=== PATIENT | female | born 1965 | race Caucasian/White ===

== ENCOUNTER 2020-03-15 14:00 | Outpatient (RCR) | payer OTHER, SELFPAY ==
--- NOTE | 2020-02-17 09:47 | MHC.PT.EP ---
[facility] [place] Office [place] Office [place] Office [address] Godwin Russell [address] [phone] F: [phone] F: [phone] F: [phone] F: [phone] Physical Therapy Plan of Care Date of Evaluation: 02/17/20 Date of Surgery: Diagnosis: LEFT SHOULDER STRAIN Assessment: PATIENT PRESENTS WITH SIGNS AND SYMPTOMS OF LEFT SHOULDER MUSCULAR STRAIN. PATIENT DOES PRESENT WITH DIFFICULTY WITH OUTSTRETCHED UE PATTERNS AND STABILITY WITH OBJECT MANIPULATION AWAY FROM MIDLINE. PATIENT DOES WARRANT SHOULDER STABILIZATION PROGRAM TO ADDRESS REDUCTION OF STRESS WITH LIFTING/CARRYING. PATIENT IS A GOOD CANDIDATE FOR SKILLED PT INTERVENTION TO ADDRESS GOALS AND IMPROVE SHOULDER FUNCTION TO ASSIST WITH DIFFICULTY WITH ADL'S. Frequency and Duration: The patient will be seen 2X WEEK X 6 WEEKS Short Term Goals: 1. PATIENT WILL BE INDEPENDENT WITH HEP 2. PATIENT WILL PRESENT WITH UPRIGHT AND MIDLINE POSTURE 3. REDUCTION IN TTP TO CERVICAL REGION BY 25% Assisted Goals: 1. INCREASE CERVICAL AROM BY 25% 2. REDUCE PAIN TO WORST TO 2/10 3. INCREASED SHOULDER STABILITY WITH OUTSTRETCHED UE PATTERNS 4. REDUCE TTP BY 75% 5. PATIENT WILL PRESENT WITH PROPER AND SAFE LIFTING/CARRYING MECHANICS TO REDUCE STRESS TO NECK AND SHOULDERS 6. INCREASE MMT TO SHOULDER GIRDLE BY 1 GRADE TO ASSIST WITH ADL'S Treatment Plan: Modalities to reduce pain, spasms and effusion. Manual therapy to restore motion and function. Therapeutic exercise to improve strength and flexibility. Neuromuscular re-education for posture and balance. Therapeutic activities to return to functional activities of daily living. Please sign and return to therapist. Thank you for your referral.
== END 2020-06-08 09:44 | disposition other institution (70) ==
LOC: HO.PTWFD 14:00
PROVIDERS: PCP Family Medicine; Visit Provider Family Medicine
DX: S46.912D Strain of unspecified muscle, fascia and tendon at shoulder and upper arm level, left arm, subsequent encounter (principal); M62.838 Other muscle spasm; X58.XXXD Exposure to other specified factors, subsequent encounter
CPT/HCPCS: 97110; 97140; 97162

== ENCOUNTER 2020-08-03 14:47 | Inpatient (IN) | payer OTHER, SELFPAY ==
[2020-08-03] VITALS (13 sets, daily range): BP systolic 88–105; BP diastolic 42–60; PULSE 61–67; RESP 15–20; TEMP 36.7–36.8; O2SAT 96–100; BMI 14.2; BMI 35.0
--- NOTE | ~2020-08-03 | XR_ITS ---
EXAMINATION: XR CHEST CLINICAL INFORMATION: Weakness COMPARISON: August 04, 2019 and April 29, 2019 TECHNIQUE: AP portable view of the chest was obtained. FINDINGS: No significant abnormality is noted involving the heart, lungs, mediastinum, bony thorax or soft tissues. XR/XR chest 1V IMPRESSION: No acute disease.
--- NOTE | 2020-08-03 15:01 | ECG_ITS ---
Test Reason : OD Blood Pressure : / mmHG Vent. Rate : 060 BPM Atrial Rate : 060 BPM P-R Int : 152 ms QRS Dur : 074 ms QT Int : 422 ms P-R-T Axes : 038 022 051 degrees QTc Int : 422 ms Normal sinus rhythm Normal ECG No previous ECGs available Referred By: Gela Wells Electronically Signed By:TY BURTON
--- NOTE | 2020-08-03 15:08 | PC.NURSE ---
poison control called at this time. states to continue with blood work and ekg. supportive measures and re-eval in an hour. be aware for : gabapentin- sedation, paxil- serotonin syndrome, tizanidine- dizziness and hypotension. music historian aware.
[2020-08-03] MEDS: Activated charcoaL 50 GM/240 ML ORAL.SUSP PO (15:23)
[2020-08-03] MEDS: 0.9 % Sodium Chloride 1,000 ML 999 ML IV ×2 (15:23→16:29)
[2020-08-03 15:54] LABS: MANUAL DIFF FLAG NO
[2020-08-03 16:00] LABS: Basophils Percent Auto 0.4 % (0-2); Hemoglobin 11.6 g/dl (12.0-16.0); Imm Gran Abs Auto 0.01 X10*3/uL (0.00-0.03); Imm Gran Pct Auto 0.1 % (0.0-0.4); Lymphocytes Absolute Auto 1.4 X10*3/uL (1.2-4.9); Lymphocytes Percent Auto 18.1 % (20-40); Mean Corpuscular HGB Conc 33.1 g/dl (31.0-35.0); Mean Corpuscular Hemoglobin 30.9 pg (27.0-33.0); Mean Corpuscular Volume 93.1 fL (80-98); Mean Platelet Volume 9.9 fL (9.4-12.3); Monocytes Absolute Auto 0.4 X10*3/uL (0.1-1.2); Monocytes Percent Auto 5.4 % (2-11); Neutrophils Absolute Auto 5.7 X10*3/uL (2.0-8.3); Platelet Count 281 X10*3/uL (160-400); Red Blood Count 3.76 X10*6/uL (4.20-5.50); Red Cell Distribution Width 12.7 % (11.0-16.0); White Blood Count 7.5 X10*3/uL (4.8-10.8)
--- NOTE | 2020-08-03 16:04 | PC.NURSE ---
pt drank all of the charcoal/ 1:1 sitter at bedside.
[2020-08-03 16:19] LABS: INTERNATIONAL NORM RATIO 1.1 (0.9-1.1); Prothrombin Time 13.2 SEC (10.8-13.0)
[2020-08-03 16:20] LABS: Ethanol < 10 mg/dL
[2020-08-03 16:21] LABS: Partial Thromboplastin Time 32.3 SEC (24.1-38.0)
[2020-08-03 16:23] LABS: Acetaminophen LAB 5 mcg/mL (<30); Salicylate < 5.0 mg/dL (15-30)
--- NOTE | 2020-08-03 16:23 | PC.NURSE ---
pt's other daughter (ezra) just left pt's bedside and she was also updated on pt's status as her sister gordon was earlier.
[2020-08-03 16:24] LABS: Alanine Aminotransferase 18 U/L (0-31); Albumin Level 4.2 g/dL (3.5-5.0); Alkaline Phosphatase 58 U/L (39-117); Anion Gap 13 (12-20); Aspartate Amino Transferase 19 U/L (5-31); Bilirubin Total 0.7 mg/dL (0.0-1.0); Blood Urea Nitrogen 10 mg/dL (9-16); Calcium 8.9 mg/dL (8.4-10.2); Carbon Dioxide 23 mmol/L (22-29); Chloride 105 mmol/L (96-108); Creatinine Clr Calc Pharmacy 42.2; Estimated Glomerular Filt Rate > 60; Glucose Random 133 mg/dL (60-115); Potassium 4.2 mmol/L (3.3-5.1); Sodium 137 mmol/L (135-145); Total Protein 6.7 g/dL (6.5-8.0)
--- NOTE | 2020-08-03 16:43 | ED.OVERDOSE ---
HPI - Overdose General Chief Complaint: Overdose Stated Complaint: SI Time Seen by Provider: 08/03/20 15:00 Source: EMS Mode of arrival: EMS Limitations: no limitations History of Present Illness HPI Narrative: 55-year-old female with history of fibromyalgia, gastroesophageal reflux disease, hyperlipidemia and depression who presents via EMS from home with intentional overdose on multiple of her medications including for tizanidine, gabapentin, paroxetine. Per EMS reported overdose was at 13:15 today and occurred as she was feeling depressed had a recent break-up with her boyfriend. Patient admits to putting tizanidine, paroxetine and gabapentin in a ?bowl? and took them as she was having ?pain all over? and did not want to deal with any more. complaint: intentional overdose Onset (ago): hour(s) Time: 13:15 Timing confirmed by: other (She called her daughter prior to the overdose and stated that she was going to. Daughter called EMS.) Intent: suicide attempt Context: Intentional Overdose: relationship problems Associated symptoms: depression Treatments Prior to Arrival: none Related Data Home Medications Medication Instructions Recorded Confirmed blood sugar diagnostic #10 ea 02/23/20 02/23/20 omeprazole 1 cap PO DAILY PRN 08/03/20 08/03/20 Previous Rx's Medication Instructions Recorded ibuprofen 600 mg tablet 600 mg PO Q8H PRN 30 Days #90 tab 02/23/20 atorvastatin 20 mg tablet 20 mg PO DAILY #90 tab 05/01/20 cholecalciferol (vitamin D3) 50 50 mcg PO DAILY #90 cap 05/01/20 mcg (2,000 unit) capsule paroxetine HCl 40 mg tablet 40 mg PO QAM #90 tab 05/01/20 tizanidine 4 mg tablet 4 mg PO BEDTIME #90 tab 05/01/20 gabapentin 300 mg capsule 300 mg PO BID #60 cap 07/09/20 Allergies Allergy/AdvReac Type Severity Reaction Status Date / Time Latex, Natural Rubber Allergy Intermediate RASH, HIVES Verified 02/23/20 15:06 [LATEX, NATURAL RUBBER] buspirone AdvReac Unknown chest Verified 02/23/20 15:06 heaviness, increased anxiety Pt states no known allergy to Allergy Unknown none Uncoded 02/23/20 15:06 Mirtazapine AdvReac Unknown extreme Uncoded 02/23/20 15:06 somnolence Review of Systems Review of Systems: Constitutional: No Weight loss, No Fever, No Chills, No Night Sweats, No Fatigue, No Malaise ENT/Mouth: No Hearing loss, No Ear Pain, No Nasal Congestion, No Sinus Pain, No Hoarseness, No sore throat, No Rhinorrhea, No Swallowing Difficulty Eyes: No Eye Pain, No Swelling, No Redness, No Foreign Body, No Discharge, No Vision Changes Cardiovascular: No Chest Pain, No SOB, No Dyspnea on Exertion, No Orthopnea, No Edema, No Palpitations Respiratory: No Cough, No Sputum, No Wheezing, No Dyspnea Gastrointestinal: No Nausea, No Vomiting, No Diarrhea, No Constipation, No abdominal Pain, No Hematochezia, No Melena Genitourinary: no irregular bleeding, No Dysuria, No Urinary Frequency, No Hematuria, No Urinary Incontinence, No Urgency, No Flank Pain, No Urinary Flow Changes, No Hesitancy Musculoskeletal: No joint pain, No Myalgias, No Joint Swelling Skin: No Skin Lesions, No rash Neuro: No Weakness, No Numbness, No Paresthesias, No Loss of Consciousness, No Dizziness, No Headache Psych: As noted per HPI Heme/Lymph: No Bruising, No Bleeding,No Lymphadenopathy Endocrine: No Polyuria, No Polydipsia, No Temperature Intolerance Yes all other systems are reviewed and are negative [facility] Past Medical History Medical History (Updated 08/03/20 @ 17:26 by Allen Ambrosio NP) Chronic GERD Depression Fibromyalgia Gastroesophageal reflux disease Social History Social History Use of substances other than those prescribed or required for medical reasons: No Advance Directives: No Advance Directives Information Provided: Yes Physical Exam Vital Signs: Vital Signs: Last Vital Signs Temp 98.3 F 08/03/20 14:53 Pulse 67 08/03/20 16:49 Resp 16 08/03/20 16:49 BP 89/46 L 08/03/20 16:49 Pulse Ox 100 08/03/20 16:49 Body Mass Index 14.2 Reviewed Const: General: awake and lethargic (Alert and oriented x3 but slow to speak) Nutritional Appearance: overweight Orientation/consciousness: patient oriented x3 and lethargic (Alert and oriented x3 but slow to speak) HENMT: Other: Gag reflex within normal limits Head: Yes normal to inspection Ears: hearing grossly normal bilaterally Eyes: General: appearance normal, both eyes and all related structures Visual Saha: normal visual saha by confrontation Neck: Neck: Yes normal visual inspection, No positive Brudzinski's sign, No positive Kernig's sign and No tender Thyroid: Thyroid normal Chest: Chest palpation & inspection: normal inspection of the chest Resp: Effort & Inspection: normal respiratory effort Auscultation: clear to auscultation bilaterally Cardio: Jugular venous distension: no JVD Rhythm: regular rhythm Heart sounds: S1 normal heart sound present and S2 normal heart sound present GI: Inspection: Yes normal to inspection Palpation (GI): Soft to palpation Percussion: Yes normal to percussion Auscultation: normal bowel sounds : General: Yes no CVA tenderness Back/Spine/Pelvis: Back: no CVA tenderness Skin: General skin exam: no rashes or lesions noted Neuro: General: patient oriented x3 Cranial nerves: Yes CN's II-XII intact bilaterally, Yes Facial sensation intact/muscles of mastication intact and Yes Normal accommodation reflex present Extrem: General: Yes normal to inspection Psych: Speech and movement: Slowed speech present (Psych) Affect: Sad affect present Attitude: cooperative Thought content: Suicidality present Course Reevaluation(s) Reevaluation #1: 1510 In review 55-year-old female with fibromyalgia, GERD, hyperlipidemia presenting with intentional overdose on multiple of her medications including [id number] agonists, SSRI and anticonvulsant reportedly occurred prior to arrival unsure the exact time right now daughter is on her way. We will go ahead and give her activated charcoal and check EKG, labs including liver function tests, Tylenol and acetaminophen with alcohol, U tox CPK as she is on a statin and consult poison Control. At this time she is managing her airway, blood pressure slightly on the soft side otherwise she is alert and oriented x3. List from the primary care on 02/23/2020 Listed medication include atorvastatin 20 mg Vitamin D 350 mcg Gabapentin no dosage Nabumetone no dosage Paroxetine HCl 40 mg Tizanidine 4 mg Sign [id number] To Sarika LEON Aware that I spoke to hospitalist already regarding the patient and accepted the care likely will have to wait until night hospitalist given influx of admissions. Repeat labs are already ordered Reevaluation #2: 1540 Daughter comes in and states he had attacks at 13:15 mother stating that she was going to overdose she called her and told her how she was feeling and states she was not take her pills hung up the phone and apparently took her pills daughter was in our way does she called for help and had it this way. Per daughter she has 1 prior history of SI about 15 years ago at the time when her broke up with her and she attempted at side by way of cutting herself. BP on soft side 90/57 per dtr she at baseline runs low Reevaluation #3: 1630 Initial set of blood work all stable appearing. Blood pressure remains on the soft side after L of fluid 2nd L bolus provided She is alert and oriented remains slightly lethargic. Repeat labs for 1800 ordered. Additional Reevaluation(s): I have evaluated patient multiple times at bedside for evaluation of airway management and hemodynamics stability as well as consultation with the patient's family/daughter at bedside. In addition to this coordinating care with intensive care/intermediate care. Consultations Consultation #1: 1511 Case discussed with poison control based on the findings to monitor for serotonin syndrome Supportive care in terms of airway and monitoring Please refer to nursing note Consultation #2: 1620 Case d/w senior planner Dr. Holder the given the extent of her overdose and the need for observation. Given that she is maintaining her airway and the drug classes feels that observation is warranted but not at the ICU level. Consultation #3: 1640 Case discussed with hospitalist Dr. Nicholson labs and case reviewed agreeable admission though they are backed up and likely will go to evening attending. MDM - Overdose Differential Diagnosis Differential diagnosis: Likely suicide attempt by multiple drug overdose, drug overdose and accidental drug ingestion Medical Records Attestation: I reviewed the patient's medical records. Medical records narrative: 2019 visit to primary care reviewed Lab Data Attestation: I reviewed the patient's lab results. Result diagrams: 08/03/20 15:43 08/03/20 15:43 Labs: Lab Results 08/03/20 08/03/20 08/03/20 Range/Units 15:43 15:43 15:43 WBC 7.5 (4.8-10.8) X10*3/uL RBC 3.76 L (4.20-5.50) X10*6/uL Hgb 11.6 L (12.0-16.0) g/dl Hct 35.0 L (37-47) % MCV 93.1 (80-98) fL MCH 30.9 (27.0-33.0) pg MCHC 33.1 (31.0-35.0) g/dl RDW 12.7 (11.0-16.0) % Plt Count 281 (160-400) X10*3/uL MPV 9.9 (9.4-12.3) fL Immature Gran % (Auto) 0.1 (0.0-0.4) % Neut % (Auto) 76.0 H (45-73) % Lymph % (Auto) 18.1 L (20-40) % [place] % (Auto) 5.4 (2-11) % Eos % (Auto) 0.0 (0-4) % Baso % (Auto) 0.4 (0-2) % Lymph # (Auto) 1.4 (1.2-4.9) X10*3/uL [place] # (Auto) 0.4 (0.1-1.2) X10*3/uL Eos # (Auto) 0.0 (0.0-0.4) X10*3/uL Baso # (Auto) 0.0 (0.0-0.2) X10*3/uL Abs Immat Gran (auto) 0.01 (0.00-0.03) X10*3/uL Absolute Neuts (auto) 5.7 (2.0-8.3) X10*3/uL Absolute Nucleated RBC 0.000 (0.0-0.012) X10*3/uL Nucleated RBC % (auto) 0.0 (0.0-0.2) /100WBC PT 13.2 H (10.8-13.0) SEC INR 1.1 (0.9-1.1) APTT 32.3 (24.1-38.0) SEC Sodium 137 (135-145) mmol/L Potassium 4.2 (3.3-5.1) mmol/L Chloride 105 (96-108) mmol/L Carbon Dioxide 23 (22-29) mmol/L Anion Gap 13 (12-20) BUN 10 (9-16) mg/dL Creatinine 0.84 (0.5-1.4) mg/dL Estim Creat Clear Calc 42.2 Estimated GFR > 60 Random Glucose 133 H (60-115) mg/dL Lactic Acid (0.5-2.0) mmol/L Calcium 8.9 (8.4-10.2) mg/dL Magnesium 2.0 (1.6-2.6) mg/dL Total Bilirubin 0.7 (0.0-1.0) mg/dL AST 19 (5-31) U/L ALT 18 (0-31) U/L Alkaline Phosphatase 58 (39-117) U/L Total Creatine Kinase 91 (26-140) U/L Total Protein 6.7 (6.5-8.0) g/dL Albumin 4.2 (3.5-5.0) g/dL Salicylates (15-30) mg/dL Acetaminophen (<30) mcg/mL Ethyl Alcohol mg/dL 08/03/20 08/03/20 08/03/20 Range/Units 15:43 15:43 15:44 WBC (4.8-10.8) X10*3/uL RBC (4.20-5.50) X10*6/uL Hgb (12.0-16.0) g/dl Hct (37-47) % MCV (80-98) fL MCH (27.0-33.0) pg MCHC (31.0-35.0) g/dl RDW (11.0-16.0) % Plt Count (160-400) X10*3/uL MPV (9.4-12.3) fL Immature Gran % (Auto) (0.0-0.4) % Neut % (Auto) (45-73) % Lymph % (Auto) (20-40) % [place] % (Auto) (2-11) % Eos % (Auto) (0-4) % Baso % (Auto) (0-2) % Lymph # (Auto) (1.2-4.9) X10*3/uL [place] # (Auto) (0.1-1.2) X10*3/uL Eos # (Auto) (0.0-0.4) X10*3/uL Baso # (Auto) (0.0-0.2) X10*3/uL Abs Immat Gran (auto) (0.00-0.03) X10*3/uL Absolute Neuts (auto) (2.0-8.3) X10*3/uL Absolute Nucleated RBC (0.0-0.012) X10*3/uL Nucleated RBC % (auto) (0.0-0.2) /100WBC PT (10.8-13.0) SEC INR (0.9-1.1) APTT (24.1-38.0) SEC Sodium (135-145) mmol/L Potassium (3.3-5.1) mmol/L Chloride (96-108) mmol/L Carbon Dioxide (22-29) mmol/L Anion Gap (12-20) BUN (9-16) mg/dL Creatinine (0.5-1.4) mg/dL Estim Creat Clear Calc Estimated GFR Random Glucose (60-115) mg/dL Lactic Acid 1.0 (0.5-2.0) mmol/L Calcium (8.4-10.2) mg/dL Magnesium (1.6-2.6) mg/dL Total Bilirubin (0.0-1.0) mg/dL AST (5-31) U/L ALT (0-31) U/L Alkaline Phosphatase (39-117) U/L Total Creatine Kinase (26-140) U/L Total Protein (6.5-8.0) g/dL Albumin (3.5-5.0) g/dL Salicylates < 5.0 L (15-30) mg/dL Acetaminophen 5 (<30) mcg/mL Ethyl Alcohol < 10 mg/dL Imaging Data Chest x-ray: Radiologist's impression: [address] [id number] ReportSigned Patient: Sheri BraggMR#: [id number]: [id number]:[id number]/Sex: 55 / FADM Date: 08/03/20Loc: Raegan Mcgrath: Ordering Physician: Allen Ambrosio NP Date of Service: 08/03/20 Procedure(s): XR chest 1V Accession Number(s): [id number] cc: Allen Ambrosio NP~ EXAMINATION: XR CHEST CLINICAL INFORMATION: Weakness COMPARISON: August 04, 2019 and April 29, 2019 TECHNIQUE: AP portable view of the chest was obtained. FINDINGS: No significant abnormality is noted involving the heart, lungs, mediastinum, bony thorax or soft tissues. XR/XR chest 1V IMPRESSION: No acute disease. Dictated By:SVEN MOCK V MDSigned By:<Electronically signed by SVEN MOCK MD in OV>08/03/20 1539 DD/ 1501TD/TT: General Engineer: ANA ECG Data Interpretation: EKG 1. Normal sinus rhythm Rate 60 P.R. interval 152 QRS 74 QT/QTC 422/[address] segment changes. No previous Critical Care Time Critical Care Time Critical Care Time: Yes Total Critical Care Time: 65 Attestation: Patient evaluated directly upon arrival for potential hemodynamic instability/airway compromise secondary to ingestion of multiple different class of medications. Subsequently multiple visits to bedside for evaluation of her blood pressure as well as airway management and coordination of care including coordination of care with intensive care unit, intermediate care and family. Discharge Plan Discharge Clinical Impression: Depression, Suicide attempt by multiple drug overdose, Intentional overdose of selective serotonin reuptake inhibitor (SSRI) Patient Disposition: Admitted As Inpatient
--- NOTE | 2020-08-03 16:45 | PC.NURSE ---
manda ([facility]) at bedside, pt/daughter aware of plan of care for admission to hosp.
[2020-08-03 17:25] LABS: Glucose Urine UA NEG (NEG); Leukocyte Esterase Urine NEG (NEG); Nitrite Urine NEG (NEG); Specific Gravity - Urine <= 1.005 (1.005-1.025); Urine Blood NEG (NEG); Urine Ketones 15 MG/DL (NEG); Urine Protein NEG (NEG-TRACE)
[2020-08-03 17:29] LABS: Appearance Urine CLEAR; Color Urine YELLOW
[2020-08-03 17:45] LABS: RBC Urine 0-2 /HPF (0); Squamous Epithelial Cell Urine TRACE /LPF; WBC Urine 0 /HPF (0-4)
[2020-08-03 17:59] LABS: Amphetamine Screen Urine Not Detected (Not Detect); Barbiturates, Urine Not Detected (Not Detect); Benzodiazepines Screen Urine Not Detected (Not Detect); Cannabinoid Screen Urine Not Detected (Not Detect); Cocaine Screen Urine Not Detected (Not Detect); Opiate Screen Urine Not Detected (Not Detect); Phencyclidine Screen Urine Not Detected (Not Detect)
--- NOTE | 2020-08-03 18:00 | ECG_ITS ---
Test Reason : OD Blood Pressure : / mmHG Vent. Rate : 065 BPM Atrial Rate : 065 BPM P-R Int : 154 ms QRS Dur : 080 ms QT Int : 402 ms P-R-T Axes : 038 022 030 degrees QTc Int : 418 ms Normal sinus rhythm Normal ECG No significant changes when compared with the previous EKG of 03 august 2020 Referred By: Gela Wells Electronically Signed By:TY BURTON
--- NOTE | 2020-08-03 18:06 | PC.NURSE ---
poison control ([place] [facility] [place] and was updated on pt status. owen (poison control) states no new recommendations at this time, but they will continue to follow pt's progress when she gets on the medical floor.
[2020-08-03 18:48] LABS: COVID-19 Test Negative (Negative)
[2020-08-03 18:49] LABS: Acetaminophen LAB 2 mcg/mL (<30); Alanine Aminotransferase 17 U/L (0-31); Albumin Level 3.7 g/dL (3.5-5.0); Alkaline Phosphatase 51 U/L (39-117); Anion Gap 12 (12-20); Aspartate Amino Transferase 16 U/L (5-31); Bilirubin Total 0.5 mg/dL (0.0-1.0); Blood Urea Nitrogen 9 mg/dL (9-16); Calcium 7.8 mg/dL (8.4-10.2); Carbon Dioxide 19 mmol/L (22-29); Chloride 113 mmol/L (96-108); Creatinine Clr Calc Pharmacy 37.7; Estimated Glomerular Filt Rate > 60; Glucose Random 124 mg/dL (60-115); Potassium 4.1 mmol/L (3.3-5.1); Salicylate < 5.0 mg/dL (15-30); Sodium 140 mmol/L (135-145); Total Protein 5.7 g/dL (6.5-8.0)
[2020-08-03] MEDS: Acetaminophen 325 MG TABLET 650 MG PO (23:03)
[2020-08-03] MEDS: Enoxaparin Sodium 40 MG/0.4 ML SYRINGE SUBCUT (23:31)
[2020-08-04 00:09] LABS: Anion Gap 12 (12-20); Blood Urea Nitrogen 7 mg/dL (9-16); Calcium 7.9 mg/dL (8.4-10.2); Carbon Dioxide 22 mmol/L (22-29); Chloride 112 mmol/L (96-108); Creatinine Clr Calc Pharmacy 77.4; Estimated Glomerular Filt Rate > 60; Glucose Random 99 mg/dL (60-115); Sodium 142 mmol/L (135-145)
[2020-08-04] MEDS: 0.9 % Sodium Chloride Flush 3 ML SYRINGE IVFLUSH ×3 (01:21→17:42)
[2020-08-04] MEDS: traMADoL HCL 50 MG TABLET PO (03:15)
[2020-08-04 04:00] VITALS: BP 95/59; PULSE 81; RESP 20; O2SAT 99
--- NOTE | 2020-08-04 04:00 | PM.IMHP ---
History of Present Illness Date of Service: 08/03/20 Chief Complaint: overdose Medical history of GERD, depression, fibromyalgia, who presents to the hospital after was suicide attempt. Patient is somnolent but arousable. She is answering questions appropriately. She reports that she took various medications including Paxil, gabapentin, and 10 is a Arturo because she wanted to stop the pain. She says that she has pain all over she just wants this pain to stop and therefore she tried to end her life. She is still suicidal, no homicidal. At this time she denies any abdominal pain, chest pain, shortness of breath, headache, change in vision, no nausea vomiting, no abdominal pain, no diarrhea or constipation, no urinary symptoms and no lower extremity edema. On arrival to the ED hemodynamically stable with no abnormal vitals Labs are significant for WBC count of 7.5, hemoglobin of 11.6, PT of 13.2, INR of 1.1, sodium 137, potassium 4.2, labs otherwise unremarkable, UDS negative, amitriptyline level pending, Tylenol level not detected, salicylate level negative Case was discussed with poison control by ED PA and patient will be admitted for monitoring of serotonin syndrome Past medical history as below and confirmed with patient Review of Systems Review of Systems: Yes all other systems are reviewed and are negative [facility] Medical History Chronic GERD Depression Fibromyalgia Gastroesophageal reflux disease Social History Household Members: None Housing: Homeless Smoking Status: Never smoker Use of substances other than those prescribed or required for medical reasons: Yes Substance Use Type: Marijuana Substance Use Type Other:: CBD/THC tincture Last Used Substance: Days (ago) Currently Displaying Signs/Symptoms of Drug Intoxication Withdrawal: No Have you been hit, kicked, punched, or otherwise hurt by someone within the past year? If so, by whom?: No Do you feel safe in your current relationship?: No Current Relationship Is there a partner from a previous relationship who is making you feel unsafe now?: No Are you made to feel afraid or neglected: No Advance Directives: No Advance Directives Information Provided: Yes Do you have thoughts of harming others: None Do you have a plan to hurt others: No Plan Recently lost weight without trying: No Meds Allergies Allergy/AdvReac Type Severity Reaction Status Date / Time Latex, Natural Rubber Allergy Intermediate RASH, HIVES Verified 02/23/20 15:06 [LATEX, NATURAL RUBBER] buspirone AdvReac Unknown chest Verified 02/23/20 15:06 heaviness, increased anxiety Pt states no known allergy to Allergy Unknown none Uncoded 02/23/20 15:06 Mirtazapine AdvReac Unknown extreme Uncoded 02/23/20 15:06 somnolence Active Medications: Current Medications Generic Name Dose Route Start Last Admin Trade Name Freq PRN Reason Stop Dose Admin Acetaminophen 650 mg 08/03/20 22:53 08/03/20 23:03 Acetaminophen 325 Mg Tablet PO 650 mg Q6H PRN Administration Pain, Mild (Pain Scale 1-3) Enoxaparin Sodium 40 mg 08/03/20 23:00 08/03/20 23:31 Enoxaparin Sodium 40 Mg/0.4 Ml Syringe SUBCUT 40 mg Q24H DA Administration Sodium Chloride 3 ml 08/04/20 00:00 08/04/20 01:21 0.9 % Sodium Chloride Flush 3 Ml Syringe IVFLUSH 3 ml QSHIFT DA Administration Home Medications Medication Instructions Recorded Confirmed Last Taken Type blood sugar diagnostic #10 ea 02/23/20 02/23/20 Unknown History omeprazole 1 cap PO DAILY PRN 08/03/20 08/03/20 08/03/20 History Physical Exam Vital Signs and Narrative: Vital Signs: Last Vital Signs Temp 98.0 F 08/03/20 23:13 Pulse 66 08/03/20 23:13 Resp 20 08/03/20 23:13 BP 105/58 L 08/03/20 23:13 Pulse Ox 100 08/03/20 23:13 Body Mass Index 35.0 Const: Other: Somnolent but arousable General: cooperative and no acute distress Orientation/consciousness: patient oriented x3 Eyes: General: appearance normal, both eyes and all related structures Resp: Effort & Inspection: normal respiratory effort and able to speak in complete sentences Cardio: Rate: regular rate Rhythm: regular rhythm GI: Palpation (GI): Soft to palpation Auscultation: normal bowel sounds Skin: General skin exam: no rashes or lesions noted Neuro: General: patient oriented x3 Cognition (Neuro): normal cognition Extrem: General: Yes normal to inspection and Yes no pedal edema Results Labs CBC and Chem 7: 08/03/20 15:43 08/03/20 23:29 Labs: Laboratory Results - last 24 hr 08/03/20 08/03/20 08/03/20 15:43 15:43 15:43 MCV 93.1 MCH 30.9 MCHC 33.1 RDW 12.7 Plt Count 281 MPV 9.9 Immature Gran % (Auto) 0.1 Neut % (Auto) 76.0 H Lymph % (Auto) 18.1 L [place] % (Auto) 5.4 Eos % (Auto) 0.0 Baso % (Auto) 0.4 Lymph # (Auto) 1.4 [place] # (Auto) 0.4 Eos # (Auto) 0.0 Baso # (Auto) 0.0 Abs Immat Gran (auto) 0.01 Absolute Neuts (auto) 5.7 Absolute Nucleated RBC 0.000 Nucleated RBC % (auto) 0.0 PT 13.2 H INR 1.1 APTT 32.3 Anion Gap 13 Estim Creat Clear Calc 42.2 Estimated GFR > 60 Random Glucose 133 H Lactic Acid Calcium 8.9 Magnesium 2.0 Total Bilirubin 0.7 AST 19 ALT 18 Alkaline Phosphatase 58 Total Creatine Kinase 91 Total Protein 6.7 Albumin 4.2 Urine Color Urine Appearance Urine pH Ur Specific [place] Urine Protein Urine Glucose (UA) Urine Ketones Urine Blood Urine Nitrite Ur Leukocyte Esterase Urine RBC Urine WBC Ur Squamous Epith Cells Urine Bacteria Salicylates Urine Opiates Screen Acetaminophen Ur Barbiturates Screen Ur Phencyclidine Scrn Ur Amphetamines Screen U Benzodiazepines Scrn Urine Cocaine Screen U Marijuana (THC) Screen Ethyl Alcohol COVID-19 (BRANDI) COVID-19 Clin Com 08/03/20 08/03/20 08/03/20 15:43 15:43 15:44 MCV MCH MCHC RDW Plt Count MPV Immature Gran % (Auto) Neut % (Auto) Lymph % (Auto) [place] % (Auto) Eos % (Auto) Baso % (Auto) Lymph # (Auto) [place] # (Auto) Eos # (Auto) Baso # (Auto) Abs Immat Gran (auto) Absolute Neuts (auto) Absolute Nucleated RBC Nucleated RBC % (auto) PT INR APTT Anion Gap Estim Creat Clear Calc Estimated GFR Random Glucose Lactic Acid 1.0 Calcium Magnesium Total Bilirubin AST ALT Alkaline Phosphatase Total Creatine Kinase Total Protein Albumin Urine Color Urine Appearance Urine pH Ur Specific [place] Urine Protein Urine Glucose (UA) Urine Ketones Urine Blood Urine Nitrite Ur Leukocyte Esterase Urine RBC Urine WBC Ur Squamous Epith Cells Urine Bacteria Salicylates < 5.0 L Urine Opiates Screen Acetaminophen 5 Ur Barbiturates Screen Ur Phencyclidine Scrn Ur Amphetamines Screen U Benzodiazepines Scrn Urine Cocaine Screen U Marijuana (THC) Screen Ethyl Alcohol < 10 COVID-19 (BRANDI) COVID-19 Clin Com 08/03/20 08/03/20 08/03/20 17:04 17:04 17:49 MCV MCH MCHC RDW Plt Count MPV Immature Gran % (Auto) Neut % (Auto) Lymph % (Auto) [place] % (Auto) Eos % (Auto) Baso % (Auto) Lymph # (Auto) [place] # (Auto) Eos # (Auto) Baso # (Auto) Abs Immat Gran (auto) Absolute Neuts (auto) Absolute Nucleated RBC Nucleated RBC % (auto) PT INR APTT Anion Gap Estim Creat Clear Calc Estimated GFR Random Glucose Lactic Acid Calcium Magnesium Total Bilirubin AST ALT Alkaline Phosphatase Total Creatine Kinase Total Protein Albumin Urine Color YELLOW Urine Appearance CLEAR Urine pH 6.0 Ur Specific [place] <= 1.005 Urine Protein NEG Urine Glucose (UA) NEG Urine Ketones 15 Urine Blood NEG Urine Nitrite NEG Ur Leukocyte Esterase NEG Urine RBC 0-2 Urine WBC 0 Ur Squamous Epith Cells TRACE Urine Bacteria NONE Salicylates Urine Opiates Screen Not Detected Acetaminophen Ur Barbiturates Screen Not Detected Ur Phencyclidine Scrn Not Detected Ur Amphetamines Screen Not Detected U Benzodiazepines Scrn Not Detected Urine Cocaine Screen Not Detected U Marijuana (THC) Screen Not Detected Ethyl Alcohol COVID-19 (BRANDI) Negative COVID-19 Clin Com See Note 08/03/20 08/03/20 17:54 23:29 MCV MCH MCHC RDW Plt Count MPV Immature Gran % (Auto) Neut % (Auto) Lymph % (Auto) [place] % (Auto) Eos % (Auto) Baso % (Auto) Lymph # (Auto) [place] # (Auto) Eos # (Auto) Baso # (Auto) Abs Immat Gran (auto) Absolute Neuts (auto) Absolute Nucleated RBC Nucleated RBC % (auto) PT INR APTT Anion Gap 12 12 Estim Creat Clear Calc 37.7 77.4 Estimated GFR > 60 > 60 Random Glucose 124 H 99 Lactic Acid Calcium 7.8 L D 7.9 L Magnesium Total Bilirubin 0.5 AST 16 ALT 17 Alkaline Phosphatase 51 Total Creatine Kinase 79 Total Protein 5.7 L Albumin 3.7 Urine Color Urine Appearance Urine pH Ur Specific [place] Urine Protein Urine Glucose (UA) Urine Ketones Urine Blood Urine Nitrite Ur Leukocyte Esterase Urine RBC Urine WBC Ur Squamous Epith Cells Urine Bacteria Salicylates < 5.0 L Urine Opiates Screen Acetaminophen 2 Ur Barbiturates Screen Ur Phencyclidine Scrn Ur Amphetamines Screen U Benzodiazepines Scrn Urine Cocaine Screen U Marijuana (THC) Screen Ethyl Alcohol COVID-19 (BRANDI) COVID-19 Clin Com Imaging Radiologist's Impressions: Impressions Chest X-Ray 08/03/20 15:01 IMPRESSION: No acute disease. Assessment and Plan (1) Suicide attempt by multiple drug overdose: Status: Acute (2) Intentional overdose of selective serotonin reuptake inhibitor (SSRI): Status: Acute (3) Depression: Status: Acute This is a 55-year-old female with past medical history of GERD, depression, presents to the hospital after a suicide attempt by ingesting multiple medications. Quantity unknown. # suicide attempt by drug overdose - patient reports that she took Paxil, gabapentin, and 10 is a Arturo - currently hemodynamically stable - labs unremarkable - EKG within normal Plan: - case has been discussed with poison control - patient will be admitted for monitoring of serotonin syndrome - sitter at bedside - psych consult # SSIR overdose - will admit and monitor for serotonin syndrome - holding all meds at this time # GERD - hold PPI # Depression - Hold antidepressants given med overdose DVT prophylaxis: Lovenox
[2020-08-04 05:04] LABS: MANUAL DIFF FLAG NO
[2020-08-04 05:07] LABS: Basophils Percent Auto 0.5 % (0-2); Hematocrit 35.1 % (37-47); Hemoglobin 11.4 g/dl (12.0-16.0); Imm Gran Abs Auto 0.01 X10*3/uL (0.00-0.03); Imm Gran Pct Auto 0.1 % (0.0-0.4); Lymphocytes Absolute Auto 1.7 X10*3/uL (1.2-4.9); Lymphocytes Percent Auto 23.3 % (20-40); Mean Corpuscular HGB Conc 32.5 g/dl (31.0-35.0); Mean Corpuscular Hemoglobin 30.7 pg (27.0-33.0); Mean Corpuscular Volume 94.6 fL (80-98); Mean Platelet Volume 10.3 fL (9.4-12.3); Monocytes Absolute Auto 0.4 X10*3/uL (0.1-1.2); Neutrophils Absolute Auto 5.1 X10*3/uL (2.0-8.3); Neutrophils Percent Auto 70.1 % (45-73); Platelet Count 261 X10*3/uL (160-400); Red Blood Count 3.71 X10*6/uL (4.20-5.50); Red Cell Distribution Width 12.9 % (11.0-16.0); White Blood Count 7.3 X10*3/uL (4.8-10.8)
[2020-08-04 05:27] LABS: Anion Gap 15 (12-20); Blood Urea Nitrogen 6 mg/dL (9-16); Carbon Dioxide 17 mmol/L (22-29); Chloride 113 mmol/L (96-108); Creatinine Clr Calc Pharmacy 89.1; Estimated Glomerular Filt Rate > 60; Glucose Random 95 mg/dL (60-115); Potassium 3.9 mmol/L (3.3-5.1); Sodium 141 mmol/L (135-145)
[2020-08-04 07:45] VITALS: BP 116/65; PULSE 82; RESP 20; TEMP 36.2; O2SAT 99
[2020-08-04 09:56] VITALS: O2SAT 96
[2020-08-04] MEDS: Acetaminophen 325 MG TABLET 650 MG PO ×2 (10:19→17:41)
--- NOTE | 2020-08-04 10:29 | MHC.CM.PN ---
met with pt who has a sitter ,pt will be seen by bhn who will determine pts safe dc paln
[2020-08-04 12:00] VITALS: BP 148/81; PULSE 69; RESP 18; TEMP 36.4; O2SAT 98
--- NOTE | 2020-08-04 12:11 | HO.PM.IMPN ---
Subjective Subjective Date of Service: 08/04/20 Interval History: Patient feels better this morning, complaining of prn headache ,generalized body ache unable to give detailed history about how many pills of Paxil or gabapentin she took, sounds very depressed , crying recently came to find out that her boyfriend is alcoholic. ROS General prn headaches, no dizziness no fever chills. CVS no chest pain, no palpitation. Respiratory no cough, no sob. Gastrointestinal no nausea, no vomiting, no abdominal pain Physical Exam Vital Signs: Vital Signs: Last Vital Signs Temp 97.2 F 08/04/20 07:45 Pulse 82 08/04/20 07:45 Resp 20 08/04/20 07:45 BP 116/65 08/04/20 07:45 Pulse Ox 96 08/04/20 09:56 Body Mass Index 35.0 General no acute distress. Neck is supple no JVD. CVS regular rate rhythm, Respiratory lungs clear to auscultation, no respiratory distress, no wheeze, no rhonchi. Gastrointestinal abdomen soft, nontender, bowel sounds audible, no guarding , no rigidity. Extremities no clubbing cyanosis or edema. Neuro nonfocal , speech clear. Psych depressed mood Skin no rash Objective Data Current Medications Generic Name Dose Route Start Last Admin Trade Name Freq PRN Reason Stop Dose Admin Acetaminophen 650 mg 08/03/20 22:53 08/04/20 10:19 Acetaminophen 325 Mg Tablet PO 650 mg Q6H PRN Administration Pain, Mild (Pain Scale 1-3) Enoxaparin Sodium 40 mg 08/03/20 23:00 08/03/20 23:31 Enoxaparin Sodium 40 Mg/0.4 Ml Syringe SUBCUT 40 mg Q24H DA Administration Sodium Chloride 3 ml 08/04/20 00:00 08/04/20 10:19 0.9 % Sodium Chloride Flush 3 Ml Syringe IVFLUSH 3 ml QSHIFT DA Administration Labs CBC & Chem 7: 08/04/20 04:22 08/04/20 04:22 Assessment and Plan (1) Suicide attempt by multiple drug overdose: Status: Acute (2) Intentional overdose of selective serotonin reuptake inhibitor (SSRI): Status: Acute (3) Depression: Status: Acute (4) Gastroesophageal reflux disease: Status: Acute (5) Fibromyalgia: Status: Acute Assessment and Plan: 55-year-old female with past medical history of GERD, depression, presents to the hospital after a suicide attempt by ingesting multiple medications. Quantity unknown. # suicide attempt by drug overdose Patient took Paxil, tizanidine and gabapentin unknown quantity of pills, no evidence of serotonin toxicity, no tachycardia, no tremors no hyper-reflexia Labs showed normal CPK but low bicarb, currently hemodynamically stable, patient treated with charcoal and IV fluid in the ER Likely severe underlying depression currently not being followed by psychiatry or counseling being managed by primary care physician common a likely aggravating factors are boyfriend is an alcoholic and patient was told that she has TESS positive speckled pattern and has not seen a specialist due to COVID. Continue sitter at bedside/psych eval will need BPH crisis once medically stable # generalized pain/headache/fibromyalgia at present patient asymptomatic last night was given tramadol with good relief requesting for as needed tramadol, will order Ultram, patient appears very comfortable at present. # GERD Will resume PPI # Depression Hold antidepressants given med overdose DVT prophylaxis: Lovenox
[2020-08-04 16:00] VITALS: BP 123/65; PULSE 80; RESP 18; TEMP 37.3; O2SAT 95
[2020-08-04 19:03] VITALS: BP 96/66; PULSE 85; RESP 18; TEMP 36.1; O2SAT 97
[2020-08-04] MEDS: traMADoL HCL 50 MG TABLET 25 MG PO (22:22)
[2020-08-04] MEDS: Enoxaparin Sodium 40 MG/0.4 ML SYRINGE SUBCUT (22:22)
[2020-08-05] VITALS (7 sets, daily range): BP systolic 95–121; BP diastolic 54–77; PULSE 70–80; RESP 16–20; TEMP 36.1–36.6; O2SAT 96–99
[2020-08-05] MEDS: 0.9 % Sodium Chloride Flush 3 ML SYRINGE IVFLUSH ×3 (00:12→16:39)
[2020-08-05] MEDS: Omeprazole 20 MG CAPSULE.DR PO (06:36)
[2020-08-05 08:01] LABS: Anion Gap 14 (12-20); Blood Urea Nitrogen 12 mg/dL (9-16); Carbon Dioxide 22 mmol/L (22-29); Chloride 110 mmol/L (96-108); Creatinine Clr Calc Pharmacy 79.3; Estimated Glomerular Filt Rate > 60; Glucose Random 104 mg/dL (60-115); Potassium 4.3 mmol/L (3.3-5.1); Sodium 142 mmol/L (135-145)
[2020-08-05 08:13] LABS: Calcium 8.7 mg/dL (8.4-10.2)
[2020-08-05] MEDS: traMADoL HCL 50 MG TABLET 25 MG PO ×2 (09:18→22:26)
--- NOTE | 2020-08-05 09:36 | HO.PM.IMPN ---
Subjective Subjective Date of Service: 08/05/20 Interval History: Patient seen and examined at bedside. She is feeling better, less suicidal, would like to go home. She denies any abdominal pain nausea or vomiting, no headache, no change in vision, no chest pain or shortness of breath. No fever or chills. Physical Exam Vital Signs: Vital Signs: Last Vital Signs Temp 97.7 F 08/05/20 07:18 Pulse 70 08/05/20 07:18 Resp 18 08/05/20 07:18 BP 96/54 L 08/05/20 07:18 Pulse Ox 98 08/05/20 07:18 Body Mass Index 35.0 Const: General: cooperative and no acute distress Orientation/consciousness: patient oriented x3 Eyes: General: appearance normal, both eyes and all related structures Resp: Effort & Inspection: normal respiratory effort and able to speak in complete sentences Auscultation: clear to auscultation bilaterally Cardio: Rate: regular rate Rhythm: regular rhythm GI: Palpation (GI): Soft to palpation Auscultation: normal bowel sounds Skin: General skin exam: no rashes or lesions noted Neuro: General: patient oriented x3 Cognition (Neuro): normal cognition Extrem: General: Yes normal to inspection and Yes no pedal edema Objective Data Current Medications Generic Name Dose Route Start Last Admin Trade Name Freq PRN Reason Stop Dose Admin Acetaminophen 650 mg 08/03/20 22:53 08/04/20 17:41 Acetaminophen 325 Mg Tablet PO 650 mg Q6H PRN Administration Pain, Mild (Pain Scale 1-3) Enoxaparin Sodium 40 mg 08/03/20 23:00 08/04/20 22:22 Enoxaparin Sodium 40 Mg/0.4 Ml Syringe SUBCUT 40 mg Q24H DA Administration Omeprazole 20 mg 08/05/20 06:30 08/05/20 06:36 Omeprazole 20 Mg Capsule.Dr PO 20 mg DAILY@0630 DA Administration Sodium Chloride 3 ml 08/04/20 00:00 08/05/20 09:13 0.9 % Sodium Chloride Flush 3 Ml Syringe IVFLUSH 3 ml QSHIFT DA Administration Tramadol HCl 25 mg 08/04/20 12:25 08/05/20 09:18 Tramadol Hcl 50 Mg Tablet PO 25 mg Q6H PRN Administration Pain, Severe (Pain Scale 7-10) Labs CBC & Chem 7: 08/04/20 04:22 08/05/20 07:08 Assessment and Plan (1) Suicide attempt by multiple drug overdose: Status: Acute (2) Intentional overdose of selective serotonin reuptake inhibitor (SSRI): Status: Acute (3) Depression: Status: Acute Assessment and Plan: 55-year-old female with past medical history of GERD, depression, presents to the hospital after a suicide attempt by ingesting multiple medications. Quantity unknown. # suicide attempt by drug overdose - Patient took Paxil, tizanidine and gabapentin unknown quantity of pills, no evidence of serotonin toxicity, no tachycardia, no tremors no hyper-reflexia - Labs showed normal CPK but low bicarb, currently hemodynamically stable, patient treated with charcoal and IV fluid in the ER - Likely severe underlying depression currently not being followed by psychiatry or counseling being managed by primary care physician common a likely aggravating factors are boyfriend is an alcoholic as well as her worrying about her health - Continue sitter at bedside/psych eval - Will consult N - Medically cleared to be transferred to U # generalized pain/headache/fibromyalgia - at present patient asymptomatic - Ultram PRN - restart gabapentin # GERD - Will resume PPI # Depression - Resume paxil DVT ppx: Lovenox Dispo: To be evaluated by [facility] and
[2020-08-05] MEDS: PARoxetine HCL 40 MG TABLET PO (10:37)
[2020-08-05] MEDS: Enoxaparin Sodium 40 MG/0.4 ML SYRINGE SUBCUT (22:25)
[2020-08-05] MEDS: Gabapentin 300 MG CAPSULE PO (22:25)
[2020-08-06] MEDS: 0.9 % Sodium Chloride Flush 3 ML SYRINGE IVFLUSH ×4 (00:49→22:23)
[2020-08-06 04:00] VITALS: PULSE 79; RESP 16; TEMP 36.1; O2SAT 98
[2020-08-06] MEDS: Omeprazole 20 MG CAPSULE.DR PO (06:44)
[2020-08-06 07:36] LABS: Anion Gap 13 (12-20); Blood Urea Nitrogen 11 mg/dL (9-16); Calcium 8.9 mg/dL (8.4-10.2); Carbon Dioxide 25 mmol/L (22-29); Chloride 108 mmol/L (96-108); Creatinine Clr Calc Pharmacy 81.3; Estimated Glomerular Filt Rate > 60; Glucose Random 87 mg/dL (60-115); Potassium 3.9 mmol/L (3.3-5.1); Sodium 142 mmol/L (135-145)
[2020-08-06 07:52] VITALS: BP 97/56; PULSE 73; RESP 16; TEMP 35.8; O2SAT 98
[2020-08-06] MEDS: PARoxetine HCL 40 MG TABLET PO (09:43)
[2020-08-06] MEDS: Gabapentin 300 MG CAPSULE PO ×2 (09:43→22:19)
[2020-08-06] MEDS: traMADoL HCL 50 MG TABLET 25 MG PO ×2 (09:53→22:40)
[2020-08-06 11:10] VITALS: BP 119/79; PULSE 83; RESP 18; TEMP 36; O2SAT 98
[2020-08-06 15:37] VITALS: BP 135/83; PULSE 71; RESP 20; TEMP 36.9; O2SAT 99
--- NOTE | 2020-08-06 15:44 | HO.PM.IMPN ---
Subjective Subjective Date of Service: 08/06/20 Interval History: Patient is standing and adding sugar to her coffee , offers no acute complaints, provide history of few normal days followed by extreme exhaustion after doing regular house chores, feels her current medication gabapentin is not helping her with pain. ROS General no headache, no dizziness, no fever chills. CVS no chest pain, no palpitation. Respiratory no cough, no sputum production, no respiratory distress. Gastrointestinal no nausea, no vomiting, no abdominal pain Physical Exam Vital Signs: Vital Signs: Last Vital Signs Temp 98.5 F 08/06/20 15:37 Pulse 71 08/06/20 15:37 Resp 20 08/06/20 15:37 BP 135/83 08/06/20 15:37 Pulse Ox 99 08/06/20 15:37 Body Mass Index 35.0 General no acute distress. Neck supple, no JVD. CVS regular rate rhythm, Respiratory lungs clear to auscultation, no respiratory distress, no wheeze, no rhonchi. Gastrointestinal abdomen soft, nontender, bowel sounds audible, no guarding , no rigidity. Extremities no clubbing cyanosis or edema. Neuro nonfocal , speech clear. Psych appropriate affect Skin no rash Objective Data Current Medications Generic Name Dose Route Start Last Admin Trade Name Freq PRN Reason Stop Dose Admin Acetaminophen 650 mg 08/03/20 22:53 08/04/20 17:41 Acetaminophen 325 Mg Tablet PO 650 mg Q6H PRN Administration Pain, Mild (Pain Scale 1-3) Enoxaparin Sodium 40 mg 08/03/20 23:00 08/05/20 22:25 Enoxaparin Sodium 40 Mg/0.4 Ml Syringe SUBCUT 40 mg Q24H DA Administration Gabapentin 300 mg 08/05/20 21:00 08/06/20 09:43 Gabapentin 300 Mg Capsule PO 300 mg BID DA Administration Omeprazole 20 mg 08/05/20 06:30 08/06/20 06:44 Omeprazole 20 Mg Capsule.Dr PO 20 mg DAILY@0630 DA Administration Paroxetine HCl 40 mg 08/05/20 09:45 08/06/20 09:43 Paroxetine Hcl 40 Mg Tablet PO 40 mg DAILY DA Administration Sodium Chloride 3 ml 08/04/20 00:00 08/06/20 09:43 0.9 % Sodium Chloride Flush 3 Ml Syringe IVFLUSH 3 ml QSHIFT DA Administration Tramadol HCl 25 mg 08/04/20 12:25 08/06/20 09:53 Tramadol Hcl 50 Mg Tablet PO 25 mg Q6H PRN Administration Pain, Severe (Pain Scale 7-10) Labs CBC & Chem 7: 08/04/20 04:22 08/06/20 05:48 Assessment and Plan (1) Suicide attempt by multiple drug overdose: Status: Acute (2) Intentional overdose of selective serotonin reuptake inhibitor (SSRI): Status: Acute (3) Depression: Status: Acute (4) Gastroesophageal reflux disease: Status: Acute (5) Fibromyalgia: Status: Acute Assessment and Plan: 55-year-old female with past medical history of GERD, depression, presents to the hospital after a suicide attempt by ingesting multiple medications. Quantity unknown. # suicide attempt by drug overdose - Patient took Paxil, tizanidine and gabapentin unknown quantity of pills, no evidence of serotonin toxicity, no tachycardia, no tremors no hyper-reflexia - Labs showed normal CPK ,initially low bicarb that normalized, currently hemodynamically stable, patient treated with charcoal and IV fluid in the ER - Likely severe underlying depression currently not being followed by psychiatry or counseling being managed by primary care physician ,likely aggravating factors are boyfriend is an alcoholic and She recently came to know about elevated TESS with speckled pattern concerned about lupus - Continue sitter at bedside, patient seen by N and they are doing bed search. # generalized pain/headache/fibromyalgia - at present patient asymptomatic, continue Ultram PRN and continue gabapentin # GERD - PPI # Depression - on paxil DVT ppx: Lovenox
--- NOTE | 2020-08-06 18:46 | PC.NURSE ---
Called [facility] re: inpatient psych placement; notified that [facility] has no beds today and that multiple referrals have been placed. Notified case management.
[2020-08-06 19:13] VITALS: BP 116/78; PULSE 82; RESP 16; TEMP 36.1; O2SAT 98
[2020-08-06] MEDS: Enoxaparin Sodium 40 MG/0.4 ML SYRINGE SUBCUT (22:19)
[2020-08-06 22:32] VITALS: BMI 32.8
[2020-08-06 23:14] VITALS: BP 114/69; PULSE 77; RESP 18; TEMP 35.9; O2SAT 98
[2020-08-07 03:38] VITALS: RESP 16
[2020-08-07] MEDS: Omeprazole 20 MG CAPSULE.DR PO (06:23)
[2020-08-07 07:18] VITALS: BP 103/56; PULSE 74; RESP 16; TEMP 36.4; O2SAT 97
[2020-08-07 07:46] LABS: Amitriptyline, Urine NEGATIVE ng/mL (<100); Nortriptyline, Urine NEGATIVE ng/mL (<100)
[2020-08-07] MEDS: PARoxetine HCL 40 MG TABLET PO (09:27)
[2020-08-07] MEDS: Gabapentin 300 MG CAPSULE PO ×2 (09:27→21:18)
[2020-08-07] MEDS: 0.9 % Sodium Chloride Flush 3 ML SYRINGE IVFLUSH ×3 (09:28→21:18)
[2020-08-07 11:35] VITALS: BP 133/78; PULSE 78; RESP 18; TEMP 36.6; O2SAT 98
[2020-08-07] MEDS: traMADoL HCL 50 MG TABLET 25 MG PO ×2 (12:31→22:53)
--- NOTE | 2020-08-07 13:50 | MHC.CM.PN ---
Per [facility] patient does need psych inpatient bed, [facility] does not have an open bed and multiple referrals have been placed. Discharge plan is inpatient psych. Patient will need BLS transport. CM will continue to follow patient for discharge needs.
--- NOTE | 2020-08-07 15:50 | P.PNIM_ITS ---
Subjective Subjective Date of Service: 08/07/20 Interval History: Patient ambulating in hallways, feels better but remains depressed and asking for more help for her depression, no acute pain today. ROS General no headache, no dizziness, no fever chills. CVS no chest pain, no palpitation. Respiratory no cough, no sputum production, no respiratory distress. Gastrointestinal no nausea, no vomiting, no abdominal pain Physical Exam Vital Signs: Vital Signs: Last Vital Signs Temp 97.8 F 08/07/20 11:35 Pulse 78 08/07/20 11:35 Resp 18 08/07/20 11:35 BP 133/78 08/07/20 11:35 Pulse Ox 98 08/07/20 11:35 Body Mass Index 32.8 General no acute distress. Neck supple, no JVD. CVS regular rate rhythm, Respiratory lungs clear to auscultation, no respiratory distress, no wheeze, no rhonchi. Gastrointestinal abdomen soft, nontender, bowel sounds audible, no guarding , no rigidity. Extremities no clubbing cyanosis or edema. Neuro nonfocal , speech clear. Psych appropriate affect Skin no rash Objective Data Current Medications Generic Name Dose Route Start Last Admin Trade Name Freq PRN Reason Stop Dose Admin Acetaminophen 650 mg 08/03/20 22:53 08/04/20 17:41 Acetaminophen 325 Mg Tablet PO 650 mg Q6H PRN Administration Pain, Mild (Pain Scale 1-3) Enoxaparin Sodium 40 mg 08/03/20 23:00 08/06/20 22:19 Enoxaparin Sodium 40 Mg/0.4 Ml Syringe SUBCUT 40 mg Q24H DA Administration Gabapentin 300 mg 08/05/20 21:00 08/07/20 09:27 Gabapentin 300 Mg Capsule PO 300 mg BID DA Administration Omeprazole 20 mg 08/05/20 06:30 08/07/20 06:23 Omeprazole 20 Mg Capsule.Dr PO 20 mg DAILY@0630 DA Administration Paroxetine HCl 40 mg 08/05/20 09:45 08/07/20 09:27 Paroxetine Hcl 40 Mg Tablet PO 40 mg DAILY DA Administration Sodium Chloride 3 ml 08/04/20 00:00 08/07/20 14:37 0.9 % Sodium Chloride Flush 3 Ml Syringe IVFLUSH 3 ml QSHIFT DA Administration Tramadol HCl 25 mg 08/04/20 12:25 08/07/20 12:31 Tramadol Hcl 50 Mg Tablet PO 25 mg Q6H PRN Administration Pain, Severe (Pain Scale 7-10) Labs CBC & Chem 7: 08/04/20 04:22 08/06/20 05:48 Assessment and Plan (1) Suicide attempt by multiple drug overdose: Status: Acute (2) Intentional overdose of selective serotonin reuptake inhibitor (SSRI): Status: Acute (3) Depression: Status: Acute (4) Gastroesophageal reflux disease: Status: Acute (5) Muscle strain: Status: Acute (6) Fibromyalgia: Status: Acute Assessment and Plan: 55-year-old female with past medical history of GERD, depression, presents to the hospital after a suicide attempt by ingesting multiple medications. Quantity unknown. # suicide attempt by drug overdose - Patient took Paxil, tizanidine and gabapentin unknown quantity of pills, no evidence of serotonin toxicity, no tachycardia, no tremors no hyper-reflexia - Labs showed normal CPK ,initially low bicarb that normalized, currently hemodynamically stable, patient treated with charcoal and IV fluid in the ER - Likely severe underlying depression currently not being followed by [facility] hiatry or counseling being managed by primary care physician ,likely aggravating factors are boyfriend is an alcoholic and She recently came to know about elevated TESS with speckled pattern concerned about lupus and has not seen a specialist. Continue sitter at bedside, patient seen by N , spoke with [facility] provider they are doing bed search, patient is still meet inpatient criteria due to persistent depression. # generalized pain/headache/fibromyalgia - at present patient asymptomatic, continue Ultram PRN and continue gabapentin # GERD - PPI # Depression on paxil DVT ppx: Lovenox
[2020-08-07 16:00] VITALS: BP 111/74; PULSE 95; RESP 18; TEMP 36; O2SAT 98
[2020-08-07 20:00] VITALS: BP 92/71; PULSE 82; RESP 18; TEMP 36.2; O2SAT 97
[2020-08-07] MEDS: Enoxaparin Sodium 40 MG/0.4 ML SYRINGE SUBCUT (22:53)
[2020-08-08] VITALS: BP 107/67; PULSE 78; RESP 16; TEMP 35.9; O2SAT 97
[2020-08-08 04:00] VITALS: BP 130/73; PULSE 65; RESP 18; TEMP 36.4; O2SAT 97
[2020-08-08] MEDS: Omeprazole 20 MG CAPSULE.DR PO (05:47)
[2020-08-08 08:00] VITALS: BP 97/60; PULSE 71; RESP 17; TEMP 36.3; O2SAT 96
[2020-08-08] MEDS: traMADoL HCL 50 MG TABLET 25 MG PO (09:12)
[2020-08-08] MEDS: PARoxetine HCL 40 MG TABLET PO (09:13)
[2020-08-08] MEDS: Gabapentin 300 MG CAPSULE PO (09:13)
[2020-08-08] MEDS: 0.9 % Sodium Chloride Flush 3 ML SYRINGE IVFLUSH (09:14)
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
--- NOTE | 2020-08-08 11:35 | MHC.CM.PN ---
Patient will be discharged to today for inpatient psych bed. Patient, nurse and MD are aware.
--- NOTE | 2020-08-08 11:36 | P.DS_ITS ---
DS: Providers Provider Date of Service: 08/08/20 Date of admission: 08/03/20 20:12 Primary care physician: Nathaniel Eckert MD Consults: 08/04/20 04:13 Consult to Psychiatry Routine Consulting Provider: Vance Sanderson Reason for consultation: suicide attempt Has provider been notified: No 08/05/20 09:40 Consult to Crisis Stat Reason for consultation: suicidal attempt, medically cleared Has provider been notified: No DS: Diagnosis Discharge Diagnosis (1) Suicide attempt by multiple drug overdose: Status: Acute (2) Intentional overdose of selective serotonin reuptake inhibitor (SSRI): Status: Acute (3) Depression: Status: Acute (4) Gastroesophageal reflux disease: Status: Acute (5) Muscle strain: Status: Acute (6) Fibromyalgia: Status: Acute DS: Medications Discharge Medications Home Medications: Home Medications Medication Instructions Recorded Confirmed blood sugar diagnostic #10 ea 02/23/20 02/23/20 omeprazole 1 cap PO DAILY PRN 08/03/20 08/03/20 Previous Rx's Medication Instructions Recorded atorvastatin 20 mg tablet 20 mg PO DAILY #90 tab 05/01/20 cholecalciferol (vitamin D3) 50 50 mcg PO DAILY #90 cap 05/01/20 mcg (2,000 unit) capsule paroxetine HCl 40 mg tablet 40 mg PO QAM #90 tab 05/01/20 tizanidine 4 mg tablet 4 mg PO BEDTIME #90 tab 05/01/20 gabapentin 300 mg capsule 300 mg PO BID #60 cap 07/09/20 DS: Summary Hospital Course Hospital Course: Chief Complaint: overdose Medical history of GERD, depression, fibromyalgia, who presents to the hospital after was suicide attempt. Patient is somnolent but arousable. She is answering questions appropriately. She reports that she took various medications including Paxil, gabapentin, and tizanidine because she wanted to stop the pain. She says that she has pain all over she just wants this pain to stop and therefore she tried to end her life. She is still suicidal, no homicidal. At this time she denies any abdominal pain, chest pain, shortness of breath, headache, change in vision, no nausea vomiting, no abdominal pain, no diarrhea or constipation, no urinary symptoms and no lower extremity edema. On arrival to the ED hemodynamically stable with no abnormal vitals Labs are significant for WBC count of 7.5, hemoglobin of 11.6, PT of 13.2, INR of 1.1, sodium 137, potassium 4.2, labs otherwise unremarkable, UDS negative, amitriptyline level pending, Tylenol level not detected, salicylate level negative Past Medical history of GERD, depression, fibromyalgia, Hospital course Chief Complaint: overdose 55 yr old female presented to the hospital after suicide attempt. Patient was somnolent but arousable on arrival but was answering questions appropriately. She reports that she took various medications including Paxil, gabapentin, because she wanted to stop the pain. She says that she has pain all over she just wants this pain to stop and therefore she tried to end her life. # suicide attempt by drug overdose - Patient took Paxil, tizanidine and gabapentin unknown quantity of pills, no evidence of serotonin toxicity noted, no tachycardia, no tremors, no hyper- reflexia - Labs showed normal CPK ,initially low bicarb that normalized, currently hemodynamically stable, patient treated with charcoal and IV fluid in the ER - Likely has severe underlying depression currently not being followed by psychiatry or counseling, being managed by primary care physician ,likely aggravating factors are boyfriend is an alcoholic and She recently came to know about elevated TESS with speckled pattern concerned about lupus and has not seen a specialist. Patient is now being transferred to , is spoke with admitting psychiatrist and updated him about patient's current condition. # generalized pain/headache/fibromyalgia continue Ultram PRN and continue gabapentin # GERD no acute issues continue PPI, will stop Motrin # Depression continue Paxil Time Spent with Patient Time attestation: Total time spent providing and/or coordinating discharge services: Discharge coordination time: Greater than 30 minutes Physical Exam Vital Signs: Vital Signs: Last Vital Signs Temp 97.4 F 08/08/20 08:00 Pulse 71 08/08/20 08:00 Resp 17 08/08/20 08:00 BP 97/60 08/08/20 08:00 Pulse Ox 96 08/08/20 08:00 Body Mass Index 32.8 General no acute distress. Neck supple, no JVD. CVS regular rate rhythm, Respiratory lungs clear to auscultation, no respiratory distress, no wheeze, no rhonchi. Gastrointestinal abdomen soft, nontender, bowel sounds audible, no guarding , no rigidity. Extremities no clubbing cyanosis or edema. Neuro nonfocal , speech clear. Psych appropriate affect Skin no rash Discharge Plan Discharge Patient Disposition: Xfer Psychiatric Hosp Referrals: Nathaniel Eckert MD [Primary Care Provider] - Discharge Medications: Continued tizanidine 4 mg tablet 4 mg PO BEDTIME Qty: 90 RF: 2 paroxetine HCl 40 mg tablet 40 mg PO QAM Qty: 90 RF: 2 atorvastatin 20 mg tablet 20 mg PO DAILY Qty: 90 RF: 2 cholecalciferol (vitamin D3) 50 mcg (2,000 unit) capsule 50 mcg PO DAILY Qty: 90 RF: 2 gabapentin 300 mg capsule 300 mg PO BID Qty: 60 RF: 2 omeprazole 20 mg capsule,delayed release(DR/EC) 1 cap PO DAILY PRN (Reason: Acid Reflux) RF: 0 Discontinued ibuprofen [IBU] 600 mg tablet 600 mg PO Q8H PRN (Reason: pain) 30 Days Qty: 90 RF: 1 No Action (DME) FreeStyle Lite Strips Strip See Rx Instructions strip Not Applicable BID Qty: 10 RF: 0 Discharge Orders: Discharge Order (Routine); Ordered 08/08/20 Ordered By: Lopez Geller Diet: low fat, low cholesterol Activity on Discharge: As tolerated Stand Alone Forms: Patient Portal Discharge page Care Plan Goals: Patient to be transferred to [address] Concerns: Suicidal ideation/depression/generalized pain Plan of Treatment: Outpatient follow-up with PCP and Psychiatry
[2020-08-08 12:00] VITALS: BP 104/64; PULSE 78; RESP 16; TEMP 36.2; O2SAT 96
[2020-08-08 15:02] VITALS: BP 122/76; PULSE 81; RESP 18; TEMP 36.2; O2SAT 97
[2020-08-08 15:30] VITALS: BP 122/70; PULSE 81; RESP 18; TEMP 36.2; O2SAT 97
== END 2020-08-08 15:30 | DRG 812 ==
LOC: HO.ED 17:30 → HO.EDOVER 20:33 → HO.IMC 21:01
PROVIDERS: Nurse Practitioner Primary Care; Admitting Provider Internal Medicine; Emergency Provider Internal Medicine; PCP Family Medicine; Visit Provider Hospitalist
DX: T43.222A Poisoning by selective serotonin reuptake inhibitors, intentional self-harm, initial encounter (principal); R45.851 Suicidal ideations; F32.9 Major depressive disorder, single episode, unspecified; T42.6X2A Poisoning by other antiepileptic and sedative-hypnotic drugs, intentional self-harm, initial encounter; M79.7 Fibromyalgia; Y92.9 Unspecified place or not applicable; K21.9 Gastro-esophageal reflux disease without esophagitis; Z59.0 Homelessness; Z91.5 Personal history of self-harm; Z20.822 Contact with and (suspected) exposure to COVID-19; Z79.899 Other long term (current) drug therapy
CPT/HCPCS: 36415; 71045; 80048; 80053; 80143; 80179; 80307; 80320; 80335; 81001; 82550; 83605; 83735; 85025; 85610; 85730; 87635; 93005; 96360; 99222; 99285; 99291; C1758; J1650

== ENCOUNTER 2020-08-08 15:49 | Inpatient (IN) | payer OTHER, SELFPAY ==
[2020-08-08 18:00] VITALS: BP 122/66; PULSE 76; TEMP 36.6
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
[2020-08-08] MEDS: TiZANidine HCL 4 MG TABLET PO (21:37)
[2020-08-08] MEDS: traMADoL HCL 50 MG TABLET 25 MG PO (21:37)
[2020-08-08] MEDS: Gabapentin 300 MG CAPSULE PO (21:37)
[2020-08-09 06:39] VITALS: BP 105/68; PULSE 78; RESP 18; TEMP 36.8; O2SAT 98
[2020-08-09] MEDS: Cholecalciferol (Vitamin D3) 25 MCG TABLET 50 MCG PO (08:14)
[2020-08-09] MEDS: Atorvastatin Calcium 20 MG TABLET PO (08:14)
[2020-08-09] MEDS: PARoxetine HCL 40 MG TABLET PO (08:14)
[2020-08-09] MEDS: Gabapentin 300 MG CAPSULE PO ×2 (08:14→21:38)
--- NOTE | 2020-08-09 10:05 | HO.PSYCHPN ---
Subjective Subjective Date of Service: 08/09/20 Reason For Visit: depressive disorder Subjective Notes: Conditional Voluntary Interim History: The patient reported depressive symptoms, but she is able to contract for safety even though that she has sporadic suicidal thoughts. Since she has been on Paxil for several years and she has Fibromyalgia, she agreed to change Paxil to Cymbalta. Medication Compliance: Yes Side effects from medications: No Attending Groups: Intermittent Review of Systems Review of Systems Yes all other systems are reviewed and are negative Mental Status Exam Mental Status Exam Patient Appearance: Appropriate (On hospital gowns) Patient Orientation: Person, Place, Time and Situation Level of Consciousness: Awake and Appropriate Patient Behavior: Cooperative Mood Description: Calm and Withdrawn Affect Description: Withdrawn and Constricted Patient Cognition Impaired: No Ability to Follow Directions: Good Speech Pattern: Clear Memory Description: Intact Hallucinations: None Delusions: Not Present Thought Process: Goal Oriented Thought Content: positive for Circumstantial Depressive Symptoms: Difficulty Sleeping and Feelings of Worthlessness Judgement: Fair Diagnostics Vital Signs (24Hr): Vital Signs - 24 hr 08/08/20 18:00 08/09/20 06:39 Temperature 97.8 F 98.3 F Pulse Rate 76 78 Respiratory Rate 18 Blood Pressure 122/66 105/68 Pulse Oximetry 98 Medications Medications Current Medications Generic Name Dose Route Start Last Admin Trade Name Freq PRN Reason Stop Dose Admin Acetaminophen 650 mg 08/08/20 16:15 Acetaminophen 325 Mg Tablet PO Q6H PRN Pain, Mild (Pain Scale 1-3) Al Hydroxide/Mg Hydroxide 30 ml 08/08/20 16:16 Magnesium Hydrox/Alum Hydrox 30 Ml Oral.Susp PO Q6H PRN Heartburn/Nausea Atorvastatin Calcium 20 mg 08/09/20 09:00 08/09/20 08:14 Atorvastatin Calcium 20 Mg Tablet PO 20 mg DAILY DA Administration Duloxetine HCl 30 mg 08/09/20 21:00 Duloxetine Hcl 30 Mg Capsule. PO BID DA Gabapentin 300 mg 08/08/20 21:00 08/09/20 08:14 Gabapentin 300 Mg Capsule PO 300 mg BID DA Administration Hydroxyzine HCl 25 mg 08/08/20 16:16 Hydroxyzine Hcl 25 Mg Tablet PO BEDTIME PRN Anxiety Magnesium Hydroxide 30 ml 08/08/20 16:16 Milk Of Magnesia 30 Ml Oral.Susp PO DAILY PRN Constipation Omeprazole 20 mg 08/08/20 16:15 Omeprazole 20 Mg Capsule.Dr PO DAILY PRN Acid Reflux Tizanidine HCl 4 mg 08/08/20 21:00 08/08/20 21:37 Tizanidine Hcl 4 Mg Tablet PO 4 mg BEDTIME DA Administration Tramadol HCl 25 mg 08/08/20 16:15 08/08/20 21:37 Tramadol Hcl 50 Mg Tablet PO 25 mg Q6H PRN Administration Pain, Severe (Pain Scale 7-10) Trazodone HCl 50 mg 08/08/20 16:16 Trazodone Hcl 50 Mg Tablet PO BEDTIME PRN Insomnia Vitamin D 50 mcg 08/09/20 09:00 08/09/20 08:14 Cholecalciferol (Vitamin D3) 25 Mcg Tablet PO 50 mcg DAILY DA Administration Allergies Allergies Allergy/AdvReac Type Severity Reaction Status Date / Time Latex, Natural Rubber Allergy Intermediate RASH, HIVES Verified 02/23/20 15:06 [LATEX, NATURAL RUBBER] buspirone AdvReac Unknown chest Verified 02/23/20 15:06 heaviness, increased anxiety Pt states no known allergy to Allergy Unknown none Uncoded 02/23/20 15:06 Mirtazapine AdvReac Unknown extreme Uncoded 02/23/20 15:06 somnolence Assessment & Plan Assessment & Plan (1) Depression: Qualifiers: Active/Remission status: currently active Depression Type: major depressive disorder Major depression episode severity: severe Major depression recurrence: recurrent Psychotic features: without psychotic features Qualified Code(s): F33.2 - Major depressive disorder, recurrent severe without psychotic features Status: Acute Code(s): F32.9 - Major depressive disorder, single episode, unspecified Assessment and Plan: 1. D/C Paxil. 2. Start Cymbalta 30 mg po bid, first dose at hs today. 3. Get more collateral. 4. Coordinated with case managing for follow-up Greater than 50% of the session was spent on counseling and/or coordination of care Reason for contiued inpatient stay Substantial Risk for: harm to self
[2020-08-09] MEDS: traMADoL HCL 50 MG TABLET 25 MG PO (13:00)
[2020-08-09 16:43] VITALS: BP 103/60; PULSE 81; RESP 16; TEMP 36.5; O2SAT 98
[2020-08-09] MEDS: DULoxetine HCl 30 MG CAPSULE.DR PO (21:38)
[2020-08-09] MEDS: TiZANidine HCL 4 MG TABLET PO (21:38)
[2020-08-09] MEDS: Milk of Magnesia 30 ML ORAL.SUSP PO (21:42)
[2020-08-10 06:23] VITALS: BP 104/61; PULSE 71; RESP 18; TEMP 37.1; O2SAT 98
[2020-08-10] MEDS: Atorvastatin Calcium 20 MG TABLET PO (08:57)
[2020-08-10] MEDS: Gabapentin 300 MG CAPSULE PO ×2 (08:57→20:22)
[2020-08-10] MEDS: Cholecalciferol (Vitamin D3) 25 MCG TABLET 50 MCG PO (08:57)
[2020-08-10] MEDS: DULoxetine HCl 30 MG CAPSULE.DR 60 MG PO ×2 (08:58→20:22)
--- NOTE | 2020-08-10 10:06 | HO.PSYCHPN ---
Subjective Subjective Date of Service: 08/10/20 Reason For Visit: depressive disorder Subjective Notes: Conditional Voluntary Interim History: The patient denied new side effects with Cymbalta, she agreed to continue titration of Cymbalta up to 60 mg po bid. She denies safety concerns at this moment. She has not attended groups yet. Medication Compliance: Yes Side effects from medications: No Attending Groups: No Review of Systems Review of Systems Yes all other systems are reviewed and are negative Mental Status Exam Mental Status Exam Patient Appearance: Well Grooomed Patient Orientation: Person, Place, Time and Situation Level of Consciousness: Awake and Appropriate Patient Behavior: Appropriate Mood Description: Calm Affect Description: Withdrawn Patient Cognition Impaired: No Ability to Follow Directions: Good Speech Pattern: Clear Memory Description: Intact Hallucinations: None Delusions: Not Present Thought Process: Goal Oriented Thought Content: positive for Logical Judgement: Fair Judgement and Insight: Insight: improved Diagnostics Vital Signs (24Hr): Vital Signs - 24 hr 08/09/20 16:43 08/10/20 06:23 Temperature 97.7 F 98.8 F Pulse Rate 81 71 Respiratory Rate 16 18 Blood Pressure 103/60 104/61 Pulse Oximetry 98 98 Medications Medications Current Medications Generic Name Dose Route Start Last Admin Trade Name Freq PRN Reason Stop Dose Admin Acetaminophen 650 mg 08/08/20 16:15 Acetaminophen 325 Mg Tablet PO Q6H PRN Pain, Mild (Pain Scale 1-3) Al Hydroxide/Mg Hydroxide 30 ml 08/08/20 16:16 Magnesium Hydrox/Alum Hydrox 30 Ml Oral.Susp PO Q6H PRN Heartburn/Nausea Atorvastatin Calcium 20 mg 08/09/20 09:00 08/10/20 08:57 Atorvastatin Calcium 20 Mg Tablet PO 20 mg DAILY DA Administration Duloxetine HCl 60 mg 08/10/20 08:24 08/10/20 08:58 Duloxetine Hcl 30 Mg Capsule.Dr PO 60 mg BID DA Administration Gabapentin 300 mg 08/08/20 21:00 08/10/20 08:57 Gabapentin 300 Mg Capsule PO 300 mg BID DA Administration Hydroxyzine HCl 25 mg 08/08/20 16:16 Hydroxyzine Hcl 25 Mg Tablet PO BEDTIME PRN Anxiety Magnesium Hydroxide 30 ml 08/08/20 16:16 08/09/20 21:42 Milk Of Magnesia 30 Ml Oral.Susp PO 30 ml DAILY PRN Administration Constipation Omeprazole 20 mg 08/08/20 16:15 Omeprazole 20 Mg Capsule.Dr PO DAILY PRN Acid Reflux Tizanidine HCl 4 mg 08/08/20 21:00 08/09/20 21:38 Tizanidine Hcl 4 Mg Tablet PO 4 mg BEDTIME DA Administration Tramadol HCl 25 mg 08/08/20 16:15 08/09/20 13:00 Tramadol Hcl 50 Mg Tablet PO 25 mg Q6H PRN Administration Pain, Severe (Pain Scale 7-10) Trazodone HCl 50 mg 08/08/20 16:16 Trazodone Hcl 50 Mg Tablet PO BEDTIME PRN Insomnia Vitamin D 50 mcg 08/09/20 09:00 08/10/20 08:57 Cholecalciferol (Vitamin D3) 25 Mcg Tablet PO 50 mcg DAILY DA Administration Allergies Allergies Allergy/AdvReac Type Severity Reaction Status Date / Time Latex, Natural Rubber Allergy Intermediate RASH, HIVES Verified 02/23/20 15:06 [LATEX, NATURAL RUBBER] buspirone AdvReac Unknown chest Verified 02/23/20 15:06 heaviness, increased anxiety Pt states no known allergy to Allergy Unknown none Uncoded 02/23/20 15:06 Mirtazapine AdvReac Unknown extreme Uncoded 02/23/20 15:06 somnolence Assessment & Plan Assessment & Plan (1) Depression: Qualifiers: Active/Remission status: currently active Depression Type: major depressive disorder Major depression episode severity: severe Major depression recurrence: recurrent Psychotic features: without psychotic features Qualified Code(s): F33.2 - Major depressive disorder, recurrent severe without psychotic features Status: Acute Code(s): F32.9 - Major depressive disorder, single episode, unspecified Assessment and Plan: 1. Continue titration of Cymbalta. 2. Rest the same. 3. Coordination of care for early discharge Greater than 50% of the session was spent on counseling and/or coordination of care Reason for contiued inpatient stay Substantial Risk for: inability to function
[2020-08-10 18:00] VITALS: BP 109/66; PULSE 82; TEMP 37.1
[2020-08-10] MEDS: TiZANidine HCL 4 MG TABLET PO (20:22)
[2020-08-11 06:00] VITALS: BP 99/61; PULSE 76; TEMP 36
[2020-08-11] MEDS: Gabapentin 300 MG CAPSULE PO (09:23)
[2020-08-11] MEDS: Atorvastatin Calcium 20 MG TABLET PO (09:24)
[2020-08-11] MEDS: Cholecalciferol (Vitamin D3) 25 MCG TABLET 50 MCG PO (09:24)
[2020-08-11] MEDS: DULoxetine HCl 30 MG CAPSULE.DR 60 MG PO (09:24)
--- NOTE | 2020-08-11 09:47 | PM.PSYDC ---
DS: Providers Provider Date of Service: 08/11/20 Date of admission: 08/08/20 15:49 Date of discharge: 08/11/20 Primary care physician: Nathaniel Eckert MD Admitting clinician: Edwin Almazan Attending physician on admission: Edwin Almazan Attending physician on discharge: Edwin Almazan DS: Diagnosis Discharge Diagnosis (1) Depression: Status: Acute Problem details: Major Depressive Disorder Recurrent Severe without psychosis. (2) Suicide attempt by multiple drug overdose: Status: Acute Problem details: Resolved, medically cleared after treated at Med/Surg DS: Medications Discharge Medications Home Medications: Home Medications Medication Instructions Recorded Confirmed blood sugar diagnostic #10 ea 02/23/20 02/23/20 omeprazole 1 cap PO DAILY PRN 08/03/20 08/03/20 Previous Rx's Medication Instructions Recorded atorvastatin 20 mg tablet 20 mg PO DAILY #90 tab 05/01/20 cholecalciferol (vitamin D3) 50 50 mcg PO DAILY #90 cap 05/01/20 mcg (2,000 unit) capsule paroxetine HCl 40 mg tablet 40 mg PO QAM #90 tab 05/01/20 tizanidine 4 mg tablet 4 mg PO BEDTIME #90 tab 05/01/20 gabapentin 300 mg capsule 300 mg PO BID #60 cap 07/09/20 Discharge Plan Discharge Patient Disposition: Home, Self-Care Referrals: [facility] [Other] - 09/05/20 12:00 pm ([facility]LE[facility]) [facility] [Other] - 10/03/20 4:40 pm (TELEHEALTH) ALEX OCHOA, THERAPIST [Other] - 08/12/20 11:00 am (TELEHEALTH) Nathaniel Eckert MD [Primary Care Provider] - 08/15/20 11:30 am (in office) Discharge Medications: New atorvastatin 20 mg Tablet 20 mg PO DAILY Qty: 14 RF: 0 tizanidine 4 mg Tablet 4 mg PO BEDTIME Qty: 14 RF: 0 gabapentin 300 mg Capsule 300 mg PO BID Qty: 28 RF: 0 omeprazole 20 mg Capsule,Delayed Release(Dr/Ec) 20 mg PO DAILY PRN (Reason: Acid Reflux) Qty: 14 RF: 0 duloxetine 30 mg Capsule,Delayed Release(Dr/Ec) 60 mg PO BID Qty: 28 RF: 1 cholecalciferol (vitamin D3) 25 mcg (1,000 unit) Tablet 50 mcg PO DAILY Qty: 14 RF: 0 Discontinued tizanidine 4 mg tablet 4 mg PO BEDTIME Qty: 90 RF: 2 paroxetine HCl 40 mg tablet 40 mg PO QAM Qty: 90 RF: 2 atorvastatin 20 mg tablet 20 mg PO DAILY Qty: 90 RF: 2 cholecalciferol (vitamin D3) 50 mcg (2,000 unit) capsule 50 mcg PO DAILY Qty: 90 RF: 2 gabapentin 300 mg capsule 300 mg PO BID Qty: 60 RF: 2 omeprazole 20 mg capsule,delayed release(DR/EC) 1 cap PO DAILY PRN (Reason: Acid Reflux) RF: 0 (DME) FreeStyle Lite Strips Strip See Rx Instructions strip Not Applicable BID Qty: 10 RF: 0 Discharge Orders: Discharge Order (Routine); Ordered 08/11/20 Ordered By: Edwin Almazan Diet: regular diet Activity on Discharge: As tolerated Stand Alone Forms: Patient Portal Discharge page Care Plan Goals: Continue with regular check ups with PCP. Health Concerns: None at this moment, continue with regular medication Plan of Treatment: 1. Aftercare with outpatient providers have been arranged. 2. Continue with Cymbalta 60 mg po bid. Mental Status Exam Mental Status Exam Patient Appearance: Well Grooomed Patient Orientation: Person, Place, Time and Situation Level of Consciousness: Awake and Appropriate Patient Behavior: Appropriate Mood Description: Constricted (less constricted since admission) Affect Description: Calm Patient Cognition Impaired: No Ability to Follow Directions: Good Speech Pattern: Clear Memory Description: Intact Hallucinations: None Delusions: Not Present Thought Process: Intact Thought Content: positive for Intact Judgement: Fair Judgement and Insight: Insight improved DS: Summary Hospital Course Hospital Course: The patient was transferred from MED/SURG after been medically cleared after an intentional overdose on several prescriptions in an impulsive suicidal attempt triggered by conflicts wtih her ex-partner who evicted her and she was technically homeless. She has a long history of depression and she was receiving Paxil from her PCP. On admission, we discussed different therapeutic alternatives since she has been taking Paxil for several years and she reported no change on her mood for several months at a dose of 40 mg/day. Since she has Fibromyalgia, we decided to change her Paxil to Cymbalta, titrated up to 60 mg po bid with no side effects. She attended groups, she was able to contract for safety and she was ready for discharge. Time spent discussing smoking cessation with patient: 3 to 10 minutes Status at Discharge Cognitive/behavioral status at discharge: Cognitive, she is intact and her behavior is at baseline Functional status at discharge: independent ambulation Overall status at discharge: patient is back to baseline Time Spent with Patient Time attestation: Total time spent providing and/or coordinating discharge services: Time spent: Less than 30 minutes
[2020-08-11] MEDS: traMADoL HCL 50 MG TABLET 25 MG PO (10:23)
== END 2020-08-11 18:13 | disposition home or self-care (01) | DRG 751 ==
PROVIDERS: Admitting Provider Psychiatry & Neurology Psychiatry; PCP Family Medicine; Visit Provider Psychiatry & Neurology Psychiatry
DX: F33.2 Major depressive disorder, recurrent severe without psychotic features (principal); R45.851 Suicidal ideations; K21.9 Gastro-esophageal reflux disease without esophagitis; M79.7 Fibromyalgia; Z79.899 Other long term (current) drug therapy
CPT/HCPCS: 99232; 99238

== ENCOUNTER 2020-11-22 11:01 | Outpatient (REF) | payer OTHER, SELFPAY ==
[2020-11-22 13:32] LABS: MANUAL DIFF FLAG NO
[2020-11-22 13:34] LABS: Basophils Percent Auto 0.5 % (0-2); Eosinophils Absolute Auto 0.1 X10*3/uL (0.0-0.4); Eosinophils Percent Auto 2.4 % (0-4); Hematocrit 40.5 % (37-47); Imm Gran Abs Auto 0.01 X10*3/uL (0.00-0.03); Imm Gran Pct Auto 0.2 % (0.0-0.4); Lymphocytes Absolute Auto 1.7 X10*3/uL (1.2-4.9); Lymphocytes Percent Auto 29.7 % (20-40); Mean Corpuscular HGB Conc 32.1 g/dl (31.0-35.0); Mean Corpuscular Hemoglobin 30.4 pg (27.0-33.0); Mean Corpuscular Volume 94.6 fL (80-98); Mean Platelet Volume 10.2 fL (9.4-12.3); Monocytes Absolute Auto 0.4 X10*3/uL (0.1-1.2); Neutrophils Absolute Auto 3.4 X10*3/uL (2.0-8.3); Neutrophils Percent Auto 60.2 % (45-73); Platelet Count 350 X10*3/uL (160-400); Red Blood Count 4.28 X10*6/uL (4.20-5.50); Red Cell Distribution Width 13.2 % (11.0-16.0); White Blood Count 5.7 X10*3/uL (4.8-10.8)
[2020-11-22 13:59] LABS: Alanine Aminotransferase 17 U/L (0-31); Albumin Level 4.3 g/dL (3.5-5.0); Alkaline Phosphatase 62 U/L (39-117); Anion Gap 13 (12-20); Aspartate Amino Transferase 18 U/L (5-31); Bilirubin Total 0.4 mg/dL (0.0-1.0); Blood Urea Nitrogen 9 mg/dL (9-16); Calcium 9.4 mg/dL (8.4-10.2); Carbon Dioxide 27 mmol/L (22-29); Chloride 105 mmol/L (96-108); Estimated Glomerular Filt Rate > 60; Glucose Random 99 mg/dL (60-115); Iron 51 mcg/dL (30-160); Percent Iron Saturation 13 % (15-50); Potassium 4.3 mmol/L (3.3-5.1); Sodium 141 mmol/L (135-145); Total Iron Binding Capacity 378 mcg/dL (228-428); Total Protein 7.1 g/dL (6.5-8.0); Unsaturated Iron Binding 327 ug/dL
[2020-11-22 14:21] LABS: Ferritin 10 ng/mL (10-250)
== END 2020-11-22 11:02 | disposition home or self-care (01) ==
LOC: HO.WFDLDS 11:01
PROVIDERS: Visit Provider Family Medicine
DX: Z00.00 Encounter for general adult medical examination without abnormal findings (principal); R25.2 Cramp and spasm
CPT/HCPCS: 36415; 80053; 82728; 83540; 83735; 85025

== ENCOUNTER 2020-11-27 11:00 | Outpatient (RCR) | payer OTHER, SELFPAY ==
[2020-11-27 11:06] VITALS: BP 130/78; PULSE 68; O2SAT 97
== END 2021-03-23 14:43 | disposition home or self-care (01) ==
LOC: HO.PTWFD 11:00
PROVIDERS: Visit Provider Family Medicine
DX: R42 Dizziness and giddiness (principal)
CPT/HCPCS: 95992; 97161; 97535

== ENCOUNTER 2020-12-28 11:18 | Outpatient (REF) | payer OTHER, SELFPAY ==
[2020-12-28 14:56] LABS: Erythrocyte Sedimentation Rate 9 MM/HR (0-20)
[2020-12-29 11:30] LABS: CRP High Sensitivity 1.1 mg/L
== END 2020-12-28 11:19 | disposition home or self-care (01) ==
LOC: HO.WFDLDS 11:18
PROVIDERS: Visit Provider Family Medicine
DX: M79.641 Pain in right hand (principal)
CPT/HCPCS: 36415; 85652; 86141

== ENCOUNTER 2020-12-28 11:43 | Outpatient (REF) | payer OTHER, SELFPAY ==
--- NOTE | ~2020-12-28 | XR_ITS ---
EXAMINATION: XR HAND, RIGHT CLINICAL INFORMATION: Pain. COMPARISON: July 26, 2016 TECHNIQUE: PA, lateral, and oblique views of the right hand. FINDINGS: There is no evidence of acute fracture or dislocation of the right hand. Right hand joint spaces are maintained. There is a stable region of diminished density about the medial aspect 2nd distal tuft. There is a stable 2 mm bony density base of the 2nd distal phalanx, likely related to previous injury. A 1 mm bony density seen base of the 1st distal phalanx, likely sequela of previous injury. XR/XR hand RT min 3V IMPRESSION: No acute bony abnormality of the right hand identified.
== END 2020-12-28 11:44 | disposition home or self-care (01) ==
LOC: HO.HMGCX 11:43
PROVIDERS: PCP Family Medicine; Visit Provider Family Medicine
DX: M79.641 Pain in right hand (principal)
CPT/HCPCS: 73130

== ENCOUNTER → 2021-01-09 10:08 | Outpatient (BNVA) | payer OTHER, SELFPAY | PROVIDERS: PCP Family Medicine; Visit Provider Nurse Practitioner Family | DX: M79.7 Fibromyalgia (principal); T50.912A Poisoning by multiple unspecified drugs, medicaments and biological substances, intentional self-harm, initial encounter | CPT/HCPCS: 99202 ==

== ENCOUNTER 2021-02-15 11:00 | Outpatient (RCR) | payer OTHER, SELFPAY ==
--- NOTE | 2021-02-06 13:29 | MHC.OT.OEV ---
[address] [phone] F: [phone] Occupational Therapy Evaluation Diagnosis: PAIN IN RIGHT FOREARM Date of Onset: 12/24/20 Date of Surgery: Attending Provider: Nathaniel Eckert Prescribed Treatment: ELISA AND EMMETT BROWN Follow Up Appointment: 03/08/21 History of Current Condition: REPORTS PAIN IN RIGHT ELBOW SINCE FALL IN MID-DECEMBER OF 2020. REPORTS HAS GENERAL PAIN DUE TO HX OF LUPUS, YET STATES PAIN HAS INCREASED SINCE FALL. SHE EXPERIENCES NUMBNESS AND TINGLING THROUGH HER SMALL FINGER AND RING FINGER. ADDITIONALLY, SHE BELIEVES SHE FELL ON HER RIGHT THUMB AND REPORTS GRADUAL IMPROVEMENTS IN SYMPTOMS. XRAY IN R HAND 12/28/20 NEGATIVE Significant Medical History: CHRONIC PAIN, FIBROMYALGIA, LUPUS Precautions/Contraindications: UNIVERSAL, CHRONIC PAIN Patient Goals: TO REDUCE TINGLING AND PAIN Hand Dominance: Right Observations: PURSE NOT UTILIZED, GRIPPING WALLET AND KEYS IN LEFT HAND QuickDASH Score: 70% Prior Level of Function and Occupation Self Care, Employment, Leisure: UNEMPLOYED. 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 UNABLE TO OPEN TIGHT JAR OR DO HOUSEHOLD TASKS. UNABLE TO CARRY ITEMS > 10 POUNDS. USING COMPENSATORY TECH/ PACING WHEN ABLE FOR IADLs. Sleep: UNABLE TO SLEEP DUE TO PAIN Driving: NO DIFFICULTIES Vision: READING GLASSES Balance: HX OF FALLS AND FEELING UNSTEADY DUE TO DIZZINESS Pain Assessment Pain Score: 4-10/10 Pain Scale Used: Numeric (0 - 10) Pain Location and Description: 4/10 AT REST RIGHT MEDIAL PAIN, SHARP PAIN RADIATING DOWN ARM 9-10/10 WITH GRABBING AND LIFTING ITEMS GENERAL BODY PAIN 5-6/10 DUE TO LUPUS Aggravating Factors: GRIPPING, SQUEEZING, OPENING DOORS AND TIGHT JARS Alleviating Factors: ADVIL DUAL ACTION REPORTS RELIEF WITH ICE > HEAT RESTING Skin and Soft Tissue Assessment Skin and Soft Tissue: Atrophy Comments: ATROPHY B/L THENAR EMINENCE Nerve assessment Ulnar Nerve: Right Impaired Sensory Assessment Temperature: Light Touch: WFL Proprioception: Vibration: Comments: SEMMES HECTOR INTACT TO RIGHT SMALL FINGER AND RING FINGER DIMINISHED LIGHT TOUCH TO RIGHT THENAR EMINENCE AND THUMB Edema Assessment Upper Extremity: Right Impaired Comments: MILD EDEMA IN R VOLAR FOREARM, MEDIAL ELBOW AND BICEP CIRCUMFERENCE 15 CM PROXIMAL TO ULNA STYLOID RIGHT: 25.2 CM, LEFT: 24.5 CM CIRCUMFERENCE AT WRIST, DISTAL TO ULNA STYLOID RIGHT: 15.7 CM, LEFT: 14.9 CM Dexterity Assessment Dexterity: WFL Comments: Special Tests Comments: (+) ELBOW FLEXION TEST ON RIGHT (-) TINELS AT ELBOW AND VOLAR WRIST ON RIGHT AROM(PROM) Strength Shoulder Flexion: Extension: Abduction: Internal Rotation: External Rotation: Comments: Flexion: R 4+/5, L 4+/5 Extension: Abduction: Internal Rotation: External Rotation: Comments: Elbow Flexion: R 145, L 150 Extension: R 0, L 0 Pronation: Supination: Comments: Flexion: R 4/5, L 4/5 Extension: R 4-/5, L 4-/5 Pronation: Supination: Comments: Wrist Flexion: Extension: Ulnar Deviation: Radial Deviation: Comments: WFL Flexion: Extension: Ulnar Deviation: Radial Deviation: Comments: Digits Index MCP: PIP: DIP: Long MCP: PIP: DIP: Ring MCP: PIP: DIP: Small MCP: PIP: DIP: Comments: Gross Grasp: R 45, L 58 Lateral Pinch: Two-Point Pinch: Three-Jaw Jonathan: Comments: R MEDIAL ELBOW PAIN WITH ELBOW EXTENDED FOR BUSINESS DEAN TESTING Patient Education 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 Patient demonstrates Patient verbalizes Needs reinforcement Barriers to Learning: None Readiness for Learning: Accepting Who was educated? Patient Comments: Plan of Care Assessment: QUIN REPORTS ABOUT 6 WEEK HISTORY OF R ELBOW AND FOREARM PAIN. SHE EXPERIENCED A FALL ONTO HER RIGHT ARM, SHE EXPERIENCES DIZZINESS AND UNSTEADINESS OFTEN DUE TO SIDE EFFECTS FROM MEDICATION. SINCE HER FALL, SHE REPORTS INCREASED NUMBNESS AND PIN/NEEDLES IN RIGHT SMALL FINGER AND RING FINGER. HER PAIN IS GREATEST AT THE MEDIAL ELBOW OF HER DOMINANT RIGHT UE. A 70% LIMITATION IS REPORTED PER THE QUICK DASH ASSESSMENT. ONGOING SKILLED OT WARRANTED FOR SUSPECTED CUBITAL TUNNEL SYNDROME, TO ACHIEVE OPTIMAL FUNCTIONAL LEVEL AND IMPROVE QUALITY OF LIFE. STG Duration: 2 WEEKS Short Term Goals: IND HEP IND USE OF HEAT/ICE RETURN TO MEANINGFUL ACTIVITIES/ HOBBIES WITH LOW PAIN IND JOINT PROTECTION AND ACTIVITY MODIFICATION IND EDEMA MANAGEMENT LTG Duration: 4 WEEKS Journal Box Inspector Goals: QUICKDASH <50% REPORT MIN SLEEP INTERRUPUTIONS AND IND'LY IMPLEMENT COMPENSATORY TECH TO IMPROVE SLEEP INCREASE R BICEP AND TRICEP STRENGTH BY 0.5 GRADE INCREASE R BUSINESS DEAN STRENGTH BY 10 POUNDS Frequency and Duration: The patient will be seen 2X/WEEK FOR 4 WEEKS Treatment Plan: Therapeutic Exercise Therapeutic Activity Home Exercise Program Splinting Neuro Re-ed Patient Education Desensitization/Sensory Re-ed Edema Control ADL Training Ultrasound NMES Iontophoresis Paraffin Fluidotherapy MHP Cold Packs Joint Mobilization Soft Tissue Mobilization Kinesiotaping Electronically Signed By: RHODA AYALA OTR/L Reviewed/agree with student documentation: N/A Therapist: Please sign and return to therapist, Thank you for your referral.
--- NOTE | 2021-03-01 13:07 | MHC.OT.DC ---
[address] [phone] F: [phone] Occupational Therapy Discharge Note Provider: Nathaniel Eckert Diagnosis: PAIN IN RIGHT FOREARM Date of Evaluation: 02/06/21 Date of Discharge: 03/01/21 Treatments to Date: 3 No Shows to Date: 3 Discharge Status: Visit Non-compliance Discharge Summary: Pt HAS HAD 3 NO-SHOWS AND WILL BE DISCHARGED FROM OT SERVICES DUE TO NON-COMPLIANCE WITH THE CORE ATTENDANCE POLICY. D/C OT SERVICES. Electronically Signed By: WALTER LEON/Neris Reviewed/agree with student documentation: N/A Therapist: Please Sign and return to therapist, thank you for your referral.
== END 2021-03-01 13:05 | disposition home or self-care (01) ==
LOC: HO.OT 11:00
PROVIDERS: PCP Family Medicine; Visit Provider Family Medicine
DX: M79.631 Pain in right forearm (principal)
CPT/HCPCS: 97035; 97110; 97140; 97166

== ENCOUNTER 2021-03-22 10:42 | Outpatient (REF) | payer OTHER, SELFPAY ==
[2021-03-22 13:58] LABS: MANUAL DIFF FLAG NO
[2021-03-22 14:05] LABS: Basophils Percent Auto 0.6 % (0-2); Eosinophils Percent Auto 0.2 % (0-4); Hematocrit 39.7 % (37.0-47.0); Imm Gran Abs Auto 0.01 X10*3/uL (0.00-0.03); Imm Gran Pct Auto 0.2 % (0.0-0.4); Lymphocytes Absolute Auto 1.5 X10*3/uL (1.2-4.9); Lymphocytes Percent Auto 29.3 % (20-40); Mean Corpuscular HGB Conc 32.7 g/dl (31.0-35.0); Mean Corpuscular Volume 94.7 fL (80.0-98.0); Mean Platelet Volume 10.5 fL (9.4-12.3); Monocytes Absolute Auto 0.4 X10*3/uL (0.1-1.2); Monocytes Percent Auto 7.4 % (2-11); Neutrophils Absolute Auto 3.1 x10*3/uL (2.0-8.3); Neutrophils Percent Auto 62.3 % (45-73); Platelet Count 310 X10*3/uL (160-400); Red Blood Count 4.19 X10*6/uL (4.20-5.50); Red Cell Distribution Width 12.8 % (11.0-16.0)
[2021-03-22 14:36] LABS: Alanine Aminotransferase 20 U/L (0-31); Albumin Level 4.3 g/dL (3.5-5.0); Alkaline Phosphatase 55 U/L (39-117); Anion Gap 8 (12-20); Aspartate Amino Transferase 20 U/L (5-31); Bilirubin Total 0.4 mg/dL (0.0-1.0); Blood Urea Nitrogen 9 mg/dL (9-16); Calcium 8.9 mg/dL (8.4-10.2); Carbon Dioxide 30 mmol/L (22-29); Chloride 104 mmol/L (96-108); Cholesterol 225 mg/dL; Estimated Glomerular Filt Rate > 60; Glucose Fasting 98 mg/dL (60-99); HDL Cholesterol 73 mg/dL; LDL Cholesterol Calculated 136 mg/dl; Sodium 138 mmol/L (135-145); Total Protein 6.8 g/dL (6.5-8.0); Triglycerides 80 mg/dL
[2021-03-22 14:37] LABS: TSH reflex Free T4 1.29 uIU/mL (0.32-4.0)
== END 2021-03-22 10:43 | disposition home or self-care (01) ==
LOC: HO.HMGCLDS 10:42
PROVIDERS: PCP Family Medicine; Visit Provider Family Medicine
DX: Z00.00 Encounter for general adult medical examination without abnormal findings (principal)
CPT/HCPCS: 36415; 80053; 80061; 84443; 85025

== ENCOUNTER 2021-05-24 10:16 | Outpatient (REF) | payer OTHER, SELFPAY ==
[2021-05-25 08:51] LABS: BV Int Neg Control Negative (Negative); BV Int Pos Control Positive (Positive)
[2021-05-29 20:01] LABS: HPV mRNA E6/E7 rflx Not Detected (Not Detected)
== END 2021-05-24 10:17 | disposition home or self-care (01) ==
LOC: HO.LAB 10:16
PROVIDERS: PCP Family Medicine; Visit Provider Advanced Practice Midwife
DX: Z01.419 Encounter for gynecological examination (general) (routine) without abnormal findings (principal); N93.0 Postcoital and contact bleeding; N89.8 Other specified noninflammatory disorders of vagina; R63.1 Polydipsia; N39.0 Urinary tract infection, site not specified; R23.2 Flushing
CPT/HCPCS: 87480; 87510; 87624; 87660; 88142

== ENCOUNTER 2021-05-25 09:44 | Outpatient (REF) | payer OTHER, SELFPAY ==
[2021-05-26 09:02] LABS: Follicle Stimulating Hormone 9.8 mIU/mL
== END 2021-05-25 09:45 | disposition home or self-care (01) ==
LOC: HO.HMGCLDS 09:44
PROVIDERS: PCP Family Medicine; Visit Provider Advanced Practice Midwife
DX: R23.2 Flushing (principal)
CPT/HCPCS: 36415; 83001

== ENCOUNTER 2021-06-08 15:17 | Outpatient (REF) | payer OTHER, SELFPAY ==
--- NOTE | ~2021-06-08 | US_ITS ---
EXAMINATION: US PELVIS CLINICAL INFORMATION: Postcoital and contact bleeding. LMP 05/05/2021. History of Essure device placed 15 years ago. COMPARISON: Previous CT of the abdomen and pelvis March 2019 and previous pelvic ultrasound January 2016. TECHNIQUE: Ultrasound of the pelvis is performed using both transabdominal and transvaginal transducers along with Doppler. Transvaginal imaging is performed due to inadequate visualization transabdominally. FINDINGS: The uterus is anteverted and measures 9.7 x 3.6 x 5.9 cm in dimension. No focal uterine lesion is seen. Endometrial thickness is normal measuring 0.7 cm. Linear echogenic density is seen in the right uterus compatible with Essure device. There are nabothian cysts in the cervix. The ovaries are normal-appearing. The right ovary measures 1.7 x 1.2 x 1.1 cm. The left ovary measures 2.0 x 1.1 x 2.1 cm. There is a 1.0 x 0.8 x 0.9 cm simple left ovarian cyst. There is no fluid in the pelvis. US/US pelvic and transvaginal IMPRESSION: Essure device seen in the right side of the uterus. Normal thickness endometrium. No focal uterine lesion seen.
== END 2021-06-08 15:18 | disposition home or self-care (01) ==
LOC: HO.US 15:17
PROVIDERS: PCP Family Medicine; Visit Provider Advanced Practice Midwife
DX: N93.0 Postcoital and contact bleeding (principal)
CPT/HCPCS: 76830; 76856

== ENCOUNTER → 2021-06-22 13:13 | Outpatient (BNVA) | payer OTHER, SELFPAY | PROVIDERS: PCP Family Medicine; Visit Provider Advanced Practice Midwife | DX: R23.2 Flushing (principal); N93.0 Postcoital and contact bleeding; Z71.2 Person consulting for explanation of examination or test findings | CPT/HCPCS: 99212 ==

== ENCOUNTER 2021-07-18 10:39 | Outpatient (REF) | payer OTHER, SELFPAY ==
--- NOTE | ~2021-07-18 | MM_ITS ---
EXAMINATION: MM SCREENING DIGITAL BREAST TOMOSYNTHESIS, BILATERAL CLINICAL INFORMATION: Screening. Asymptomatic. The lifetime risk of breast cancer based on the Tyrer-Cuzick Model is 9%. COMPARISON: Mammography: 02/16/2019, 10/15/2016, 06/19/2015, bilateral breast ultrasound 10/24/2016. TECHNIQUE: Digital breast tomosynthesis is performed in both the craniocaudal and mediolateral oblique views along with computer-aided detection (CAD). Synthesized 2D images are generated from the tomosynthesis. FINDINGS: The breasts are heterogeneously dense, which may obscure small masses (ACR BI-RADS breast composition Category c). There is fibrocystic parenchymal pattern with waxing and waning masses. Current exam shows dominant oval mass central left breast with partly obscured margins measuring 4 x 3 cm. This likely represents a dominant cyst. Patient will be recalled for targeted ultrasound to confirm. 0.8 cm nodule anterior lateral left breast is decreased from prior studies. There is no architectural abnormality or abnormal calcifications. The axilla and skin contours are unremarkable. MM/MM tomosynthesis screening BI IMPRESSION: 1. Fibrocystic parenchymal pattern with interval dominant mass central left breast 4 cm, likely a cyst. 2. No significant changes on right. ASSESSMENT: BI-RADS 0: Incomplete - Need Additional Imaging Evaluation RECOMMENDATION: 1. Targeted ultrasound left breast. 2. Radiology department staff will contact the patient for additional imaging. This patient's information was entered into a reminder system with a target due date for their next mammogram.
== END 2021-07-18 10:40 | disposition home or self-care (01) ==
LOC: HO.MAMMO 10:39
PROVIDERS: PCP Family Medicine; Visit Provider Advanced Practice Midwife
DX: Z12.31 Encounter for screening mammogram for malignant neoplasm of breast (principal)
CPT/HCPCS: 77063; 77067

== ENCOUNTER 2021-07-24 15:38 | Outpatient (REF) | payer OTHER, SELFPAY ==
--- NOTE | ~2021-07-24 | US_ITS ---
EXAMINATION: US DIAGNOSTIC ULTRASOUND BREAST, LEFT CLINICAL INFORMATION: Recall from screening for dominant mass central left breast, likely a cyst.. COMPARISON: Mammography 07/18/2021, 10/15/2016, left breast ultrasound 10/24/2016. TECHNIQUE: Ultrasound left breast is targeted to the central breast. Grayscale imaging and color Doppler are performed without and with harmonics. FINDINGS: There is a dominant cyst at 12:00 position 3 cm from nipple corresponding to the dominant mass on mammography and measuring 4.0 x 1.6 x 3.8 cm. This cyst has scattered benign floating internal specular echoes which may represent protein content or cholesterol crystals. There is no solid component or septation. Margins are circumscribed. No associated color flow. There is increased through-transmission of sound. There is no solid mass or architectural abnormality. There are a few other small cysts in the area interrogated, and next largest measuring under 1 cm. Results are discussed with the patient at time of visit. US/US breast LT limited IMPRESSION: Fibrocystic changes, dominant cyst corresponding to mammography measuring 4 cm. ASSESSMENT: BI-RADS 2: Benign RECOMMENDATION: Routine annual mammography screening. This patient's information was entered into a reminder system with a target due date for their next mammogram.
== END 2021-07-24 15:39 | disposition home or self-care (01) ==
LOC: HO.MAMMO 15:38
PROVIDERS: PCP Family Medicine; Visit Provider Advanced Practice Midwife
DX: N63.25 Unspecified lump in the left breast, overlapping quadrants (principal)
CPT/HCPCS: 76642

== ENCOUNTER 2021-08-07 13:08 | Outpatient (REF) | payer OTHER, SELFPAY ==
--- NOTE | ~2021-08-07 | US_ITS ---
EXAMINATION: ULTRASOUND SOFT TISSUES LEFT KNEE CLINICAL INFORMATION: Left knee lump and swelling; question effusion. COMPARISON: None TECHNIQUE: Using a linear array transducer with grayscale and color modalities, ultrasound examination performed of the left popliteal fossa. Particular attention is directed towards the palpable lump at that location. FINDINGS: The cutaneous, subcutaneous, muscular and fascial planes are unremarkable. A small joint effusion is seen within the left popliteal fossa. The vascular structures show normal color Doppler flow. No aneurysm is identified. No definite Gallagher's cyst is seen. There is no mass. No lymphadenopathy is seen. US/US extremity nonvascular IMPRESSION: Findings are consistent with a small left knee joint effusion.
== END 2021-08-07 13:09 | disposition home or self-care (01) ==
LOC: HO.US 13:08
PROVIDERS: PCP Family Medicine; Visit Provider Family Medicine
DX: M25.462 Effusion, left knee (principal)
CPT/HCPCS: 76882

== ENCOUNTER 2021-09-18 08:21 | Outpatient (REF) | payer OTHER, SELFPAY ==
[2021-09-18 11:27] LABS: MANUAL DIFF FLAG NO
[2021-09-18 11:34] LABS: Basophils Percent Auto 0.7 % (0-2); Eosinophils Absolute Auto 0.1 X10*3/uL (0.0-0.4); Eosinophils Percent Auto 0.9 % (0-4); Hematocrit 37.8 % (37.0-47.0); Hemoglobin 12.2 g/dl (12.0-16.0); Imm Gran Abs Auto 0.02 X10*3/uL (0.00-0.03); Imm Gran Pct Auto 0.3 % (0.0-0.4); Lymphocytes Absolute Auto 1.5 X10*3/uL (1.2-4.9); Lymphocytes Percent Auto 26.3 % (20-40); Mean Corpuscular HGB Conc 32.3 g/dl (31.0-35.0); Mean Corpuscular Hemoglobin 30.1 pg (27.0-33.0); Mean Corpuscular Volume 93.3 fL (80.0-98.0); Mean Platelet Volume 10.8 fL (9.4-12.3); Monocytes Absolute Auto 0.5 X10*3/uL (0.1-1.2); Monocytes Percent Auto 7.9 % (2-11); Neutrophils Absolute Auto 3.7 x10*3/uL (2.0-8.3); Neutrophils Percent Auto 63.9 % (45-73); Platelet Count 312 X10*3/uL (160-400); Red Blood Count 4.05 X10*6/uL (4.20-5.50); White Blood Count 5.8 X10*3/uL (4.8-10.8)
[2021-09-18 11:37] LABS: Appearance Urine CLEAR; Color Urine STRAW; Glucose Urine UA NEG (NEG); Leukocyte Esterase Urine NEG (NEG); Nitrite Urine NEG (NEG); Specific Gravity - Urine <= 1.005 (1.005-1.025); Urine Blood TRACE (NEG); Urine Ketones NEG (NEG); Urine Protein NEG (NEG-TRACE)
[2021-09-18 12:12] LABS: Squamous Epithelial Cell Urine 2+ /LPF
[2021-09-18 12:13] LABS: Bacteria Urine 1+ /LPF; RBC Urine 0-2 /HPF (0); WBC Urine 0-2 /HPF (0-4)
[2021-09-18 12:26] LABS: TSH reflex Free T4 1.92 uIU/mL (0.32-4.0); Vitamin D 25-OH Total 30.1 ng/mL (>30)
[2021-09-18 12:36] LABS: Alanine Aminotransferase 22 U/L (0-31); Albumin Level 4.1 g/dL (3.5-5.0); Alkaline Phosphatase 62 U/L (39-117); Anion Gap 11 (12-20); Aspartate Amino Transferase 18 U/L (5-31); Bilirubin Total < 0.2 mg/dL (0.0-1.0); Blood Urea Nitrogen 13 mg/dL (9-16); Calcium 9.3 mg/dL (8.4-10.2); Carbon Dioxide 26 mmol/L (22-29); Chloride 107 mmol/L (96-108); Cholesterol 213 mg/dL; Estimated Glomerular Filt Rate > 60; Glucose Fasting 100 mg/dL (60-99); HDL Cholesterol 67 mg/dL; LDL Cholesterol Calculated 135 mg/dl; Potassium 4.6 mmol/L (3.3-5.1); Sodium 139 mmol/L (135-145); Total Protein 6.7 g/dL (6.5-8.0); Triglycerides 57 mg/dL
[2021-09-18 14:31] LABS: Folate 9.7 ng/mL (> or = 4.0); Vitamin B12 839 pg/mL (200-900)
== END 2021-09-18 08:22 | disposition home or self-care (01) ==
LOC: HO.HMGCLDS 08:21
PROVIDERS: PCP Family Medicine; Visit Provider Family Medicine
DX: Z00.00 Encounter for general adult medical examination without abnormal findings (principal); Z13.29 Encounter for screening for other suspected endocrine disorder; E53.8 Deficiency of other specified B group vitamins; E55.9 Vitamin D deficiency, unspecified
CPT/HCPCS: 36415; 80053; 80061; 81001; 82306; 82607; 82746; 84443; 85025

== ENCOUNTER 2021-12-05 15:24 | Outpatient (REF) | payer OTHER, SELFPAY ==
[2021-12-05 17:45] LABS: Estimated Average Glucose 100 mg/dL; Hemoglobin A1c % 5.1 %
[2021-12-05 18:05] LABS: Sodium 140 mmol/L (135-145)
[2021-12-05 18:06] LABS: Alanine Aminotransferase 21 U/L (0-31); Albumin Level 4.7 g/dL (3.5-5.0); Alkaline Phosphatase 64 U/L (39-117); Anion Gap 12 (12-20); Aspartate Amino Transferase 20 U/L (5-31); Bilirubin Total 0.2 mg/dL (0.0-1.0); Blood Urea Nitrogen 12 mg/dL (9-16); Calcium 9.6 mg/dL (8.4-10.2); Carbon Dioxide 27 mmol/L (22-29); Chloride 106 mmol/L (96-108); Estimated Glomerular Filt Rate > 60; Glucose Fasting 97 mg/dL (60-99); Potassium 4.5 mmol/L (3.3-5.1); Total Protein 7.4 g/dL (6.5-8.0)
== END 2021-12-05 15:25 | disposition home or self-care (01) ==
LOC: HO.LAB 15:24
PROVIDERS: PCP Family Medicine; Visit Provider Family Medicine
DX: Z00.00 Encounter for general adult medical examination without abnormal findings (principal); R73.01 Impaired fasting glucose
CPT/HCPCS: 36415; 80053; 83036

== ENCOUNTER 2022-01-24 12:10 | Outpatient (REF) | payer OTHER, SELFPAY ==
--- NOTE | ~2022-01-24 | XR_ITS ---
EXAMINATION: CR X-RAY KNEES BILATERAL CLINICAL INFORMATION: Bilateral knee pain. COMPARISON: None TECHNIQUE: 3 views of the left knee were obtained along with bilateral weightbearing AP views of both knees. FINDINGS: Mild medial femoral-tibial joint space narrowing is seen bilaterally. There is no acute fracture or dislocation. Minimal marginal osteophyte formation is seen laterally at the patellofemoral joint. No significant joint effusion. The soft tissues are unremarkable. XR/XR knee standing BI IMPRESSION: Mild medial femoral-tibial joint space narrowing is similar bilaterally and could be normal for the patient. Mild degenerative narrowing cannot be excluded.
--- NOTE | ~2022-01-24 | XR_ITS ---
EXAMINATION: CR X-RAY KNEES BILATERAL CLINICAL INFORMATION: Bilateral knee pain. COMPARISON: None TECHNIQUE: 3 views of the left knee were obtained along with bilateral weightbearing AP views of both knees. FINDINGS: Mild medial femoral-tibial joint space narrowing is seen bilaterally. There is no acute fracture or dislocation. Minimal marginal osteophyte formation is seen laterally at the patellofemoral joint. No significant joint effusion. The soft tissues are unremarkable. XR/XR knee LT 3V IMPRESSION: Mild medial femoral-tibial joint space narrowing is similar bilaterally and could be normal for the patient. Mild degenerative narrowing cannot be excluded.
== END 2022-01-24 12:11 | disposition home or self-care (01) ==
LOC: HO.XRAY 12:10
PROVIDERS: Visit Provider Student in an Organized Health Care Education/Training Program
DX: R76.8 Other specified abnormal immunological findings in serum (principal); M17.12 Unilateral primary osteoarthritis, left knee; M79.7 Fibromyalgia
CPT/HCPCS: 73562; 73564; 73565; 99212

== ENCOUNTER → 2022-02-07 12:24 | Outpatient (BNVA) | payer OTHER, SELFPAY | PROVIDERS: PCP Family Medicine; Visit Provider Physician Assistant | DX: M23.92 Unspecified internal derangement of left knee (principal) | CPT/HCPCS: 20610; 99202; J1040 ==

== ENCOUNTER 2022-02-07 14:57 | Outpatient (RCR) | payer OTHER, SELFPAY ==
--- NOTE | 2022-02-07 17:34 | MHC.PT.EP ---
[facility] [place] Office [place] Office [place] Office [address] Godwin Russell [address] [phone] F: [phone] F: [phone] F: [phone] F: [phone] Physical Therapy Plan of Care Date of Evaluation: Date of Surgery: N/A Diagnosis: left knee osteoarthritis Assessment: Pt is a pleasant 56yo F who presents to PT with L knee pain for ~1 year. She denies SLOANE and reports gradual onset of pain. She presents to PT with current impairments in pain, decreased ROM, decreased strength, decreased muscle length, and impaired gait. She is limited functionally by prolonged walking, prolonged standing, stair navigation, and getting in/out of the car. She is a good candidate for skilled PT in order to address current impairments to facilitate return to PLOF. She will be seen 2x/week for 4 weeks and will be reassessed at that time. Frequency and Duration: The patient will be seen 2x/week for 4 weeks Short Term Goals: Pt will be I with HEP to promote self management of symptoms Pt will improve L knee flexion by at least 10 degrees Longterm Goals: Pt will demonstrate full ROM and strength throughout L knee to assist with prolonged standing and walking Pt will ascend/descend stairs with reciprocal pattern consistently Pt will demonstrate improvements in function as evidenced by statistically significant improvement in LEFI outcome measure Treatment Plan: Modalities to reduce pain, spasms and effusion. Manual therapy to restore motion and function. Therapeutic exercise to improve strength and flexibility. Neuromuscular re-education for posture and balance. Therapeutic activities to return to functional activities of daily living. Electronically signed by: Ileana Mistry, PT, DPT Please sign and return to therapist. Thank you for your referral.
--- NOTE | 2022-02-22 14:47 | MHC.PT.DC ---
[facility] [place] Office [place] Office [place] Office [address] Godwin Russell [address] [phone] F: [phone] F: [phone] F: [phone] F: [phone] Physical Therapy Discharge Report Diagnosis: left knee osteoarthritis Date of Surgery: N/A Date of Evaluation: 02/07/22 Date of Discharge: 02/22/22 Treatments to Date: 1 Cancellations to Date: 2 No Shows to Date: 2 Discharge Status: Visit Non-compliance Discharge Summary: Pt attended initial PT evaluation. She has had 2 cancellations and 2 no-show appointments since SOC. Pt is being D/C from skilled PT per [facility] attendance policy and visit non-compliance. Pt current level of function unknown. Electronically signed by: Ileana Mistry, PT, DPT Please sign and return to therapist. Thank you for your referral.
== END 2022-02-22 14:47 | disposition home or self-care (01) ==
LOC: HO.PT 14:57
PROVIDERS: PCP Family Medicine; Visit Provider Student in an Organized Health Care Education/Training Program
DX: M17.12 Unilateral primary osteoarthritis, left knee (principal)
CPT/HCPCS: 97162

== ENCOUNTER → 2022-09-04 11:23 | Outpatient (BNVA) | payer OTHER, SELFPAY | PROVIDERS: PCP Family Medicine; Visit Provider Advanced Practice Midwife ==

== ENCOUNTER 2022-09-26 13:26 | Outpatient (REF) | payer OTHER, SELFPAY ==
--- NOTE | ~2022-09-26 | MM_ITS ---
EXAMINATION: MM DIAGNOSTIC DIGITAL BREAST TOMOSYNTHESIS, BILATERAL US DIAGNOSTIC ULTRASOUND BREAST, LEFT CLINICAL INFORMATION: Due for yearly. Palpable fullness noted at clinical exam left breast 12:00. Prior history fibrocystic changes. TC score 9%. COMPARISON: Mammography 07/18/2021, 02/16/2019, 10/15/2016; left breast ultrasound 07/24/2021, bilateral breast ultrasound 10/24/2016. TECHNIQUE: Digital breast tomosynthesis is performed in both the craniocaudal and mediolateral oblique views along with computer-aided detection (CAD). Synthesized 2D images are generated from the tomosynthesis. Ultrasound left breast is targeted to the central breast interrogated from 9:00 through 3:00 position. Grayscale imaging and color Doppler are performed without and with harmonics. FINDINGS: The breasts are heterogeneously dense, which may obscure small masses (ACR BI-RADS breast composition Category c). There are chronic fibrocystic changes with round and oval masses with smooth margins, bilaterally decreased since 2018. The complicated cyst central 12:00 left breast is moderately decreased from prior exam 2021. Neither breast shows significant mass or interval architectural abnormality or developing density. No abnormal calcifications. The axilla and skin contours are unremarkable. Ultrasound left breast demonstrates a complicated avascular acorn/foam cyst mid 12:00 position with circumscribed margins and increased through-transmission of sound. No associated color flow. Measurements are approximately 1.8 x 1.4 cm compared with prior measurements 4.0 x 1.6 cm. There are some other scattered smaller cysts under 1 cm. No solid mass or architectural abnormality. Results are discussed with the patient at time of visit. The availability of ultrasound-guided needle aspiration was discussed in the event the fibrocystic changes become symptomatic. Patient notes no symptomatic concern at this time. MM/MM tomosynthesis diagnostic BI IMPRESSION: -Fibrocystic changes, bilaterally decreased since 2018. -Dominant left breast cyst corresponding to area of palpable finding, moderately decreased in size since prior exam 2021. ASSESSMENT: BI-RADS 2: Benign RECOMMENDATION: -If there remains clinical concern, then surgical consult may be considered for further evaluation. -Otherwise, routine annual mammography screening. This patient's information was entered into a reminder system with a target due date for their next mammogram.
== END 2022-09-26 13:27 | disposition home or self-care (01) ==
LOC: HO.MAMMO 13:26
PROVIDERS: PCP Family Medicine; Visit Provider Advanced Practice Midwife
DX: N63.25 Unspecified lump in the left breast, overlapping quadrants (principal)
CPT/HCPCS: 76642; 77062; 77066

== ENCOUNTER → 2022-10-09 13:00 | Outpatient (BNVA) | payer OTHER, SELFPAY | PROVIDERS: PCP Family Medicine; Visit Provider Advanced Practice Midwife ==

== ENCOUNTER 2022-11-19 09:13 | Outpatient (AMB) | payer OTHER, SELFPAY ==
[2022-11-19 09:14] VITALS: BP 124/78; PULSE 78; O2SAT 99; BMI 27.5
--- NOTE | 2022-11-19 09:14 | MHC.PC.OV ---
Vital Signs 11/19/22 09:14 Height 5 ft 2 in Weight 150 lb 3 oz BMI 27.5 BP 124/78 Blood Pressure Location Lt brachial Position Sitting Pulse 78 Pulse Source Pulse Oximeter Pulse Oximetry (%) 99 Oxygen Delivery Method Room Air Intake Visit Reasons: f/u brain aneurysm Intake Note: Patient is here for follow up on brain aneurysm. Allergies Latex, Natural Rubber [LATEX, NATURAL RUBBER] Allergy (Intermediate, Verified 11/19/22 09:22) RASH, HIVES buspirone Adverse Reaction (Unknown, Verified 11/19/22 09:22) chest heaviness, increased anxiety hydrocodone acetaminophen Allergy (Mild, Uncoded 11/19/22 09:27) sick Mirtazapine Adverse Reaction (Unknown, Uncoded 11/19/22 09:22) extreme somnolence Tobacco use date assessed: 05/21/22 Dental Screening Did you have a dental visit in the last 12 months?: Yes Did you have a dental problem in the last 6 months where you did not have access to dental care?: No Was dental information given to patient?: No HPI f/u brain aneurysm HPI Details 57 y/o female presents to f/u brain aneurysm. Pt states speech has improved but does still struggle with word finding. She also reports difficulty with filling out paperwork. She states she has only been taking tylenol for her chronic pain. Headaches have improved but states they are still there. Pt reports ongoing vertigo. Had referred her to vestibular rehab but it does not seem to be scheduled. She also reports neck pain. [facility] Medical History Chronic GERD Depression Fibromyalgia Gastroesophageal reflux disease Hernia History of hiatal hernia Lupus Surgical History History of nasal surgery History of repair of hiatal hernia Family History Mother Diabetes Rheumatoid arthritis Father Lung cancer Sister Rheumatoid arthritis Family/Other Lupus Social History Household Members: Family Housing: Apartment Do you presently have visiting nurse or other home services: No Alcohol intake: current Alcohol intake frequency: holidays/special occasions only Patient Tobacco Use Status: Former Tobacco user e-Cigarette/Vaping Use: Never Used Second Hand Smoke Exposure: No Substance Use Type: Marijuana service: No Current occupational status: unemployed 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 Wil Sharma, Lois Delcid, Smooth Timmons and colleagues, with an educational hali from [employer]. Review of Systems Const Denies chills, Denies fatigue, Denies fever(s), Denies headache(s) and Denies weakness ENT Denies dizziness, Denies headache(s) and Reports neck pain Card Denies chest pain, Denies lightheadedness, Denies dyspnea and Denies other (Palpitations) Resp Denies cough, Denies dyspnea, Denies wheezing and Denies other ( shortness of breath) Musc Reports neck pain, Denies numbness and Denies tingling Neuro Denies dizziness, Denies headache(s), Denies numbness, Denies tingling, Denies paresthesias and Denies weakness Psych Denies anxiety and Denies depression Endo Denies fatigue Aller/Immun Denies wheezing Physical exam (Primary Care) Vital Signs: Last Vital Signs Pulse 78 11/19/22 09:14 BP 124/78 11/19/22 09:14 Pulse Ox 99 11/19/22 09:14 Oxygen Delivery Method Room Air 11/19/22 09:14 BMI result Body Mass Index 27.5 Tobacco/Smoking Status: Tobacco use Status Tobacco use date assessed 05/21/22 11/19/22 09:15 Patient Tobacco Use Status Former Tobacco user 11/19/22 09:15 e-Cigarette/Vaping Use Never Used 11/19/22 09:15 Thrive Assessment: Date of Thrive Assessment Date Thrive assessed 05/21/22 11/19/22 09:15 Const General: no acute distress and well developed Nutritional Appearance: well nourished Orientation/consciousness: patient oriented x3 HENMT Head: Yes normocephalic and Yes atraumatic Eyes General: appearance normal, both eyes and all related structures Pupils: Equal, round and reactive pupils present EOM: EOMs intact bilaterally Resp Effort & Inspection: normal respiratory effort Auscultation: clear to auscultation bilaterally Cardio Rate: regular rate Rhythm: regular rhythm Heart sounds: S1 normal heart sound present, S2 normal heart sound present, no gallops, no murmurs and no rubs Neuro General: patient oriented x3 and gait normal Cranial nerves: Yes Equal, round and reactive pupils present Psych Affect: normal affect Assessment and Plan Assessment & Plan (1) Subarachnoid hemorrhage: Code(s): I60.9 - Nontraumatic subarachnoid hemorrhage, unspecified Plan: Recent small subarachnoid hemorrhage which showed improvement on serial imaging. She had had significant word-finding difficulties at her last visit 2 weeks ago. This has improved objectively though patient notes ongoing difficulties, subjectively. Will continue to monitor. Avoid NSAIDs and blood thinners (2) Dizziness: Code(s): R42 - Dizziness and giddiness Plan: Ongoing vertigo. Referred for physical therapy/vestibular rehab. Also give her a short course of prednisone; avoiding NSAIDs (3) Dysphasia: Code(s): R47.02 - Dysphasia Plan: Referred to ENT (4) Chronic pain: Code(s): G89.29 - Other chronic pain Plan: Now unable to use NSAIDs such as Celebrex. She is using acetaminophen. I have referred her to physical therapy for cervicalgia. Will also give her a small script of Percocet. Once brain bleed has fully resolved, will switch back to tramadol p.r.n. (5) Lupus: Code(s): M32.9 - Systemic lupus erythematosus, unspecified Plan: History of lupus and patient would like a referral back to [facility] where she had been seen before. Referral is made (6) Mild anemia: Code(s): D64.9 - Anemia, unspecified Plan: Check labs (7) Jaw pain: Code(s): R68.84 - Jaw pain Plan: Ongoing jaw pain which may be related to cervicalgia and scalp headaches. Giving her short course of prednisone. She is referred to ENT (8) Cervicalgia: Code(s): M54.2 - Cervicalgia Plan: As above, avoiding NSAIDs Giving her short course of prednisone and starting physical therapy (9) Depression: Comment: Major Depressive Disorder Recurrent Severe without psychosis. Code(s): F32.9 - Major depressive disorder, single episode, unspecified Qualifiers: Active/Remission status: currently active Depression Type: major depressive disorder Major depression episode severity: severe Major depression recurrence: recurrent Psychotic features: without psychotic features Qualified Code(s): F33.2 - Major depressive disorder, recurrent severe without psychotic features Plan: Continue bupropion Also having some issues with anxiety and I have given her a short course of lorazepam. Orders: Orders Complete Blood Count Auto Diff Today D64.9 - Anemia, unspecified, Z00.00 - Encounter for general adult medical examination without abnormal findings IRON PROFILE Today D64.9 - Anemia, unspecified Reticulocyte Count Today D64.9 - Anemia, unspecified Vitamin D 25-OH Total Today E55.9 - Vitamin D deficiency, unspecified, R79.89 - Other specified abnormal findings of blood chemistry Comprehensive Met. Panel Today R42 - Dizziness and giddiness Referrals Neurosurgery Referral I60.9 - Nontraumatic subarachnoid hemorrhage, unspecified Rheumatology Referral M32.9 - Systemic lupus erythematosus, unspecified Ear/Nose/Throat Referral R42 - Dizziness and giddiness, R47.02 - Dysphasia Medications: New oxycodone-acetaminophen 5-325 mg (Percocet) Partial Fill upon patient request. 0.5 tabs PO DAILY 14 days PRN 7 tabs 0RF pain prednisone 40 mg (2 x 20 mg) PO DAILY 4 days 8 tabs 0RF lorazepam 0.5 mg PO DAILY 30 days PRN 12 tabs 0RF anxiety Coding Level of Care Code Est Pt Level 4 (56369) Diagnoses Subarachnoid hemorrhage I60.9 Dizziness R42 Dysphasia R47.02 Chronic pain G89.29 Lupus M32.9 Mild anemia D64.9 Jaw pain R68.84 Cervicalgia M54.2 Depression F33.2 Active/Remission status: currently active Depression Type: major depressive disorder Major depression episode severity: severe Major depression recurrence: recurrent Psychotic features: without psychotic features
== END 2022-11-19 10:26 | disposition home or self-care (01) ==
PROVIDERS: PCP Family Medicine; Visit Provider Family Medicine
DX: I60.9 Nontraumatic subarachnoid hemorrhage, unspecified (principal); M32.9 Systemic lupus erythematosus, unspecified; F33.2 Major depressive disorder, recurrent severe without psychotic features; R42 Dizziness and giddiness; R47.02 Dysphasia; R68.84 Jaw pain; G89.29 Other chronic pain; D64.9 Anemia, unspecified; M54.2 Cervicalgia
CPT/HCPCS: 99214

== ENCOUNTER 2022-11-19 10:31 | Outpatient (REF) | payer OTHER, SELFPAY ==
[2022-11-19 14:22] LABS: MANUAL DIFF FLAG NO
[2022-11-19 14:24] LABS: Basophils Percent Auto 0.8 % (0-2); Eosinophils Absolute Auto 0.1 X10*3/uL (0.0-0.4); Eosinophils Percent Auto 1.1 % (0-4); Hematocrit 38.1 % (37.0-47.0); Hemoglobin 12.4 g/dl (12.0-16.0); Imm Gran Abs Auto 0.01 X10*3/uL (0.00-0.03); Imm Gran Pct Auto 0.2 % (0.0-0.4); Immature Retic Fraction 9.4 % (3.0-15.9); Lymphocytes Absolute Auto 1.7 X10*3/uL (1.2-4.9); Lymphocytes Percent Auto 32.6 % (20-40); Mean Corpuscular HGB Conc 32.5 g/dl (31.0-35.0); Mean Corpuscular Hemoglobin 30.8 pg (27.0-33.0); Mean Corpuscular Volume 94.5 fL (80.0-98.0); Mean Platelet Volume 9.9 fL (9.4-12.3); Monocytes Absolute Auto 0.4 X10*3/uL (0.1-1.2); Monocytes Percent Auto 7.7 % (2-11); Neutrophils Percent Auto 57.6 % (45-73); Platelet Count 351 X10*3/uL (160-400); Red Blood Count 4.03 X10*6/uL (4.20-5.50); Red Cell Distribution Width 12.3 % (11.0-16.0); Retic HGB Equivalent 35.7 pg (30.0-35.0); Reticulocyte Percent 1.4 % (0.5-1.8); Reticulocytes Absolute 0.056 X10*6/uL (0.026-0.095); White Blood Count 5.2 X10*3/uL (4.8-10.8)
[2022-11-19 15:19] LABS: Alanine Aminotransferase 21 U/L (0-31); Albumin Level 4.5 g/dL (3.5-5.0); Alkaline Phosphatase 68 U/L (39-117); Anion Gap 12 (12-20); Aspartate Amino Transferase 17 U/L (5-31); Bilirubin Total 0.5 mg/dL (0.0-1.0); Blood Urea Nitrogen 9 mg/dL (9-16); Calcium 10.1 mg/dL (8.4-10.2); Carbon Dioxide 25 mmol/L (22-29); Chloride 106 mmol/L (96-108); Estimated Glomerular Filt Rate > 60; Glucose Random 99 mg/dL (60-115); Iron 100 mcg/dL (30-160); Percent Iron Saturation 34 % (15-50); Sodium 139 mmol/L (135-145); Total Iron Binding Capacity 291 mcg/dL (228-428); Total Protein 7.2 g/dL (6.5-8.0); Unsaturated Iron Binding 191 ug/dL
[2022-11-19 15:37] LABS: Vitamin D 25-OH Total 37.4 ng/mL (>30)
== END 2022-11-19 10:32 | disposition home or self-care (01) ==
LOC: HO.WFDLDS 10:31
PROVIDERS: Visit Provider Family Medicine
DX: Z00.00 Encounter for general adult medical examination without abnormal findings (principal); D64.9 Anemia, unspecified; E55.9 Vitamin D deficiency, unspecified; R42 Dizziness and giddiness; R79.89 Other specified abnormal findings of blood chemistry
CPT/HCPCS: 36415; 80053; 82306; 83540; 85025; 85045

== ENCOUNTER 2022-12-05 11:57 | Outpatient (AMB) | payer OTHER, SELFPAY ==
--- NOTE | 2022-12-05 12:01 | MHC.PC.OV ---
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: No Accompanied by: Self / Same As Patient Allergies Latex, Natural Rubber [LATEX, NATURAL RUBBER] Allergy (Intermediate, Verified 12/05/22 12:02) RASH, HIVES buspirone Adverse Reaction (Unknown, Verified 12/05/22 12:02) chest heaviness, increased anxiety hydrocodone acetaminophen Allergy (Mild, Uncoded 11/19/22 09:27) sick Mirtazapine Adverse Reaction (Unknown, Uncoded 11/19/22 09:22) extreme somnolence Tobacco use date assessed: 05/21/22 Dental Screening Dental Screen Date: 12/05/22 Did you have a dental visit in the last 12 months?: Yes Did you have a dental problem in the last 6 months where you did not have access to dental care?: No Was dental information given to patient?: Patient has dentist HPI CPE Follow up labs HPI Details 57 y/o female presents for a CPE with f/u labs and health maintenance. Labs were drawn 11/19/22. Reviewed labs with pt. Liver enzymes were fine. No lipid panel drawn. Subarachnoid hemorrhage x1 month ago - resolving. She reports ongoing difficulties with speech. She denies any smoking. HPI Comments History of Present Illness Details Documentation assistance for Nathaniel Eckert MD, was provided by Dorian Wise, Flat Folder on 12/05/2022 1:01 PM OSMIN. Jesús, Dr. Eckert, have read, observed, and verified documentation. [facility] Medical History Chronic GERD Depression Fibromyalgia Gastroesophageal reflux disease Hernia History of hiatal hernia Lupus Surgical History History of nasal surgery History of repair of hiatal hernia Family History Mother Diabetes Rheumatoid arthritis Father Lung cancer Sister Rheumatoid arthritis Family/Other Lupus Social History Household Members: Family Housing: Apartment Do you presently have visiting nurse or other home services: No Alcohol intake: current Alcohol intake frequency: holidays/special occasions only Patient Tobacco Use Status: Former Tobacco user e-Cigarette/Vaping Use: Never Used Second Hand Smoke Exposure: No Substance Use Type: Marijuana service: No Current occupational status: unemployed 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 Wil Sharma, Lois Delcid, Smooth Timmons and colleagues, with an educational hali from [employer]. Review of Systems Const Denies chills, Denies fatigue, Denies fever(s), Denies headache(s) and Denies weakness Eyes Denies change in vision ENT Denies dizziness, Denies headache(s), Denies hearing loss, Denies nasal congestion, Denies sinus pain, Denies sinus pressure and Denies sore throat Card Denies chest pain, Denies lightheadedness, Denies dyspnea and Denies other (palpitations) Resp Denies cough, Denies dyspnea and Denies wheezing GI Denies abdominal pain, Denies melena, Denies hematochezia, Denies change in bowel habits, Denies dyspepsia and Denies nausea Denies hematuria and Denies dysuria Musc Denies abnormal gait, Denies myalgias, Denies arthralgias, Denies numbness and Denies tingling Skin/Breast Denies rash, Denies unusual bruising and Denies wounds Neuro Denies abnormal gait, Denies dizziness, Denies headache(s), Denies memory loss, Denies numbness, Denies Sensory deficit (Neuro), Denies tingling and Denies weakness Psych Reports anxiety, Reports depression and Denies memory loss Endo Denies cold intolerance, Denies fatigue, Denies heat intolerance, Denies polydipsia and Denies polyuria Dylan/Lymph Denies easy bleeding and Denies easy bruising Aller/Immun Denies wheezing Physical exam (Primary Care) Vital Signs: Last Vital Signs Pulse 76 12/05/22 12:03 BP 126/74 12/05/22 12:03 BMI result Body Mass Index 29.4 Tobacco/Smoking Status: Tobacco use Status Tobacco use date assessed 05/21/22 12/05/22 12:02 Patient Tobacco Use Status Former Tobacco user 12/05/22 12:02 e-Cigarette/Vaping Use Never Used 12/05/22 12:02 Thrive Assessment: Date of Thrive Assessment Date Thrive assessed 05/21/22 12/05/22 12:02 Const General: no acute distress, well developed, alert and awake Nutritional Appearance: well nourished Orientation/consciousness: patient oriented x3 HENMT Head: Yes normocephalic and Yes atraumatic Ears: hearing grossly normal bilaterally and TM's normal bilaterally General nose exam: Normal external nose present and Normal nares present Mouth: Normal oral and palatal mucosa present and moist mucous membranes Teeth and gingiva: dentition normal Throat: Yes posterior oropharynx normal Eyes General: appearance normal, both eyes and all related structures Pupils: Equal, round and reactive pupils present and Pupil accommodation reflex normal EOM: EOMs intact bilaterally Neck Neck: Yes normal visual inspection, Yes no lymphadenopathy and Yes trachea midline Thyroid: Thyroid normal Carotids: no bruits Lymphatic: no lymphadenopathy noted Chest Chest palpation & inspection: normal inspection of the chest Resp Effort & Inspection: normal respiratory effort Auscultation: clear to auscultation bilaterally Cardio Rate: regular rate Rhythm: regular rhythm Heart sounds: S1 normal heart sound present, S2 normal heart sound present, no gallops, no murmurs and no rubs Bruits: no abdominal aortic bruits and no carotid bruits GI Palpation (GI): No Abdominal aortic bruit present, Soft to palpation, nontender, No hepatosplenomegaly present and No Rebound tenderness present Auscultation: normal bowel sounds General: Yes no CVA tenderness Back/Spine/Pelvis Back: no CVA tenderness Cervical Spine: cervical ROM normal and No Cervical spine tenderness Thoracic/Lumbar Spine: thoraco-lumbar ROM normal, No pain with thoraco-lumbar ROM, No thoracic spinal tenderness and No lumbar spinal tenderness Skin Lesions: no lesions Rashes: no rashes Trauma: no lacerations or abrasions Wounds: no wounds Nails: normal Neuro General: patient oriented x3 Cranial nerves: Yes Equal, round and reactive pupils present Cognition (Neuro): normal cognition Gait exam (Neuro): Normal gait present Motor exam (neuro): 5/5 motor strength present throughout Sensory Exam: No Sensory deficit (Neuro) Deep tendon reflexes (DTR's): Right patellar reflex intensity grade: 2+ and Left patellar reflex intensity grade: 2+ Extrem General: Yes normal to inspection and No edema Psych Appearance: grossly normal Affect: normal affect Attitude: cooperative Thought process: Normal thought process present Assessment and Plan Assessment & Plan (1) Annual physical exam: Code(s): Z00.00 - Encounter for general adult medical examination without abnormal findings Plan: 57-year-old woman presents for complete physical exam Stable (2) Subarachnoid hemorrhage: Code(s): I60.9 - Nontraumatic subarachnoid hemorrhage, unspecified Plan: Subarachnoid hemorrhage 1 month ago; resolving Still has some difficulty with speech She is referred to speech and hearing Avoiding NSAIDs Blood pressure is controlled. She does not smoke (3) Difficulty with speech: Code(s): R47.9 - Unspecified speech disturbances Plan: As above, she is referred to speech and hearing (4) Depression: Comment: Major Depressive Disorder Recurrent Severe without psychosis. Code(s): F32.9 - Major depressive disorder, single episode, unspecified Qualifiers: Active/Remission status: currently active Depression Type: major depressive disorder Major depression episode severity: severe Major depression recurrence: recurrent Psychotic features: without psychotic features Qualified Code(s): F33.2 - Major depressive disorder, recurrent severe without psychotic features Plan: Ongoing moderately severe major depressive disorder Currently on bupropion History of suicide attempt though no recent attempt. Does not have a therapist currently and does not have a psychiatrist. Will ask the nurse navigator to help her with a therapist as she has had difficulty getting that paid for. Will make a direct referral to Psychiatry given above history (5) Elevated LDL cholesterol level: Code(s): E78.00 - Pure hypercholesterolemia, unspecified Plan: Due to recheck cholesterol levels Ordered (6) Screening for cervical cancer: Code(s): Z12.4 - Encounter for screening for malignant neoplasm of cervix Plan: Had Pap smear last year and is followed by [facility] [place] [place] obstetrics gynecology md (7) Breast cancer screening by mammogram: Code(s): Z12.31 - Encounter for screening mammogram for malignant neoplasm of breast Plan: Recent mammogram and ultrasound show known fibrocystic changes but a consistent with prior exams. Recommended annual screening (8) Screening for colon cancer: Code(s): Z12.11 - Encounter for screening for malignant neoplasm of colon Plan: Followed by [facility] [place] [place] gastroenterology and up-to-date Orders: Orders Lipid Panel Today E78.00 - Pure hypercholesterolemia, unspecified, Z00.00 - Encounter for general adult medical examination without abnormal findings Basic Metabolic Panel Fasting Today E78.00 - Pure hypercholesterolemia, unspecified Referrals Psychiatry Referral F32.9 - Major depressive disorder, single episode, unspecified, T50.912A - Poisoning by multiple unspecified drugs, medicaments and biological substances, intentional self-harm, initial encounter Nurse Navigator Referral F32.9 - Major depressive disorder, single episode, unspecified Medications: Changed From lorazepam 0.5 mg PO DAILY 30 days PRN 12 tabs 0RF anxiety To lorazepam 0.5 mg PO Q12H PRN 60 tabs 0RF anxiety 30 days From meclizine 25 mg PO TID PRN dizziness To meclizine 25 mg PO BID PRN 60 tabs 0RF dizziness 30 days Coding Level of Care Code Est Pt Level 3 (44677) Est Pt Prev Care 40-64y(13233) Diagnoses Annual physical exam Z00.00 Subarachnoid hemorrhage I60.9 Difficulty with speech R47.9 Depression F33.2 Active/Remission status: currently active Depression Type: major depressive disorder Major depression episode severity: severe Major depression recurrence: recurrent Psychotic features: without psychotic features Elevated LDL cholesterol level E78.00 Screening for cervical cancer Z12.4 Breast cancer screening by mammogram Z12.31 Screening for colon cancer Z12.11
[2022-12-05 12:03] VITALS: BP 126/74; PULSE 76; BMI 29.4
== END 2022-12-05 14:44 | disposition home or self-care (01) ==
PROVIDERS: PCP Family Medicine; Visit Provider Family Medicine
DX: Z00.00 Encounter for general adult medical examination without abnormal findings (principal); I60.9 Nontraumatic subarachnoid hemorrhage, unspecified; R47.9 Unspecified speech disturbances; F33.2 Major depressive disorder, recurrent severe without psychotic features; E78.00 Pure hypercholesterolemia, unspecified; Z12.31 Encounter for screening mammogram for malignant neoplasm of breast; Z12.11 Encounter for screening for malignant neoplasm of colon
CPT/HCPCS: 99396

== ENCOUNTER 2022-12-09 12:50 | Outpatient (RCR) | payer OTHER, SELFPAY ==
--- NOTE | 2023-03-07 10:36 | MHC.SP.ADU ---
Referring provider: Nathaniel Eckert MD Reason for Referral: Not specified Type of Treatment: 54828 Standardized Cognitive Performance Testing, per hour Date of Plan of Treatment: 12/09/22 Onset of Symptoms/Illness: 12/09/22 Date Treatment Started: 12/09/22 Medical Diagnosis: s/p subarachnoid hemorrhage Primary Speech Language Diagnosis: R41.841 Cognitive communication disorder History Sheri is a 57 year old female referred to [facility] for cognitive-linguistic testing by Nathaniel Eckert MD. Sheri?s medical history is inclusive of lupus, acid reflux, allergies, anxiety/depression, migraines, panic attacks, and most recently a subarachnoid hemorrhage on October 28, 2022. Sheri reports no childhood history of speech, language, or hearing difficulty or any special education support services while in school. She reports a history of ?brain fog? since being diagnosed with lupus that has worsened and caused ?increased confusion? since the brain hemorrhage. Sheri reports difficulty with cognition and communication that affect her activities of daily living. She describes cognitive concerns including memory and planning. For example, she states she has trouble remembering what utensils are needed to prepare a meal and locating where the utensils are. She also reports difficulty remembering to attend various appointments. Sheri does report improvement in cognitive function and activities of daily living since the hemorrhage, describing ?I couldn?t brush my own teeth? and ?People needed to tell me what to do.? Sheri reports one of her main concerns is difficulty ?getting words and thoughts out.? She reports difficulty getting the thoughts in her head out into fluent and cohesive speech. Sheri reports that her doctor recommended speech therapy be a priority Medical History: Acid Reflux Allergies Emotional or Psychological Issues Neurological Conditions e.g.: [place]'s, Parkinson's Stroke Anxiety/depression Panic attacks Migraines Social History: Employment Status: Unemployed Highest level of education obtained: Some College Assistive Devices in use: Glasses/Contacts Swallowing History: Comments: The referral form from Nathaniel Eckert MD notes a diagnosis of dysphagia. Recommend further evaluation of swallowing function. Reported Speech, Language, Cognition difficulties: Understanding Attention Reading Cognition Speaking Problem Solving Writing Voice Assessment Tests of Cognition: RBANS: Repeatable Battery for the Assessment of Neuropsychological Status The RBANS-Updated Form A assesses aspects of cognitive memory, language, and attention skills. The RBANS is considered a screening battery for cognitive function and is repeatable for the purpose of evaluating any changes in function. It is intended for use with adolescents and adults, ages 12 to 89 years. Composite domains assessed in this test are: Immediate Memory, Visuospatial/Constructional, Language, Attention, and Delayed Memory. Sheri?s performance is summarized below: Immediate Memory: This domain assesses the individual's ability to remember information immediately after it is presented. Index score: 73 Percentile: 4 Interpretation: Borderline List Learning Scaled score: 4 Interpretation: Borderline Story Memory Scaled score: 6 Interpretation: Low Average Visuospatial/Constructional: This domain assesses the individual's ability to perceive spatial relations and to construct a spatially accurate copy of a drawing. Index score: 78 Percentile: 7 Interpretation: Borderline Figure Copy Scaled score: 3 Interpretation: Extremely Low Line Orientation Percentile: 26-50 Interpretation: Average Language: This domain assesses the individual's ability to respond verbally to either naming or retrieving learned material. Index score: 94 Percentile: 34 Interpretation: Average Picture Naming Percentile: 51-75 Interpretation: Average Semantic Fluency Scaled score: 8 Interpretation: Average Attention: This domain assesses the individual's capacity to remember and manipulate both visually and orally presented information in short-term memory storage Index score: 88 Percentile: 21 Interpretation: Low Average Digit Span Scaled score: 6 Interpretation: Low Average Coding Scaled score: 10 Interpretation: Average Delayed Memory: This domain assesses the individual's anterograde memory capacity. Low scores indicate difficulties with recognition and retrieval of information from long-term memory stores. Index score: 94 Percentile: 34 Interpretation: Average List Recall Percentile: 3-9 Interpretation: Borderline List Recognition Percentile: 51-75 Interpretation: Average Story Recall Scaled score: 9 Interpretation: Average Figure Recall Scaled score: 10 Interpretation: Average Overall Score: Total scale: 88 Percentile: 10 Interpretation: Low Average ANALYSIS: A relative strength during today?s testing was language. When presented with a line drawing, Sheri named each of the ten pictures accurately with minimal hesitation in response. When given one minute to name as many fruits and vegetables as possible in one minute, Sheri named 18 different items and repeating two items. Sheri scored within the average range on all language tasks, which does not demonstrate a difficulty with word finding. When provided with a 10 word list read aloud by the clinician then asked to recall the words immediately, Sheri was able to recall a greater number of words following each repetition of the word list. Sheri was later asked to revisit this 10 word list during delayed memory tasks targeting recall and recognition. When asked to recall the 10 word list following a delay, Sheri correctly recalled 2 out of 10 words. During the recognition task, Sheri was provided the cue, Was ___ on the list? During this task, she accurately answered ?yes? to all 10 words on the list and answered all 20 questions correctly. This may indicate that possible strategies to be learned and implemented through speech therapy can help improve immediate and delayed memory. Augmentative and Alternative Communication: Observations: Impressions and Recommendations Summary: Based on today?s evaluation, Sheri presents with mild cognitive impairment marked by difficulties with immediate memory and visuospatial/constructional memory. Sheri is very motivated to improve skills to assist in her activities of daily living. It is recommended that Sheri participate in outpatient speech therapy to improve cognitive skills with rehabilitative and compensatory strategies. Impact on Daily Function/Activity Limitations: Daily Activities: Moderate Interpersonal Interactions: Moderate Community: Moderate Prognosis for Improvement: Good Recommendation for Speech Therapy: Further Testing Needed Outpatient Speech Therapy It is recommended that Sheri be referred for a Videofluroscopic Swallow Study (VFSS)/Modified Barium Swallow (MBS) due to reported difficulty swallowing It is recommended for Sheri to participate in 1:1 speech and language therapy 1X weekly for 12 weeks in the outpatient setting Frequency/Duration: 1x/week x 12 weeks Time to Reassess: 3 months The following goals are recommended: Security Messenger Goals: LTG 1 Sheri will complete additional standardized testing to obtain standardized scores and update goals as appropriate. LTG 2 Sheri will improve cognitive skills in the area of memory Short Term Goals: STG 1.1 Sheri will complete the Cognitive Linguistic Quick Test (CLQT) with 100% completion to better inform goals. STG 1.2 Sheri will complete the [place] Naming Test (BNT) with 100% completion to better inform goals. Goal Status: New Goal STG 2.1 Sheri will recall independently 2-3 memory strategies with 100% accuracy. STG 2.2 Sheri will recall list of 5 items presented to her orally with 80% accuracy when provided with moderate assistance. Goal Status: New Goal Patient Education: Completed: Yes Patient/Caregiver Education: Described Results of Evaluation Patient expressed understanding of evaluation Patient agrees with goals and treatment plan It was a pleasure to meet and work with Sheri. If you have any questions about the contents of this report, do not hesitate to contact me at [phone] or [email or web address] Pharmacist Clinican/Clinical Fellow: No Supervisory Statement: N/A Speech Language Pathologist: Mariaelena Walker M.A., CCC-BUSINESS ANALYTICS FACULTY MEMBER
== END 2022-12-16 11:10 | disposition still patient (30) ==
LOC: HO.SH 12:50
PROVIDERS: Visit Provider Family Medicine
DX: R47.1 Dysarthria and anarthria (principal); R47.02 Dysphasia; I60.9 Nontraumatic subarachnoid hemorrhage, unspecified
CPT/HCPCS: 96125

== ENCOUNTER 2022-12-11 11:00 | Outpatient (REF) | payer MEDICARE, MEDICAID, SELFPAY ==
[2022-12-11 14:46] LABS: MANUAL DIFF FLAG NO
[2022-12-11 14:56] LABS: Appearance Urine Clear; Basophils Percent Auto 0.8 % (0-2); Color Urine Yellow; Eosinophils Absolute Auto 0.1 X10*3/uL (0.0-0.4); Eosinophils Percent Auto 1.9 % (0-4); Glucose Urine UA Negative (Negative); Hematocrit 37.4 % (37.0-47.0); Hemoglobin 12.5 g/dl (12.0-16.0); Imm Gran Abs Auto 0.01 X10*3/uL (0.00-0.03); Imm Gran Pct Auto 0.2 % (0.0-0.4); Leukocyte Esterase Urine Negative (Negative); Lymphocytes Absolute Auto 1.6 X10*3/uL (1.2-4.9); Lymphocytes Percent Auto 29.9 % (20-40); Mean Corpuscular HGB Conc 33.4 g/dl (31.0-35.0); Mean Corpuscular Hemoglobin 30.9 pg (27.0-33.0); Mean Corpuscular Volume 92.6 fL (80.0-98.0); Mean Platelet Volume 9.9 fL (9.4-12.3); Monocytes Absolute Auto 0.5 X10*3/uL (0.1-1.2); Monocytes Percent Auto 8.9 % (2-11); Neutrophils Percent Auto 58.3 % (45-73); Nitrite Urine Negative (Negative); PH 7.5 (5.0-9.0); Platelet Count 320 X10*3/uL (160-400); Red Blood Count 4.04 X10*6/uL (4.20-5.50); Red Cell Distribution Width 12.4 % (11.0-16.0); Specific Gravity - Urine 1.015 (1.005-1.025); Urine Blood Negative (Negative); Urine Ketones Negative (Negative); Urine Protein Negative (Neg-Trace); White Blood Count 5.2 X10*3/uL (4.8-10.8)
[2022-12-11 15:32] LABS: Alanine Aminotransferase 20 U/L (0-31); Albumin Level 4.3 g/dL (3.5-5.0); Alkaline Phosphatase 58 U/L (39-117); Anion Gap 14 (12-20); Aspartate Amino Transferase 16 U/L (5-31); Bilirubin Total 0.4 mg/dL (0.0-1.0); Blood Urea Nitrogen 9 mg/dL (9-16); Calcium 9.3 mg/dL (8.4-10.2); Carbon Dioxide 23 mmol/L (22-29); Chloride 108 mmol/L (96-108); Cholesterol 219 mg/dL; Estimated Glomerular Filt Rate > 60; Glucose Fasting 95 mg/dL (60-99); HDL Cholesterol 60 mg/dL; LDL Cholesterol Calculated 143 mg/dl; Potassium 4.1 mmol/L (3.3-5.1); Sodium 141 mmol/L (135-145); Total Protein 6.9 g/dL (6.5-8.0); Triglycerides 81 mg/dL
[2022-12-11 15:56] LABS: Creatinine Urine 56.89 mg/dL; Microalbumin Urine < 5.0 mg/L
== END 2022-12-11 11:01 | disposition home or self-care (01) ==
LOC: HO.LNP 11:00
PROVIDERS: Visit Provider Family Medicine
DX: Z00.00 Encounter for general adult medical examination without abnormal findings (principal); E78.00 Pure hypercholesterolemia, unspecified; I10 Essential (primary) hypertension
CPT/HCPCS: 36415; 80053; 80061; 81003; 82043; 84443; 85025

== ENCOUNTER 2022-12-19 10:52 | Outpatient (AMB) | payer MEDICARE, MEDICAID, SELFPAY ==
[2022-12-19 10:59] VITALS: BP 128/76; PULSE 79; O2SAT 96; BMI 29.0
--- NOTE | 2022-12-19 10:59 | MHC.PC.OV ---
Vital Signs 12/19/22 10:59 Height 5 ft 2 in Weight 158 lb 9 oz BMI 29.0 BP 128/76 Blood Pressure Location Lt brachial Position Sitting Pulse 79 Pulse Source Pulse Oximeter Pulse Oximetry (%) 96 Oxygen Delivery Method Room Air Intake Visit Reasons: f/u chronic conditions Intake Note: Patient is here for follow up on chronic conditions. She complains of headache today. She also complains of being depressed today. Allergies Latex, Natural Rubber [LATEX, NATURAL RUBBER] Allergy (Intermediate, Verified 12/19/22 11:02) RASH, HIVES buspirone Adverse Reaction (Unknown, Verified 12/19/22 11:02) chest heaviness, increased anxiety hydrocodone acetaminophen Allergy (Mild, Uncoded 12/19/22 11:02) sick Mirtazapine Adverse Reaction (Unknown, Uncoded 12/19/22 11:02) extreme somnolence Tobacco use date assessed: 12/19/22 Dental Screening Dental Screen Date: 12/19/22 Did you have a dental visit in the last 12 months?: Yes Did you have a dental problem in the last 6 months where you did not have access to dental care?: No Was dental information given to patient?: No HPI f/u chronic conditions HPI Details 57 y/o female presents to f/u chronic conditions such as anxiety/depression as well as recent subarachnoid hemorrhage. Also following up on lipids. Labs were drawn 12/11/22. Reviewed labs with pt. Triglycerides 81. TC 219. LDL 143. HDL 60. She reports she is on bupropion one 75mg in the morning and half a dose in the afternoon. She reports she had planned to get a psychiatrist. Pt has an upcoming appt. with Speech & Hearing. [facility] Medical History Chronic GERD Depression Fibromyalgia Gastroesophageal reflux disease Hernia History of hiatal hernia Lupus Surgical History History of nasal surgery History of repair of hiatal hernia Family History Mother Diabetes Rheumatoid arthritis Father Lung cancer Sister Rheumatoid arthritis Family/Other Lupus Social History Household Members: Family Housing: Apartment Do you presently have visiting nurse or other home services: No Alcohol intake: current Alcohol intake frequency: holidays/special occasions only Patient Tobacco Use Status: Former Tobacco user e-Cigarette/Vaping Use: Never Used Second Hand Smoke Exposure: No Substance Use Type: Marijuana service: No Current occupational status: unemployed 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 1. Little interest or pleasure in doing things: nearly every day 2. Feeling down, depressed, or hopeless: nearly every day 3. Trouble falling or staying asleep, or sleeping too much: not at all 4. Feeling tired or having little energy: several days 5. Poor appetite or overeating: nearly every day 6. Feeling bad about yourself - or that you are a failure or have let yourself or your family down: not at all 7. Trouble concentrating on things, such as reading the newspaper or watching television: nearly every day 8. Moving or speaking so slowly that other people could have noticed. Or the opposite - being so fidgety or restless that you have been moving around a lot more than usual: not at all 9. Thoughts that you would be better off or of hurting yourself in some way: several days Total score: 14 Source: Developed by Drs. Wil Sharma, Lois Delcid, Smooth Timmons and colleagues, with an educational hali from [employer]. Thrive Questionnaire Date Thrive assessed: 05/21/22 OLESYA-7 AMB Questionnaire OLESYA-7 Date OLESYA - 7 assessed: 05/21/22 Feeling nervous, anxious, or on edge: 3 = Nearly every day Not being able to stop or control worryin = Nearly every day Worrying too much about different things: 3 = Nearly every day Trouble relaxin = Several days Being so restless that it is hard to sit still: 1 = Several days Becoming easily annoyed or irritable: 3 = Nearly every day Feeling afraid as if something awful might happen: 3 = Nearly every day Total OLESYA-7 score (0-4 normal; 5-9 mild; 10-14 moderate; 15-21 severe): 17 Source: Developed by Drs. Wil Sharma, Lois Delcid, Smooth Timmons and colleagues, with an educational hali from [employer]. Review of Systems Const Denies chills, Denies fatigue, Denies fever(s), Denies headache(s) and Denies weakness ENT Denies dizziness and Denies headache(s) Card Denies chest pain, Denies lightheadedness, Denies dyspnea and Denies other (Palpitations) Resp Denies cough, Denies dyspnea, Denies wheezing and Denies other ( shortness of breath) Musc Denies numbness and Denies tingling Neuro Denies dizziness, Denies headache(s), Denies numbness, Denies tingling, Denies paresthesias and Denies weakness Psych Reports anxiety and Reports depression Endo Denies fatigue Aller/Immun Denies wheezing Physical exam (Primary Care) Vital Signs: Last Vital Signs Pulse 79 12/19/22 10:59 BP 128/76 12/19/22 10:59 Pulse Ox 96 12/19/22 10:59 Oxygen Delivery Method Room Air 12/19/22 10:59 BMI result Body Mass Index 29.0 Tobacco/Smoking Status: Tobacco use Status Tobacco use date assessed 12/19/22 12/19/22 11:08 Patient Tobacco Use Status Former Tobacco user 12/19/22 11:08 e-Cigarette/Vaping Use Never Used 12/19/22 11:08 PHQ-9: PHQ-9 Score PHQ-9: Total score 14 12/19/22 11:08 Thrive Assessment: Date of Thrive Assessment Date Thrive assessed 05/21/22 12/19/22 11:08 Const General: no acute distress and well developed Nutritional Appearance: well nourished Orientation/consciousness: patient oriented x3 [facility] Head: Yes normocephalic and Yes atraumatic Eyes General: appearance normal, both eyes and all related structures Pupils: Equal, round and reactive pupils present EOM: EOMs intact bilaterally Resp Effort & Inspection: normal respiratory effort Auscultation: clear to auscultation bilaterally Cardio Rate: regular rate Rhythm: regular rhythm Heart sounds: S1 normal heart sound present, S2 normal heart sound present, no gallops, no murmurs and no rubs Neuro General: patient oriented x3 and gait normal Cranial nerves: Yes Equal, round and reactive pupils present Psych Affect: normal affect Assessment and Plan Assessment & Plan (1) Elevated LDL cholesterol level: Code(s): E78.00 - Pure hypercholesterolemia, unspecified Plan: Elevated LDL. HDL is rather protective for general population but patient had recent vascular brain insult Will add atorvastatin for better cholesterol control and intravascular inflammation control. (2) Depression: Comment: Major Depressive Disorder Recurrent Severe without psychosis. Code(s): F32.9 - Major depressive disorder, single episode, unspecified Qualifiers: Active/Remission status: currently active Depression Type: major depressive disorder Major depression episode severity: severe Major depression recurrence: recurrent Psychotic features: without psychotic features Qualified Code(s): F33.2 - Major depressive disorder, recurrent severe without psychotic features Plan: Ongoing depression. She is on bupropion 75 mg a.m. and 37.5 mg p.m. She had been on Paxil in the past which she notes was helpful. Will resume Paxil at 10 mg daily and she will continue bupropion as prescribed She plans to go to [facility] today for intake and I am advising her to seek a therapist and psychiatrist. Show follow-up in a month as I have added Paxil today. (3) Subarachnoid hemorrhage: Code(s): I60.9 - Nontraumatic subarachnoid hemorrhage, unspecified Plan: Fairly stable Avoiding NSAIDs, controlling blood pressure and cholesterol levels Was referred to neurology Also referring to speech therapy (4) Difficulty with speech: Code(s): R47.9 - Unspecified speech disturbances Plan: Difficult speech after subarachnoid hemorrhage She was referred to speech therapy and has an upcoming appointment next week. Medications: New paroxetine HCl (Paxil) 10 mg PO DAILY 30 tabs 1RF 30 days Changed From bupropion HCl 75 mg PO BID 90 days 180 tabs 3RF To bupropion HCl 75mg AM & 37.5mg PM orally 2 times a day; 180 tabs 3RF 90 days Coding Level of Care Code Est Pt Level 3 (20558) Diagnoses Elevated LDL cholesterol level E78.00 Depression F33.2 Active/Remission status: currently active Depression Type: major depressive disorder Major depression episode severity: severe Major depression recurrence: recurrent Psychotic features: without psychotic features Subarachnoid hemorrhage I60.9 Difficulty with speech R47.9
== END 2022-12-19 12:23 | disposition home or self-care (01) ==
PROVIDERS: PCP Family Medicine; Visit Provider Family Medicine
DX: E78.00 Pure hypercholesterolemia, unspecified (principal); F33.2 Major depressive disorder, recurrent severe without psychotic features; I60.9 Nontraumatic subarachnoid hemorrhage, unspecified; R47.9 Unspecified speech disturbances
CPT/HCPCS: 99213

== ENCOUNTER 2023-01-01 09:00 | Outpatient (RCR) | payer MEDICARE, OTHER, MEDICAID, SELFPAY ==
--- NOTE | 2023-01-01 10:14 | MHC.PT.DC ---
[facility] [place] Office [place] Office [place] Office [address] Godwin Russell [address] [phone] F: [phone] F: [phone] F: [phone] F: [phone] Physical Therapy Discharge Report Diagnosis: NONTRAUMATIC SUBARACHNOID HEMORRHAGE Date of Surgery: NA Date of Evaluation: 12/04/22 Date of Discharge: 01/01/23 Treatments to Date: 8 Cancellations to Date: No Shows to Date: Discharge Status: Improved Function Independent with HEP Patient Elected to Stop Recommend MD Follow-up Discharge Summary: HAS MET MOST PT GOALS, IS LOOKING TO JOIN GYM. Pt ED TO BE MINDFUL OF WHAT ACTIVITIES/MOVEMENT AFFECT HER BAL THE MOST AND TRY TO AVOID/COMPENSATE. TO HAVE FU WITH DR RAMIREZ WHEN GETS MEDICAL RECORDS. Electronically signed by: JOVANA RODRIGUEZ PT Please sign and return to therapist. Thank you for your referral.
== END 2023-01-01 10:14 | disposition home or self-care (01) ==
LOC: HO.PTWFD 09:00
PROVIDERS: PCP Family Medicine; Visit Provider Family Medicine
DX: R42 Dizziness and giddiness (principal); I60.9 Nontraumatic subarachnoid hemorrhage, unspecified
CPT/HCPCS: 36415; 80053; 80061; 81003; 82043; 84443; 85025; 97110; 97140; 97162; 97530; 97535

== ENCOUNTER 2023-01-17 10:55 | Outpatient (AMB) | payer MEDICARE, MEDICAID, SELFPAY ==
--- NOTE | 2023-01-17 10:59 | MHC.PC.OV ---
Vital Signs 01/17/23 11:01 Height 5 ft 2 in Weight 156 lb 6 oz BMI 28.6 BP 98/54 L Blood Pressure Location Rt brachial Position Sitting Respiration 13 Pulse 88 Pulse Source Pulse Oximeter Temp 98.1 F Temp Source Oral Pulse Oximetry (%) 98 Oxygen Delivery Method Room Air Intake Visit Reasons: f/u anxiety/depression Intake Note: Patient is here to follow up for anxiety and depression. She reports she may need medications refilled and would like to discuss this with the doctor. Drying Frame Operator Required: No Accompanied by: Self / Same As Patient Allergies Latex, Natural Rubber [LATEX, NATURAL RUBBER] Allergy (Intermediate, Verified 01/17/23 11:08) RASH, HIVES buspirone Adverse Reaction (Unknown, Verified 01/17/23 11:08) chest heaviness, increased anxiety hydrocodone acetaminophen Allergy (Mild, Uncoded 12/19/22 11:02) sick Mirtazapine Adverse Reaction (Unknown, Uncoded 12/19/22 11:02) extreme somnolence Tobacco use date assessed: 12/19/22 HPI f/u anxiety/depression HPI Details 57 y/o female presents to f/u anxiety/depression. Had started her on some artovastatin for her cholesterol levels. She denies any problems with her artovastatin. Recent subarachnoid hemorrhage October 2022 and had seen Neurology 12/25/22. She is on bupropion and Paxil 10mg daily. She notes she would like to increase the Paxil as she had been experiencing anxiety about driving which she has not had before. She reports she has a therapist she sees weekly. Pt reports chest pain and some shortness of breath which may or may not be associated with it. She reports chest pain does get worse with exertion. [facility] Medical History Chronic GERD Depression Fibromyalgia Gastroesophageal reflux disease Hernia History of hiatal hernia Lupus Surgical History History of nasal surgery History of repair of hiatal hernia Family History Mother Diabetes Rheumatoid arthritis Father Lung cancer Sister Rheumatoid arthritis Family/Other Lupus Social History Household Members: Family Housing: Apartment Do you presently have visiting nurse or other home services: No Alcohol intake: current Alcohol intake frequency: holidays/special occasions only Patient Tobacco Use Status: Former Tobacco user e-Cigarette/Vaping Use: Never Used Second Hand Smoke Exposure: No Substance Use Type: Marijuana service: No Current occupational status: unemployed Current occupational exposures/hazards: No Sexual orientation: Straight/Heterosexual Cognitive needs: No Hearing needs: No Vision needs: No Female Reproductive History Menstrual Age of Menarche: 11 Questionnaire PHQ-9 Over the last 2 weeks, how often have you been bothered by any of the following problems? 1. Little interest or pleasure in doing things: several days 2. Feeling down, depressed, or hopeless: several days 3. Trouble falling or staying asleep, or sleeping too much: several days 4. Feeling tired or having little energy: several days 5. Poor appetite or overeating: not at all 6. Feeling bad about yourself - or that you are a failure or have let yourself or your family down: several days 7. Trouble concentrating on things, such as reading the newspaper or watching television: several days 8. Moving or speaking so slowly that other people could have noticed. Or the opposite - being so fidgety or restless that you have been moving around a lot more than usual: more than half the days 9. Thoughts that you would be better off or of hurting yourself in some way: not at all Total score: 8 Depression Screening Interpretation: Positive 49227 - PHQ-9 Billing: Yes Source: Developed by Drs. Wil Sharma, Lois Delcid, Smooth Timmons and colleagues, with an educational hali from [employer]. Thrive Questionnaire Date Thrive assessed: 05/21/22 OLESYA-7 AMB Questionnaire OLESYA-7 Date OLESYA - 7 assessed: 01/17/23 Feeling nervous, anxious, or on edge: 2 = More than half the days Not being able to stop or control worryin = Several days Worrying too much about different things: 1 = Several days Trouble relaxin = Several days Being so restless that it is hard to sit still: 0 = Not at all Becoming easily annoyed or irritable: 1 = Several days Feeling afraid as if something awful might happen: 1 = Several days Total OLESYA-7 score (0-4 normal; 5-9 mild; 10-14 moderate; 15-21 severe): 7 Source: Developed by Drs. Wil Sharma, Lois Delcid, Smooth Timmons and colleagues, with an educational hali from [employer]. OLESYA-7 Assessment Billing OLESYA-7 Assessment Tool: OLESYA-7 Assessment 11740 Review of Systems Const Denies chills, Denies fatigue, Denies fever(s), Denies headache(s) and Denies weakness ENT Denies dizziness and Denies headache(s) Card Reports chest pain, Denies lightheadedness, Reports dyspnea and Denies other (Palpitations) Resp Denies cough, Reports dyspnea, Denies wheezing and Denies other ( shortness of breath) Musc Denies numbness and Denies tingling Neuro Denies dizziness, Denies headache(s), Denies numbness, Denies tingling, Denies paresthesias and Denies weakness Psych Details: Mild anxiety/depression Reports anxiety and Reports depression Endo Denies fatigue Aller/Immun Denies wheezing Physical exam (Primary Care) Vital Signs: Last Vital Signs Temp 98.1 F 01/17/23 11:01 Pulse 88 01/17/23 11:01 Resp 13 01/17/23 11:01 BP 98/54 L 01/17/23 11:01 Pulse Ox 98 01/17/23 11:01 Oxygen Delivery Method Room Air 01/17/23 11:01 BMI result Body Mass Index 28.6 Tobacco/Smoking Status: Tobacco use Status Tobacco use date assessed 12/19/22 01/17/23 11:01 Patient Tobacco Use Status Former Tobacco user 01/17/23 11:01 e-Cigarette/Vaping Use Never Used 01/17/23 11:01 PHQ-9: PHQ-9 Score PHQ-9: Total score 8 01/17/23 11:43 Depression Screening Interpretation: Positive Thrive Assessment: Date of Thrive Assessment Date Thrive assessed 05/21/22 01/17/23 11:01 Const General: no acute distress and well developed Nutritional Appearance: well nourished Orientation/consciousness: patient oriented x3 HENMT Head: Yes normocephalic and Yes atraumatic Eyes General: appearance normal, both eyes and all related structures Pupils: Equal, round and reactive pupils present EOM: EOMs intact bilaterally Resp Effort & Inspection: normal respiratory effort Auscultation: clear to auscultation bilaterally Cardio Rate: regular rate Rhythm: regular rhythm Heart sounds: S1 normal heart sound present, S2 normal heart sound present, no gallops, no murmurs and no rubs Neuro General: patient oriented x3 and gait normal Cranial nerves: Yes Equal, round and reactive pupils present Psych Affect: Anxious affect present Assessment and Plan Assessment & Plan (1) Depression: Comment: Major Depressive Disorder Recurrent Severe without psychosis. Code(s): F32.9 - Major depressive disorder, single episode, unspecified Qualifiers: Active/Remission status: currently active Depression Type: major depressive disorder Major depression episode severity: severe Major depression recurrence: recurrent Psychotic features: without psychotic features Qualified Code(s): F33.2 - Major depressive disorder, recurrent severe without psychotic features Plan: Some improvement with resumption of Paxil but she would like to increase the dose. Increasing Paxil from 10 mg daily to 20 mg daily and continuing bupropion as prescribed. Occasionally uses some lorazepam for anxiety. She now has a therapist and has discussed a referral to Psychiatry with her therapist. Wait time is usually about 3 months. Will continue to manage her medications for now. (2) Elevated LDL cholesterol level: Code(s): E78.00 - Pure hypercholesterolemia, unspecified Plan: Began a statin medication at her last visit due to elevated LDL cholesterol in a patient with a cerebrovascular her disorder. She can get her lipids rechecked prior to her next visit (3) Subarachnoid hemorrhage: Code(s): I60.9 - Nontraumatic subarachnoid hemorrhage, unspecified Plan: History of subarachnoid hemorrhage. Resolving neurological deficits such as speech with the help of a speech language pathologist. Still has residual memory issues and mild facial droop. (4) Exertional chest pain: Code(s): R07.9 - Chest pain, unspecified Plan: Patient notes some chest pain associated with exertion. She also notes some shortness of breath. EKG: Normal sinus rhythm, normal axis, no hypertrophy, no ST-T-wave changes. Normal EKG at rest Will check a stress test. Referred patient to Cardiology. Orders: Orders Comprehensive [place]. Panel Fast Today E78.00 - Pure hypercholesterolemia, unspecified, Z00.00 - Encounter for general adult medical examination without abnormal findings CA stress test Today R07.9 - Chest pain, unspecified Lipid Panel Today E78.00 - Pure hypercholesterolemia, unspecified, Z00.00 - Encounter for general adult medical examination without abnormal findings AMB EKG-In Office Today R07.9 - Chest pain, unspecified Referrals Cardiology Referral R07.9 - Chest pain, unspecified Medications: Changed From paroxetine HCl (Paxil) 10 mg PO DAILY 30 days 30 tabs 1RF To paroxetine HCl 20 mg PO DAILY 30 tabs 2RF 30 days Coding Level of Care Code Est Pt Level 4 (06450) Diagnoses Severe episode of recurrent major depressive disorder, without psychotic features F33.2 Active/Remission status: currently active Depression Type: major depressive disorder Major depression episode severity: severe Major depression recurrence: recurrent Psychotic features: without psychotic features Elevated LDL cholesterol level E78.00 Subarachnoid hemorrhage I60.9 Exertional chest pain R07.9 Additional Codes OLESYA-7 Assessment Billing - OLESYA-7 Assessment Tool: OLESYA-7 Assessment 15221 ([id number])
[2023-01-17 11:01] VITALS: BP 98/54; PULSE 88; RESP 13; TEMP 36.7; O2SAT 98; BMI 28.6
== END 2023-01-17 12:15 | disposition home or self-care (01) ==
PROVIDERS: PCP Family Medicine; Visit Provider Family Medicine
DX: R07.9 Chest pain, unspecified (principal); F33.2 Major depressive disorder, recurrent severe without psychotic features; E78.00 Pure hypercholesterolemia, unspecified; I60.9 Nontraumatic subarachnoid hemorrhage, unspecified
CPT/HCPCS: 93000; 99214

== ENCOUNTER 2023-04-24 11:00 | Outpatient (RCR) | payer MEDICARE, MEDICAID, SELFPAY | END 2023-11-10 11:38 | disposition home or self-care (01) | LOC: HO.SH 11:00 | PROVIDERS: Visit Provider Family Medicine | DX: R47.1 Dysarthria and anarthria (principal); R47.02 Dysphasia; I60.9 Nontraumatic subarachnoid hemorrhage, unspecified | CPT/HCPCS: 92507 ==

== ENCOUNTER → 2023-04-30 09:55 | Outpatient (REF) | payer MEDICARE, SELFPAY ==
--- NOTE | 2023-04-30 09:59 | CA_ITS ---
Acquisition Time: 2023-04-30 09:57:38 Total Exercise Time: 00:07:12 Test Indications: CP, SOB Medications: SEE H Protocol: JOSE Max HR: 141 BPM 86% of Pred: 163 BPM Max BP: 118/060 mmHG Max Work Load: 8.8 METS Exercise stress test exercise 7 min 12 sec of jose protocol achieving 87% MPHR, with mild SOB, no chest discomfort, without arrhythmias seen through artifact, with normotensive response to exericse, without EKG changes. Test revieed with Dr. Quinonez Referred By: Nathaniel Eckert Overread By: Lucia Messina
== END ==
LOC: HO.CARD 09:55
PROVIDERS: PCP Family Medicine; Visit Provider Family Medicine
DX: R07.9 Chest pain, unspecified (principal)
CPT/HCPCS: 93017

== ENCOUNTER → 2023-04-30 09:59 | Outpatient (BNV) | payer MEDICARE, SELFPAY | PROVIDERS: PCP Family Medicine; Visit Provider Nurse Practitioner | DX: R07.9 Chest pain, unspecified (principal) | CPT/HCPCS: 93016; 93018 ==

== ENCOUNTER 2023-05-21 10:23 | Outpatient (REF) | payer MEDICARE, SELFPAY ==
[2023-05-21 14:40] LABS: Alanine Aminotransferase 18 U/L (0-31); Albumin Level 4.6 g/dL (3.5-5.0); Alkaline Phosphatase 82 U/L (39-117); Anion Gap 14 (12-20); Aspartate Amino Transferase 18 U/L (5-31); Bilirubin Total 0.4 mg/dL (0.0-1.0); Blood Urea Nitrogen 10 mg/dL (9-16); Calcium 9.7 mg/dL (8.4-10.2); Carbon Dioxide 26 mmol/L (22-29); Chloride 105 mmol/L (96-108); Cholesterol 159 mg/dL (<200); Estimated Glomerular Filt Rate > 60; Glucose Fasting 104 mg/dL (60-99); HDL Cholesterol 73 mg/dL (>40); LDL Cholesterol Calculated 72 mg/dL (<100); Sodium 141 mmol/L (135-145); Total Protein 7.4 g/dL (6.5-8.0); Triglycerides 74 mg/dL (<150)
== END 2023-05-21 10:24 | disposition home or self-care (01) ==
LOC: HO.WFDLDS 10:23
PROVIDERS: Visit Provider Family Medicine
DX: Z00.00 Encounter for general adult medical examination without abnormal findings (principal); E78.00 Pure hypercholesterolemia, unspecified
CPT/HCPCS: 36415; 80053; 80061

== ENCOUNTER 2023-05-23 09:35 | Outpatient (AMB) | payer MEDICARE, SELFPAY ==
--- NOTE | 2023-05-23 09:39 | A.OFFPC_ITS ---
Vital Signs 05/23/23 09:41 Height 5 ft 2 in Weight 165 lb BMI 30.2 BP 100/62 Blood Pressure Location Rt brachial Position Sitting Respiration 17 Pulse 85 Pulse Source Pulse Oximeter Pulse Oximetry (%) 98 Oxygen Delivery Method Room Air Intake Visit Reasons: f/u chronic conditions Extrusion Die Template Maker Required: No Accompanied by: Self / Same As Patient Allergies Latex, Natural Rubber [LATEX, NATURAL RUBBER] Allergy (Intermediate, Verified 05/23/23 09:44) RASH, HIVES buspirone Adverse Reaction (Unknown, Verified 05/23/23 09:44) chest heaviness, increased anxiety hydrocodone acetaminophen Allergy (Mild, Uncoded 05/23/23 09:44) sick Mirtazapine Adverse Reaction (Unknown, Uncoded 05/23/23 09:44) extreme somnolence Tobacco use date assessed: 12/19/22 HPI f/u chronic conditions HPI Details 58 y/o female presents to f/u chronic co nditions. Had referred to Cardiology for exertional chest pain - EKG had been normal and ordered a stress test. Stress test 04/30/23. Mild SOB, no chest discomfort, without arrhythmias seen through artifact with normotensive response to exercise, without EKG changes. Labs were drawn 05/21/23. Reviewed labs with pt. Triglycerides 74. TC 159. LDL 72. HDL 73. She is on artovastatin 10mg. Pt reports ear pain. [facility] Medical History Chronic GERD Depression Fibromyalgia Gastroesophageal reflux disease Hernia History of hiatal hernia Lupus Surgical History History of repair of hiatal hernia History of nasal surgery Family History Mother Diabetes Rheumatoid arthritis Father Lung cancer Sister Rheumatoid arthritis Family/Other Lupus Social History Household Members: Family Housing: Apartment Do you presently have visiting nurse or other home services: No Alcohol intake: current Alcohol intake frequency: holidays/special occasions only Comment: sleeping Patient Tobacco Use Status: Former Tobacco user e-Cigarette/Vaping Use: Never Used Second Hand Smoke Exposure: No Substance Use Type: Marijuana service: No Current occupational status: unemployed Current occupational exposures/hazards: No Sexual orientation: Straight/Heterosexual Cognitive needs: No Hearing needs: No Vision needs: No Female Reproductive History Menstrual Age of Menarche: 11 Questionnaire PHQ-9 Over the last 2 weeks, how often have you been bothered by any of the following problems? 1. Little interest or pleasure in doing things: several days 2. Feeling down, depressed, or hopeless: several days 3. Trouble falling or staying asleep, or sleeping too much: more than half the days 4. Feeling tired or having little energy: several days 5. Poor appetite or overeating: several days 6. Feeling bad about yourself - or that you are a failure or have let yourself or your family down: several days 7. Trouble concentrating on things, such as reading the newspaper or watching television: more than half the days 8. Moving or speaking so slowly that other people could have noticed. Or the opposite - being so fidgety or restless that you have been moving around a lot more than usual: more than half the days 9. Thoughts that you would be better off or of hurting yourself in some way: not at all Total score: 11 Depression Screening Interpretation: Positive Depression Screening Follow-up: In treatment Depression Screening Done: Yes 48065 - PHQ-9 Billing: Yes Source: Developed by Drs. Wil Sharma, Lois Delcid, Smooth Timmons and colleagues, with an educational hali from [employer]. Thrive Questionnaire Date Thrive assessed: 05/23/23 I am a: Patient What is your living situation today?: I have a steady place to live Within the past 12 months, did the food you bought not last and you didn't have the money to get more?: Never true Within the past 12 months, did you worry whether your food would run out before you got money to buy more?: Never true Do you have trouble paying for medicines?: No Do you have trouble getting transportation to medical appointments?: No Do you have trouble paying your heating and electricity bill?: No Do you have trouble taking care of your child, family member or friend?: No Do you have trouble with day-to-day activities such as bathing, preparing meals, shopping, managing finances, etc.?: No Are you currently unemployed and looking for a job?: No Are you interested in more education?: No Please select the resources that you would like help with: None Currently or been in a relationship where the following occur: no concerns reported AUDIT C Alcohol Use Questionnaire (AUDIT-C) 1. How often do you have a drink containing alcohol?: Monthly or less 3. How often do you have six or more drinks on one occasion?: Never Total Score: 1 OLESYA-7 AMB Questionnaire OLESYA-7 Date OLESYA - 7 assessed: 05/23/23 Feeling nervous, anxious, or on edge: 1 = Several days Not being able to stop or control worryin = Several days Worrying too much about different things: 1 = Several days Trouble relaxin = More than half the days Being so restless that it is hard to sit still: 1 = Several days Becoming easily annoyed or irritable: 1 = Several days Feeling afraid as if something awful might happen: 3 = Nearly every day Total OLESYA-7 score (0-4 normal; 5-9 mild; 10-14 moderate; 15-21 severe): 10 Source: Developed by Drs. Wil Sharma, Lois Delcid, Smooth Timmons and colleagues, with an educational hali from [employer]. OLESYA-7 Assessment Billing OLESYA-7 Assessment Tool: OLESYA-7 Assessment 91746 Review of Systems Const Denies chills, Denies fatigue, Denies fever(s), Denies headache(s) and Denies weakness ENT Denies dizziness and Denies headache(s) Card Denies chest pain, Denies lightheadedness, Denies dyspnea and Denies other (Palpitations) Resp Denies cough, Denies dyspnea, Denies wheezing and Denies other ( shortness of breath) Musc Denies numbness and Denies tingling Neuro Denies dizziness, Denies headache(s), Denies numbness, Denies tingling, Denies paresthesias and Denies weakness Psych Denies anxiety and Denies depression Endo Denies fatigue Aller/Immun Denies wheezing Physical exam (Primary Care) Vital Signs: Last Vital Signs Pulse 85 05/23/23 09:41 Resp 17 05/23/23 09:41 BP 100/62 05/23/23 09:41 Pulse Ox 98 05/23/23 09:41 Oxygen Delivery Method Room Air 05/23/23 09:41 BMI result Body Mass Index 30.2 Tobacco/Smoking Status: Tobacco use Status Tobacco use date assessed 12/19/22 05/23/23 09:48 Patient Tobacco Use Status Former Tobacco user 05/23/23 09:48 e-Cigarette/Vaping Use Never Used 05/23/23 09:48 PHQ-9: PHQ-9 Score PHQ-9: Total score 11 05/23/23 09:48 Depression Screening Interpretation: Positive Depression Screening Follow-up: In treatment Thrive Assessment: Date of Thrive Assessment Date Thrive assessed 05/23/23 05/23/23 09:48 Currently or been in a relationship where the following occur: no concerns reported Const General: no acute distress and well developed Nutritional Appearance: well nourished Orientation/consciousness: patient oriented x3 HENMT Head: Yes normocephalic and Yes atraumatic Eyes General: appearance normal, both eyes and all related structures Pupils: Equal, round and reactive pupils present EOM: EOMs intact bilaterally Resp Effort & Inspection: normal respiratory effort Auscultation: clear to auscultation bilaterally Cardio Rate: regular rate Rhythm: regular rhythm Heart sounds: S1 normal heart sound present, S2 normal heart sound present, no gallops, no murmurs and no rubs Neuro General: patient oriented x3 and gait normal Cranial nerves: Yes Equal, round and reactive pupils present Psych Affect: normal affect Assessment and Plan Assessment & Plan (1) Chest pain: Code(s): R07.9 - Chest pain, unspecified Plan: Stress?test?was?negative She?has?an?appointment?with?cardiology (2) Elevated LDL cholesterol level: Code(s): E78.00 - Pure hypercholesterolemia, unspecified Plan: History?of?subarachnoid?hemorrhage/CVA Started?atorvastatin?with?goal?of?less?than?70?for?LDL?and?this?brought?her?LDL? down?to?72 Continue?atorvastatin?and?continue?to?work?at?diet?low?in?saturated?fats?and?cho lesterol (3) Otitis media: Code(s): H66.90 - Otitis media, unspecified, unspecified ear Plan: Mild?left?otitis?media Start?amoxicillin Warm?compresses (4) Vertigo: Code(s): R42 - Dizziness and giddiness Plan: Should?improve?with?treatment?of?left?otitis (5) Depression: Comment: Major Depressive Disorder Recurrent Severe without psychosis. Code(s): F32.9 - Major depressive disorder, single episode, unspecified Qualifiers: Active/Remission status: currently active Depression Type: major depressive disorder Major depression episode severity: severe Major depression recurrence: recurrent Psychotic features: without psychotic features Qualified Code(s): F33.2 - Major depressive disorder, recurrent severe without psychotic features Plan: Patient?would?like?a?referral?to?a?new?therapist?so?I?have?asked ?the?nurse?navigator?to?contact?her?about?this. Medications: New amoxicillin 500 mg PO Q12H 20 tabs 0RF 10 days Refilled lorazepam 0.5 mg PO Q12H 30 days PRN 60 tabs 0RF anxiety cholecalciferol (vitamin D3) 50 mcg (2 x 25 mcg (1,000 unit)) PO DAILY 30 days 60 tabs 3RF Coding Level of Care Code Est Pt Level 4 (33448) Diagnoses Chest pain R07.9 Elevated LDL cholesterol level E78.00 Otitis media H66.90 Vertigo R42 Severe episode of recurrent major depressive disorder, without psychotic features F33.2 Active/Remission status: currently active Depression Type: major depressive disorder Major depression episode severity: severe Major depression recurrence: recurrent Psychotic features: without psychotic features Additional Codes OLESYA-7 Assessment Billing - OLESYA-7 Assessment Tool: OLESYA-7 Assessment [id number] ([id number])
[2023-05-23 09:41] VITALS: BP 100/62; PULSE 85; RESP 17; O2SAT 98; BMI 30.2
== END 2023-05-23 10:28 | disposition home or self-care (01) ==
PROVIDERS: PCP Family Medicine; Visit Provider Family Medicine
DX: R07.9 Chest pain, unspecified (principal); E78.00 Pure hypercholesterolemia, unspecified; F33.2 Major depressive disorder, recurrent severe without psychotic features; I60.9 Nontraumatic subarachnoid hemorrhage, unspecified; H66.90 Otitis media, unspecified, unspecified ear; R42 Dizziness and giddiness
CPT/HCPCS: 99214

== ENCOUNTER 2023-05-28 14:21 | Outpatient (AMB) | payer MEDICARE, SELFPAY ==
[2023-05-28 14:35] VITALS: BP 106/66; PULSE 94; BMI 29.6
--- NOTE | 2023-05-28 14:35 | MHC.OFFVIS ---
Intake Vital Signs 05/28/23 14:35 Height 5 ft 2 in Weight 161 lb 13.109 oz BMI 29.6 BP 106/66 Blood Pressure Location Lt brachial Position Sitting Pulse 94 Intake Visit Reasons: NPV/Chest pain/T. [place] Intake Note: NPV Screen Printing Paster Required: No Accompanied by: Self / Same As Patient Allergies Latex, Natural Rubber [LATEX, NATURAL RUBBER] Allergy (Intermediate, Verified 05/28/23 14:37) RASH, HIVES buspirone Adverse Reaction (Unknown, Verified 05/28/23 14:37) chest heaviness, increased anxiety hydrocodone acetaminophen Allergy (Mild, Uncoded 05/28/23 14:37) sick Mirtazapine Adverse Reaction (Unknown, Uncoded 05/28/23 14:37) extreme somnolence Medication List - Last Reconciled 05/28/23 by El Davis MD acetaminophen (Tylenol Extra Strength) 1,000 mg PO Q6H PRN amoxicillin 500 mg PO Q12H 10 days atorvastatin 10 mg PO BEDTIME 90 days bupropion HCl 75mg AM & 37.5mg PM orally 2 times a day; 90 days cholecalciferol (vitamin D3) 50 mcg (2 x 25 mcg (1,000 unit)) PO DAILY 30 days fluoride (sodium) 1.1% (Denta 5000 Plus) appl PO BEDTIME fluticasone propionate 50 mcg/actuation 1 spray intranasal BID 30 days lorazepam 0.5 mg PO Q12H PRN 30 days magnesium L-threonate mg PO meclizine 25 mg PO BID PRN 30 days nadide (bulk) 100% (Nicotinamide Adenine Dinucleotide (NAD)) IV therapy. omeprazole 20 mg PO DAILY PRN 90 days paroxetine HCl 20 mg PO DAILY 30 days HPI HPI Comments History of Present Illness Details Sheri is here for consultation regarding shortness of breath and chest pains. She states that she gets short of breath with activity. Apparently last year she had subarachnoid bleed and was hospitalized for the same. After that incident, she states that she is feeling short of breath whenever she is physically active. She also gets random chest pains in the right side of the chest and in the right axillary region but that is nonexertional. Sensations of chest fluttering off and on. No known cardiac issues in the past. She is concerned because her sister who is 2 years older apparently had some stents put in. [facility] Medical History Chronic GERD Depression Fibromyalgia Gastroesophageal reflux disease Hernia History of hiatal hernia Lupus Surgical History History of repair of hiatal hernia History of nasal surgery Family History Mother Diabetes Rheumatoid arthritis Father Lung cancer Sister Rheumatoid arthritis Family/Other Lupus Social History Household Members: Family Housing: Apartment Do you presently have visiting nurse or other home services: No Alcohol intake: current Alcohol intake frequency: holidays/special occasions only Comment: sleeping Patient Tobacco Use Status: Former Tobacco user e-Cigarette/Vaping Use: Never Used Second Hand Smoke Exposure: No Substance Use Type: Marijuana service: No Current occupational status: unemployed Current occupational exposures/hazards: No Sexual orientation: Straight/Heterosexual Cognitive needs: No Hearing needs: No Vision needs: No Female Reproductive History Menstrual Age of Menarche: 11 Review of Systems Const Denies chills, Denies daytime sleepiness, Denies fatigue, Denies fever(s), Denies frequent falls, Denies night sweats, Denies snoring, Denies weakness, Denies weight gain and Denies weight loss Eyes Denies loss of vision ENT Denies dizziness and Denies hearing loss Card Reports chest pain at rest, Reports chest pain with activity, Denies syncope, Denies rapid heart rate, Denies edema, Denies claudication, Denies leg edema, Denies lightheadedness, Reports palpitations, Reports dyspnea, Reports dyspnea on exertion and Denies orthopnea Resp Denies cough, Denies excessive phlegm production, Reports dyspnea, Reports dyspnea on exertion, Denies snoring and Denies wheezing GI Denies abdominal pain, Denies hematochezia, Denies change in bowel habits, Denies change in stool character, Denies heartburn, Denies nausea and Denies vomiting Denies hematuria, Denies urinary frequency and Denies dysuria Musc Denies arthralgias, Denies muscle weakness, Denies numbness and Denies tingling Skin/Breast Denies nail changes and Denies rash Neuro Denies Abnormal speech present, Denies dizziness, Denies syncope, Denies frequent falls, Denies loss of vision, Denies memory loss, Denies numbness, Denies tingling and Denies weakness Psych Denies depression and Denies memory loss Endo Denies fatigue and Reports palpitations Aller/Immun Denies wheezing Physical Exam Vital Signs: Last Vital Signs Pulse 94 05/28/23 14:35 BP 106/66 05/28/23 14:35 BMI result Body Mass Index 29.6 Const General: comfortable and no acute distress Orientation/consciousness: patient oriented x3 HEENT Other: Unremarkable Head: Yes normal to inspection Neck Neck: Yes normal visual inspection Chest Chest palpation & inspection: normal inspection of the chest Resp Auscultation: clear to auscultation bilaterally Cardio Palpation: normal PMI Heart sounds: S1 normal heart sound present, S2 normal heart sound present, no gallops, no murmurs and no rubs GI Palpation (GI): Soft to palpation Back/Spine/Pelvis Other: unremarkable Skin General skin exam: no rashes or lesions noted Neuro General: patient oriented x3 Speech: No Abnormal speech present Extrem General: Yes normal to inspection Psych Mental Status: mental status grossly normal Assessment & Plan Assessment & Plan (1) SOB (shortness of breath): Code(s): R06.02 - Shortness of breath (2) Precordial chest pain: Code(s): R07.2 - Precordial pain Plan EKG shows sinus rhythm at 68/Min; no significant ST-T changes and otherwise unremarkable. Normal FL and corrected QT. In the exercise stress test, she was able to exercise for 8.8 METS on Dean protocol; reached 87% of max predicted heart rate; no angina; mild shortness of breath and EKG was negative for ischemia. With regard to the shortness of breath, get an echocardiogram for any structural abnormalities. With regard to the chest pain, sounds very atypical and nonexertional and with no significant findings on the stress test will hold off any further workup at this time. With regard to the palpitations, obtain Holter. Follow-up after the above. Orders: Orders CA echo transthoracic complete Today R06.02 - Shortness of breath ECG 7 day holter monitor Today R00.2 - Palpitations Coding Level of Care Code New Pt Level 4 (55671) Diagnoses SOB (shortness of breath) R06.02 Precordial chest pain R07.2
== END 2023-05-28 15:24 | disposition home or self-care (01) ==
PROVIDERS: PCP Family Medicine; Visit Provider Internal Medicine
DX: R06.02 Shortness of breath (principal); R07.2 Precordial pain
CPT/HCPCS: 99214

== ENCOUNTER → 2023-05-28 14:21 | Outpatient (BNVA) | payer MEDICARE, SELFPAY | PROVIDERS: PCP Family Medicine; Visit Provider Internal Medicine | DX: R06.02 Shortness of breath (principal); R07.2 Precordial pain | CPT/HCPCS: 99212 ==

== ENCOUNTER → 2023-06-20 07:00 | Outpatient (BNV) | payer MEDICARE, SELFPAY | PROVIDERS: PCP Family Medicine; Visit Provider Internal Medicine | DX: R00.0 Tachycardia, unspecified (principal) | CPT/HCPCS: 93248; 93306 ==

== ENCOUNTER → 2023-06-20 09:46 | Outpatient (REF) | payer MEDICARE, SELFPAY ==
--- NOTE | 2023-06-20 07:00 | CA_ITS ---
Transthoracic Echocardiogram Patient (Last, First, Middle): Sheri Bragg, Gender: Female Date of : 1965 Age: 58 Procedure Date: 06/20/2023 Procedure Type: Transthoracic Echocardiogram Location: OP Height: 157.48 cm Weight: 71.67 kg BSA: 1.73 m2 Heart Rate: bpm BP: 102 / 64 mmHg Roller: TO Referring MD: El Davis MD Symptoms: R06.02 - Shortness of breath Study Quality: Fair ECG Rhythm: Sinus Conclusions: - The left ventricular systolic function is normal. The calculated ejection fraction is 60% by biplane method. - No obvious valvular pathology seen on this study. Findings Left Ventricle Normal left ventricular cavity size. The left ventricular systolic function is normal. The calculated ejection fraction is 60% by biplane method. There is no evidence of regional wall motion abnormalities. Diastolic function is normal for age. There is mild septal and mild basal asymmetric hypertrophy. LV peak GLS -20.5%. Right Ventricle Normal right ventricular cavity size and systolic function. Atria Both atria are normal in size. Aortic Valve There is a normal trileaflet aortic valve. There is no aortic valve stenosis. There is trace (trivial) aortic valve regurgitation. Mitral Valve The mitral valve appears normal. There is trace mitral valve regurgitation. There is no mitral valve stenosis. Pulmonic Valve The pulmonic valve is likely normal. Tricuspid Valve Normal tricuspid valve structure. There is mild tricuspid valve regurgitation. There is no evidence of pulmonary hypertension. Great Vessels The asc aorta is normal in size. Venous The inferior vena cava is normal in size and collapses greater than 50% with inspiration. Pericardium/Pleural There is no evidence of pericardial effusion. Prior Study Comparison No prior study available for comparison. Recommendations, Care & Conclusions No obvious valvular pathology seen on this study. Measurements 2D Linear Measurements IVSd: 1.09 0.6-0.9/0.6-1.0 cm LVIDd: 3.72 3.9-5.3/4.2-5.9 cm LVIDd Index: 2.15 2.4-3.2/2.2-3.1 cm/m2 LVIDs: 2.33 2.0-3.6 cm LVPWd: 0.71 0.7-1.1 cm LA Diam: 3.20 2.7-3.8/3.0-4.0 cm LAIDs Index: 1.85 1.5-2.3 cm/m2 LV Mass: 121.67 67-162/88-224 g LV Mass Index: 70.33 43-95/49-115 g/m2 LVOT Diam: 2.30 3.0+(-)1.3 cm 2D Systolic Function EF 4C: 60.00 >55% EF 2C: 60.40 >55% EF BiP: 60.10 >55% Mitral Valve MV Pk E: 0.81 MV PK A: 0.56 MV Decel Time: 192.00 E/A: 1.40 E'Lateral: 13.30 E'Medial: 10.60 E/E' Med: 7.60 E/E' Lat: 6.10 PHT: 56.00 MVA PHT: 3.93 Decel Imperial: 4.19 Aortic Valve AoV Pk Roldan: 1.09 AoV Mn Roldan: 0.77 AoV VTI: 0.25 AoV Pk Grad: 5.00 Aov Mn Grad: 3.00 IONA Cont.VTI: 3.28 LVOT LVOT Pk Roldan: 0.83 LVOT Mn Roldan: 0.55 LVOT VTI: 0.20 LVOT Pk Grad: 3.00 LVOT Mn Grad: 1.00 LVOT Diam: 2.30 LVOT Area: 4.15 Diastolic Function MV Pk E: 0.81 MV Pk A: 0.56 E/A: 1.40 E'Medial: 10.60 E/E' Med: 7.60 E' Laterial: 13.30 E/E' Lat: 6.10 Right Ventricle TAPSE (mm): 23.80 TVS' Roldan: 13.20 Tricuspid Valve TR Pk Roldan: 2.22 TR Pk Grad: 20.00 RA Press: 3.00 RVSP: 23.00 Great Vessels Aorta Sinus of Valsalva: 3.38 2.0-3.5 cm Ao Asc: 3.30 2.1-3.4 cm Updated in Other Vendor System with Status of Final El Davis MD electronically signed on 06/22/2023 8:02:34 AM with status of Final
--- NOTE | 2023-06-20 09:48 | HM_ITS ---
Conclusion: 1. Patient was monitored for total period of 7 days and 23 hours 2. Baseline was normal sinus rhythm with average heart of 73 beats per minute 3. No significant arrhythmias or pauses noted 4. Patient reported 1 event that fell out of the monitoring time MTDD
== END ==
LOC: HO.CARD 09:46
PROVIDERS: PCP Family Medicine; Visit Provider Internal Medicine
DX: R00.2 Palpitations (principal); R06.02 Shortness of breath
CPT/HCPCS: 93242; 93306; 93356

== ENCOUNTER 2023-08-21 14:26 | Outpatient (AMB) | payer MEDICARE, SELFPAY ==
[2023-08-21 14:29] VITALS: BP 100/62; PULSE 73
--- NOTE | 2023-08-21 14:29 | A.OFFVIS_ITS ---
Intake Vital Signs 08/21/23 14:29 Height 5 ft 2 in Weight 164 lb 0.383 oz BMI 30.0 BP 100/62 Blood Pressure Location Lt brachial Position Sitting Pulse 73 Pulse Source Pulse Oximeter Intake Visit Reasons: f/up echo/ holter HS (rs) Allergies Latex, Natural Rubber [LATEX, NATURAL RUBBER] Allergy (Intermediate, Verified 08/21/23 14:31) RASH, HIVES buspirone Adverse Reaction (Unknown, Verified 08/21/23 14:31) chest heaviness, increased anxiety hydrocodone acetaminophen Allergy (Mild, Uncoded 08/21/23 14:31) sick Mirtazapine Adverse Reaction (Unknown, Uncoded 08/21/23 14:31) extreme somnolence Medication List - Last Reconciled 08/21/23 by JEFE Shore acetaminophen (Tylenol Extra Strength) 1,000 mg PO Q6H PRN atorvastatin 10 mg PO BEDTIME 90 days bupropion HCl 75mg AM & 37.5mg PM orally 2 times a day; 90 days cholecalciferol (vitamin D3) 50 mcg (2 x 25 mcg (1,000 unit)) PO DAILY 30 days fluoride (sodium) 1.1% (Denta 5000 Plus) appl PO BEDTIME lorazepam 0.5 mg PO Q12H PRN 30 days magnesium L-threonate mg PO meclizine 25 mg PO BID PRN 30 days melatonin 12 mg PO BEDTIME PRN nadide (bulk) 100% (Nicotinamide Adenine Dinucleotide (NAD)) IV therapy. omeprazole 20 mg PO DAILY PRN 90 days paroxetine HCl 20 mg PO DAILY 30 days HPI f/up echo/ holter HS (rs) HPI Details Lori is a 58-year-old female with past medical history of lupus, fibromyalgia, subarachnoid hemorrhage who was recently evaluated for shortness of breath and chest discomfort. She underwent a Holter monitor, echocardiogram and stress test and now presents for follow-up. Today she reports that she does have some shortness of breath with activity. She describes that she had been mostly sedentary over the last several months as she had the neurological event last summer. She has been slowly increasing her physical activity. She will get random pains in the chest region but no chest discomfort brought on by exertion. She will feel occasional fluttering in her chest but no sustained rapid or irregular heart rates noted. No presyncope, syncope, falls. No PND, orthopnea or edema. Takes all meds as directed. [facility] Medical History Lupus Hernia History of hiatal hernia Depression Gastroesophageal reflux disease Chronic GERD Fibromyalgia Surgical History History of repair of hiatal hernia History of nasal surgery Family History Mother Diabetes Rheumatoid arthritis Father Lung cancer Sister Rheumatoid arthritis Family/Other Lupus Social History Household Members: Family Housing: Apartment Do you presently have visiting nurse or other home services: No Alcohol intake: current Alcohol intake frequency: holidays/special occasions only Comment: sleeping Patient Tobacco Use Status: Former Tobacco user e-Cigarette/Vaping Use: Never Used Second Hand Smoke Exposure: No Substance Use Type: Marijuana service: No Current occupational status: unemployed Current occupational exposures/hazards: No Sexual orientation: Straight/Heterosexual Cognitive needs: No Hearing needs: No Vision needs: No Female Reproductive History Menstrual Age of Menarche: 11 Review of Systems Const All systems reviewed & are unremarkable except as noted in HPI and below ENT Denies dizziness and Denies throat swelling Card Denies chest pain, Denies chest pain at rest, Denies chest pain with activity, Denies rapid heart rate, Denies pedal edema, Denies edema, Denies leg edema, Denies lightheadedness, Denies palpitations, Denies dyspnea, Reports dyspnea on exertion and Denies orthopnea Resp Denies cough, Denies dyspnea and Reports dyspnea on exertion GI Denies hematochezia and Denies change in stool character Musc Denies abnormal gait, Denies limited range of motion, Denies muscle cramps, Denies muscle weakness, Denies numbness, Denies radiating pain into limb, Denies stiffness and Denies tingling Neuro Denies abnormal gait, Denies dizziness, Denies numbness and Denies tingling Endo Denies palpitations Aller/Immun Denies throat swelling Physical Exam Vital Signs: Last Vital Signs Pulse 73 08/21/23 14:29 BP 100/62 08/21/23 14:29 BMI result Body Mass Index 30.0 Const General: cooperative, healthy appearing, comfortable and no acute distress Orientation/consciousness: patient oriented x3 Neck Neck: Yes normal visual inspection and Yes no JVD Resp Effort & Inspection: normal respiratory effort Auscultation: clear to auscultation bilaterally, no crackles, no rales, no rhonchi and no wheezes Cardio Jugular venous distension: no JVD Rate: regular rate Rhythm: regular rhythm Heart sounds: S1 normal heart sound present, S2 normal heart sound present, no murmurs and no rubs Neuro General: patient oriented x3 Extrem General: Yes normal to inspection, No no pedal edema and No calf tenderness Psych Appearance: grossly normal Mental Status: mental status grossly normal Speech and movement: Normal speech and movement present Assessment & Plan Assessment & Plan (1) SOB (shortness of breath): Code(s): R06.02 - Shortness of breath Plan: Reports of shortness of breath with exertional activity. Cardiac risk factors obesity and sedentary. Exercise stress test done on 04/30/2023 showed exercise 7 minutes with mild shortness of breath, no chest discomfort, no EKG changes of ischemia. An echocardiogram was done on 06/20/2023 showing EF 60%, no valve abnormalities and no regional wall motion abnormalities. Holter monitor done on 06/20/2023 for 8 days showed sinus rhythm with average heart rate 73. Test results reviewed with her in detail. She feels her symptom may be related to deconditioning. She has been mostly sedentary for the last 9 months since her subarachnoid hemorrhage. She has been increasing her activity as tolerated. No cardiac findings that contribute to her shortness of breath symptom. Cardiology follow-up p.r.n.. (2) Precordial chest pain: Code(s): R07.2 - Precordial pain Plan: Tests as above. No exertional chest discomfort. Plan Time spent on documentation, interview, assessment, chart review. Coding Level of Care Code Est Pt Level 3 (53296) Diagnoses SOB (shortness of breath) R06.02 Precordial chest pain R07.2 Time Spent (min) 24
== END 2023-08-21 15:17 | disposition home or self-care (01) ==
PROVIDERS: PCP Family Medicine; Visit Provider Nurse Practitioner Family
DX: R06.02 Shortness of breath (principal); R07.2 Precordial pain
CPT/HCPCS: 99213

== ENCOUNTER → 2023-08-21 14:26 | Outpatient (BNVA) | payer MEDICARE, SELFPAY | PROVIDERS: PCP Family Medicine; Visit Provider Nurse Practitioner Family | DX: R06.02 Shortness of breath (principal); R07.2 Precordial pain | CPT/HCPCS: 99212 ==

== ENCOUNTER 2023-08-22 09:25 | Outpatient (AMB) | payer MEDICARE, SELFPAY ==
[2023-08-22 09:27] VITALS: BP 112/64; PULSE 77; O2SAT 96
--- NOTE | 2023-08-22 09:27 | MHC.PC.OV ---
Vital Signs 08/22/23 09:27 Height 5 ft 2 in Weight 164 lb BMI 30.0 BP 112/64 Blood Pressure Location Lt brachial Position Sitting Pulse 77 Pulse Source Pulse Oximeter Pulse Oximetry (%) 96 Oxygen Delivery Method Room Air Intake Visit Reasons: f/u chronic conditions Intake Note: Patient is here to follow up on chronic conditions. Allergies Latex, Natural Rubber [LATEX, NATURAL RUBBER] Allergy (Intermediate, Verified 08/22/23 09:30) RASH, HIVES buspirone Adverse Reaction (Unknown, Verified 08/22/23 09:30) chest heaviness, increased anxiety pseudoephedrine Adverse Reaction (Unknown, Verified 08/22/23 09:33) unknown hydrocodone acetaminophen Allergy (Mild, Uncoded 08/22/23 09:30) sick Mirtazapine Adverse Reaction (Unknown, Uncoded 08/22/23 09:30) extreme somnolence Medication List - Last Reconciled 08/22/23 by Nathaniel Eckert MD acetaminophen (Tylenol Extra Strength) 1,000 mg PO Q6H PRN atorvastatin 10 mg PO BEDTIME 90 days bupropion HCl 75mg AM & 37.5mg PM orally 2 times a day; 90 days cholecalciferol (vitamin D3) 50 mcg (2 x 25 mcg (1,000 unit)) PO DAILY 30 days fluoride (sodium) 1.1% (Denta 5000 Plus) appl PO BEDTIME lorazepam 0.5 mg PO Q12H PRN 30 days magnesium L-threonate mg PO meclizine 25 mg PO BID PRN 30 days melatonin 12 mg PO BEDTIME PRN melatonin 12 mg PO BEDTIME PRN nadide (bulk) 100% (Nicotinamide Adenine Dinucleotide (NAD)) IV therapy. omeprazole 20 mg PO DAILY PRN 90 days paroxetine HCl 20 mg PO DAILY 30 days prednisolone acetate 1% drps ophthalmic (eye) Tobacco use date assessed: 08/22/23 Dental Screening Dental Screen Date: 08/22/23 Did you have a dental visit in the last 12 months?: Yes Did you have a dental problem in the last 6 months where you did not have access to dental care?: No Was dental information given to patient?: Patient has dentist HPI f/u chronic conditions HPI Details 58 y/o female presents to f/u chronic conditions such as anxiety/depression. Had last seen [facility] 08/21/23 for shortness of breath and chest discomfort. Had underwent a holter monitor, echocardiogram and stress test. Per note, no cardiac findings that could contribute to her shortness of breath symptom. No exertional chest discomfort. She states she does have a therapist but is still struggling to get a psychiatrist. [facility] Medical History Lupus Hernia History of hiatal hernia Depression Gastroesophageal reflux disease Chronic GERD Fibromyalgia Surgical History History of repair of hiatal hernia History of nasal surgery Family History Mother Diabetes Rheumatoid arthritis Father Lung cancer Sister Rheumatoid arthritis Family/Other Lupus Social History Household Members: Family Housing: House Do you presently have visiting nurse or other home services: No Alcohol intake: current Alcohol intake frequency: holidays/special occasions only Comment: sleeping Patient Tobacco Use Status: Former Tobacco user e-Cigarette/Vaping Use: Never Used Second Hand Smoke Exposure: No Substance Use Type: Marijuana service: No Current occupational status: disabled Current occupational exposures/hazards: No Sexual orientation: Straight/Heterosexual Cognitive needs: No Hearing needs: No Vision needs: No Female Reproductive History Menstrual Age of Menarche: 11 Questionnaire PHQ-9 Over the last 2 weeks, how often have you been bothered by any of the following problems? 1. Little interest or pleasure in doing things: not at all 2. Feeling down, depressed, or hopeless: not at all 3. Trouble falling or staying asleep, or sleeping too much: not at all 4. Feeling tired or having little energy: not at all 5. Poor appetite or overeating: not at all 6. Feeling bad about yourself - or that you are a failure or have let yourself or your family down: not at all 7. Trouble concentrating on things, such as reading the newspaper or watching television: not at all 8. Moving or speaking so slowly that other people could have noticed. Or the opposite - being so fidgety or restless that you have been moving around a lot more than usual: not at all 9. Thoughts that you would be better off or of hurting yourself in some way: not at all Total score: 0 Depression Screening Interpretation: Negative Depression Screening Done: Yes 00737 - PHQ-9 Billing: Yes Source: Developed by Drs. Wil Sharma, Lios Delcid, Smooth Timmons and colleagues, with an educational hali from [employer]. Thrive Questionnaire Date Thrive assessed: 08/22/23 OLESYA-7 AMB Questionnaire OLESYA-7 Date OLESYA - 7 assessed: 08/22/23 Feeling nervous, anxious, or on edge: 2 = More than half the days Not being able to stop or control worryin = More than half the days Worrying too much about different things: 0 = Not at all Trouble relaxin = Several days Being so restless that it is hard to sit still: 0 = Not at all Becoming easily annoyed or irritable: 1 = Several days Feeling afraid as if something awful might happen: 2 = More than half the days Total OLESYA-7 score (0-4 normal; 5-9 mild; 10-14 moderate; 15-21 severe): 8 Source: Developed by Drs. Wil Sharma, Lois Delcid, Smooth Timmons and colleagues, with an educational hali from [employer]. OLESYA-7 Assessment Billing OLESYA-7 Assessment Tool: OLESYA-7 Assessment [id number] Review of Systems Const Denies chills, Denies fatigue, Denies fever(s), Denies headache(s) and Denies weakness ENT Denies dizziness and Denies headache(s) Card Denies dyspnea Resp Denies cough, Denies dyspnea, Denies wheezing and Denies other (shortness of breath) Musc Denies numbness and Denies tingling Neuro Denies dizziness, Denies headache(s), Denies numbness, Denies tingling and Denies weakness Psych Reports anxiety and Reports depression Endo Denies fatigue Aller/Immun Denies wheezing Physical exam (Primary Care) Vital Signs: Last Vital Signs Pulse 77 08/22/23 09:27 BP 112/64 08/22/23 09:27 Pulse Ox 96 08/22/23 09:27 Oxygen Delivery Method Room Air 08/22/23 09:27 BMI result Body Mass Index 30.0 Tobacco/Smoking Status: Tobacco use Status Tobacco use date assessed 08/22/23 08/22/23 09:46 Patient Tobacco Use Status Former Tobacco user 08/22/23 09:46 e-Cigarette/Vaping Use Never Used 08/22/23 09:46 PHQ-9: PHQ-9 Score PHQ-9: Total score 0 08/22/23 09:46 Depression Screening Interpretation: Negative Thrive Assessment: Date of Thrive Assessment Date Thrive assessed 08/22/23 08/22/23 09:46 Const General: well developed; No acute distress Nutritional Appearance: well nourished Orientation/consciousness: patient oriented x3 HENMT Head: Yes normocephalic and Yes atraumatic Eyes General: appearance normal, both eyes and all related structures Pupils: Equal, round and reactive pupils present EOM: EOMs intact bilaterally Resp Effort & Inspection: normal respiratory effort Auscultation: clear to auscultation bilaterally Cardio Rate: regular rate Rhythm: regular rhythm Heart sounds: S1 normal heart sound present, S2 normal heart sound present, no gallops, no murmurs and no rubs Neuro General: patient oriented x3 and gait normal Cranial nerves: Yes Equal, round and reactive pupils present Psych Affect: normal affect Assessment and Plan Assessment & Plan (1) Depression with anxiety: Code(s): F41.8 - Other specified anxiety disorders Plan: Controlled. Continue?paroxetine,?bupropion?and?lorazepam?as?prescribed Can?use?melatonin?for?sleep-advised?med?holidays Follow-up?with?therapist?and?keep?working?at?getting?a?psychiatrist (2) SOB (shortness of breath): Code(s): R06.02 - Shortness of breath Plan: Extensive?cardiac?workup?does?not?show?any?underlying?cardiac?cause?for?her?shortness?of?breath?or?chest?discomfort. Likely?some?costochondritis?and?deconditioning. Encouraged?exercise (3) Precordial chest pain: Code(s): R07.2 - Precordial pain Plan: As?above (4) Gastroesophageal reflux disease: Code(s): K21.9 - Gastro-esophageal reflux disease without esophagitis Plan: Has?omeprazole?and?I?encouraged?her?to?use?this?a?little?more?frequently. If?symptoms?persist,?will?refer?her?to?GI Orders: Orders Lipid Panel Today Z00.00 - Encounter for general adult medical examination without abnormal findings Microalbumin, Random (w Creat) Today I10 - Essential (primary) hypertension Vitamin D 25-OH Total Today E55.9 - Vitamin D deficiency, unspecified Comprehensive [place]. Panel Fast Today Z00.00 - Encounter for general adult medical examination without abnormal findings TSH reflex Free T4 Today Z00.00 - Encounter for general adult medical examination without abnormal findings UA and rflx microscopic Today Z00.00 - Encounter for general adult medical examination without abnormal findings Medications: New fluticasone propionate 50 mcg/actuation (Flonase Allergy Relief) administer into each nostril 1 spray intranasal Q12H 30 days 16 grams 2RF cetirizine (All Day Allergy (cetirizine)) 10 mg PO DAILY 90 days PRN 90 tabs 2RF allergy symptoms Coding Level of Care Code Est Pt Level 4 (76236) Diagnoses Depression with anxiety F41.8 SOB (shortness of breath) R06.02 Precordial chest pain R07.2 Gastroesophageal reflux disease K21.9 Additional Codes OLESYA-7 Assessment Billing - OLESYA-7 Assessment Tool: OLESYA-7 Assessment [id number] ([id number])
== END 2023-08-22 10:17 | disposition home or self-care (01) ==
PROVIDERS: PCP Family Medicine; Visit Provider Family Medicine
DX: R06.02 Shortness of breath (principal); F41.8 Other specified anxiety disorders; R07.2 Precordial pain; K21.9 Gastro-esophageal reflux disease without esophagitis
CPT/HCPCS: 99214

== ENCOUNTER 2023-09-11 14:20 | Outpatient (AMB) | payer MEDICARE, SELFPAY ==
--- NOTE | 2023-09-11 14:24 | A.OFFVIS_ITS ---
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 Turbinated Bone Grinder: Turbinated Bone Grinder Present (Maria Luz) Allergies Latex, Natural Rubber [LATEX, NATURAL RUBBER] Allergy (Intermediate, Verified 09/11/23 14:25) RASH, HIVES buspirone Adverse Reaction (Unknown, Verified 09/11/23 14:25) chest heaviness, increased anxiety pseudoephedrine Adverse Reaction (Unknown, Verified 09/11/23 14:25) unknown hydrocodone acetaminophen Allergy (Mild, Uncoded 08/22/23 09:30) sick Mirtazapine Adverse Reaction (Unknown, Uncoded 08/22/23 09:30) extreme somnolence HPI Comments Details: She is a postmenopausal woman presenting for her annual gynecological assistant examination. She is doing well with no concerns. History of brain aneurysm last year, has memory issues. She feels a twinge in her pelvis at times, unsure if it is the Essure device, had 1 of the coils removed in the past. Two cycles in the year, occasional hot flashes. Attempting to eat a healthy diet. Currently sexually active. Denies any vaginal dryness or irritation. STI testing offered; she declines. Last pap smear; 2021. Last mammogram; 2022. Colonoscopy is UTD. Denies any family history of breast, ovarian or colon cancer. [facility] Medical History Brain aneurysm Depression with anxiety Subarachnoid hemorrhage Lupus Hernia History of hiatal hernia Depression Gastroesophageal reflux disease Chronic GERD Fibromyalgia Surgical History History of repair of hiatal hernia History of nasal surgery Family History Mother Diabetes Rheumatoid arthritis Father Lung cancer Sister Rheumatoid arthritis Family/Other Lupus Social History Household Members: Family Housing: House Do you presently have visiting nurse or other home services: No Alcohol intake: current Alcohol intake frequency: holidays/special occasions only Comment: sleeping Patient Tobacco Use Status: Former Tobacco user e-Cigarette/Vaping Use: Never Used Second Hand Smoke Exposure: No Substance Use Type: Marijuana service: No Current occupational status: disabled Current occupational exposures/hazards: No Sexual orientation: Straight/Heterosexual Cognitive needs: No Hearing needs: No Vision needs: No Female Reproductive History Menstrual Age of Menarche: 11 Total pregnancies: 4 Full term: 2 Number of Living Children: 2 Ab spontaneous: 2 Date of last pap smear: 05/24/21 (neg pap and hpv) Date of Mammogram: 09/26/22 (Birad 2) Review of Systems Const All systems reviewed & are unremarkable except as noted in HPI and below Reports as per HPI Eyes Reports no additional complaints ENT Reports no additional complaints Card Reports no additional complaints Resp Reports no additional complaints GI Reports as per HPI and Reports no additional complaints Reports as per HPI Musc Reports no additional complaints Skin/Breast Reports as per HPI Neuro Reports no additional complaints Psych Reports no additional complaints Endo Reports no additional complaints Dylan/Lymph Reports no additional complaints Aller/Immun Reports no additional complaints Physical Exam Vital Signs: Last Vital Signs BP 124/78 09/11/23 14:25 BMI result Body Mass Index 30.0 Const General: cooperative, healthy appearing, no acute distress, well developed and alert Orientation/consciousness: patient oriented x3 HEENT Head: Yes normal to inspection Eyes General: appearance normal, both eyes and all related structures Neck Neck: Yes normal visual inspection Thyroid: Thyroid normal Chest Other: Breast lump left side 12 o'clock position Chest palpation & inspection: normal inspection of the chest and other (no p uckering, dimpling, peau de orange, retraction, discharge, masses) Breast/axilla inspection: normal inspection of the breasts Breast/axilla palpation: normal palpation of the breasts Resp Effort & Inspection: normal respiratory effort GI Inspection: Yes normal to inspection Palpation (GI): Soft to palpation Rectal Exam - Female: deferred General: Yes bladder normal to palpation External Female Exam: normal external appearance and normal appearance of the urethra Speculum Exam - Vagina: normal appearance of the vagina, normal palpation and normal vaginal discharge Speculum Exam - Cervix: normal appearance of the cervix and normal palpation Bimanual exam- vagina & uterus: normal bimanual exam, normal palpation, uterine size normal, bladder normal to palpation, normal palpation and non-tender Bimanual Exam- Adnexa, other: no masses Skin General skin exam: no rashes or lesions noted Rashes: no rashes Neuro General: patient oriented x3 Cognition (Neuro): normal cognition Extrem General: Yes normal to inspection Psych Attitude: cooperative Thought process: Normal thought process present Assessment & Plan Assessment & Plan (1) Encounter for well woman exam with routine gynecological exam: Code(s): Z01.419 - Encounter for gynecological examination (general) (routine) without abnormal findings Category: Medical Plan: Discussed: Current recommendations for pap smears per ASCCP guidelines. Breast awareness, periodic self breast exams and yearly mammogram. Maintain a healthy lifestyle, well balanced diet including Calcium 1,200 mg and Vitamin D 600 IU daily, and routine exercise. Plan breast ultrasound diagnostic mammogram known breast cyst at the left breast 12 o'clock position. FSH. Ultrasound of the pelvis check Essure device positioning, return to the office for follow up plan possible EMB, ECC, Pap, GC chlamydia, and BV panel-this workup was not obtained today due to the lack of information provided at the initial visit interview, information disclosed at the end of the visit. Patient is agreeable to the plan of care returning. Patient verbalizes understanding and agrees to the plan of care. She was given opportunity to ask questions and all questions were answered to the best of my ability. RTO in 1 year for annual gynecological assistant exam. This note is constructed using voice recognition software. While every effort has been made to ensure accuracy, plaster foreman errors may have been included. Orders: Orders MM tomosynthesis screening BI Today Z12.31 - Encounter for screening mammogram for malignant neoplasm of breast MM tomosynthesis diagnostic BI Today N60.02 - Solitary cyst of left breast, Z12.31 - Encounter for screening mammogram for malignant neoplasm of breast US breast LT complete Today N60.02 - Solitary cyst of left breast US pelvic and transvaginal Today R10.2 - Pelvic and perineal pain Follicle Stimulating Hormone Today R23.2 - [place] Coding Level of Care Code Est Pt Prev Care 40-64y(02246) Diagnoses Encounter for well woman exam with routine gynecological exam Z01.419
[2023-09-11 14:25] VITALS: BP 124/78
== END 2023-09-11 15:50 | disposition home or self-care (01) ==
PROVIDERS: PCP Family Medicine; Visit Provider Advanced Practice Midwife
DX: Z01.419 Encounter for gynecological examination (general) (routine) without abnormal findings (principal)
CPT/HCPCS: G0101

== ENCOUNTER → 2023-09-11 14:20 | Outpatient (BNVA) | payer MEDICARE, SELFPAY | PROVIDERS: PCP Family Medicine; Visit Provider Advanced Practice Midwife | DX: Z01.419 Encounter for gynecological examination (general) (routine) without abnormal findings (principal) | CPT/HCPCS: G0101 ==

== ENCOUNTER 2023-09-18 13:06 | Outpatient (REF) | payer MEDICARE, SELFPAY ==
--- NOTE | ~2023-09-18 | US_ITS ---
EXAMINATION: US PELVIS COMPLETE CLINICAL INFORMATION: Additional Notes/Special Instructions Essure coil in place : COMPARISON: Pelvic ultrasound 06/08/2021 TECHNIQUE: Transabdominal and transvaginal imaging was performed. FINDINGS: The uterus is of normal size and echogenicity measuring 7.6 x 3.6 x 4.8 cm. Endometrium was not identified. Nabothian cysts in the cervix. Essure coils noted along the right and left cornua in appropriate alignment. Both ovaries are of normal size and echogenicity. The right measures 1.7 x 1.0 x 1.0 cm for a volume of 0.9 mL. The left measures 1.5 x 1.0 x 1.2 cm for a volume of 0.9 mL. There is no pelvic free fluid. US/US pelvic and transvaginal IMPRESSION: 1. Essure coils noted along the right and left cornua in appropriate alignment. 2. Endometrium was not identified.
== END 2023-09-18 13:07 | disposition home or self-care (01) ==
LOC: HO.US 13:06
PROVIDERS: PCP Family Medicine; Visit Provider Advanced Practice Midwife
DX: R10.2 Pelvic and perineal pain (principal)
CPT/HCPCS: 76830; 76856

== ENCOUNTER 2023-09-25 13:27 | Outpatient (REF) | payer MEDICARE, SELFPAY ==
--- NOTE | ~2023-09-25 | MM_ITS ---
EXAMINATION: MM SCREENING DIGITAL BREAST TOMOSYNTHESIS, BILATERAL CLINICAL INFORMATION: Screening. Asymptomatic. COMPARISON: Mammography: This study is compared with prior exams dating back to 2017. TECHNIQUE: Digital breast tomosynthesis is performed in both the craniocaudal and mediolateral oblique views along with computer-aided detection (CAD). Synthesized 2D images are generated from the tomosynthesis. FINDINGS: The breasts are heterogeneously dense, which may obscure small masses (ACR BI-RADS breast composition Category c). There are no significant masses, abnormal calcifications, or other abnormalities. There is a benign mass in the upper outer quadrant of the left breast which is now significantly smaller as compared to the 202 mammogram. This was shown to represent a complicated cyst. MM/MM tomosynthesis screening BI IMPRESSION: No mammographic evidence of malignancy. ASSESSMENT: BI-RADS BI-RADS 2 - Benign Findings RECOMMENDATION: Routine annual mammography screening. 1 year F/U This examination should not preclude the clinical evaluation of a suspicious palpable abnormality. This patient's information was entered into a reminder system with a target due date for their next mammogram.
== END 2023-09-25 13:28 | disposition home or self-care (01) ==
LOC: HO.MAMMO 13:27
PROVIDERS: PCP Advanced Practice Midwife; Visit Provider Advanced Practice Midwife
DX: Z12.31 Encounter for screening mammogram for malignant neoplasm of breast (principal)
CPT/HCPCS: 77063; 77067

== ENCOUNTER → 2023-09-25 13:30 | Outpatient (BNV) | payer MEDICARE, SELFPAY | PROVIDERS: PCP Advanced Practice Midwife; Visit Provider Radiology Diagnostic Radiology | DX: Z12.31 Encounter for screening mammogram for malignant neoplasm of breast (principal) | CPT/HCPCS: 77063; 77067 ==

== ENCOUNTER 2023-12-12 13:56 | Outpatient (AMB) | payer MEDICARE, SELFPAY ==
--- NOTE | 2023-12-12 14:16 | A.OFFPC_ITS ---
Vital Signs 12/12/23 14:26 Height 5 ft 2 in Weight 166 lb 8 oz BMI 30.4 BP 96/60 Blood Pressure Location Rt brachial Position Sitting Respiration 18 Pulse 71 Pulse Source Pulse Oximeter Temp 97.9 F Temp Source Oral Pulse Oximetry (%) 98 Oxygen Delivery Method Room Air Intake Visit Reasons: Extended exam with f/u labs and health maint. Intake Note: follow up on labs and patient states she was hospitalized for observation for a headache due to hx of brain aneurysm. Is last menstrual period known: Yes (x4 months ago) Post menopausal: No Patient : No Allergies Latex, Natural Rubber [LATEX, NATURAL RUBBER] Allergy (Intermediate, Verified 12/12/23 14:19) RASH, HIVES buspirone Adverse Reaction (Unknown, Verified 12/12/23 14:19) chest heaviness, increased anxiety pseudoephedrine Adverse Reaction (Unknown, Verified 12/12/23 14:19) unknown hydrocodone acetaminophen Allergy (Mild, Uncoded 08/22/23 09:30) sick Mirtazapine Adverse Reaction (Unknown, Uncoded 08/22/23 09:30) extreme somnolence Medication List - Last Reconciled 12/12/23 by Nathaniel Eckert MD acetaminophen (Tylenol Extra Strength) 1,000 mg PO Q6H PRN atorvastatin 10 mg PO BEDTIME 90 days bupropion HCl 75mg AM & 37.5mg PM orally 2 times a day; 90 days cetirizine (All Day Allergy (cetirizine)) 10 mg PO DAILY PRN 90 days cholecalciferol (vitamin D3) 50 mcg (2 x 25 mcg (1,000 unit)) PO DAILY 30 days fluticasone propionate 50 mcg/actuation (Flonase Allergy Relief) 1 spray intranasal Q12H 30 days lorazepam 0.5 mg PO Q12H PRN 30 days magnesium L-threonate mg PO meclizine 25 mg PO BID PRN 30 days melatonin 12 mg PO BEDTIME PRN melatonin 12 mg PO BEDTIME PRN nadide (bulk) 100% (Nicotinamide Adenine Dinucleotide (NAD)) IV therapy. omega-3 fatty acids 1,000 mg PO DAILY omeprazole 20 mg PO DAILY PRN 90 days paroxetine HCl 20 mg PO DAILY Tobacco use date assessed: 12/12/23 Dental Screening Dental Screen Date: 12/12/23 Did you have a dental visit in the last 12 months?: Yes Did you have a dental problem in the last 6 months where you did not have access to dental care?: No Was dental information given to patient?: Patient has dentist HPI Extended exam with f/u labs and health maint. HPI Details 58 y/o female presents for an extended e xam with f/u labs and health maintenance. No recent labs to review. Pt states she was in the hospital about a month ago for a significant headache/migraine. Headache has not returned. Last pap smear 2021. HPI Comments History of Present Illness Details Documentation assistance for Nathaniel Eckert MD, was provided by Dorian Wise,? Senior Supplier Quality Engineer on 12/12/2023 at 2:48 PM EST. I, Dr. Eckert, have read, observed, and verified documentation. [facility] Medical History (Updated 12/12/23 @ 14:48 by Dorian Wise) Contraception, device intrauterine Brain aneurysm Depression with anxiety Subarachnoid hemorrhage Lupus Hernia History of hiatal hernia Depression Gastroesophageal reflux disease Chronic GERD Fibromyalgia Surgical History History of repair of hiatal hernia History of nasal surgery Family History Mother Diabetes Rheumatoid arthritis Father Lung cancer Sister Rheumatoid arthritis Family/Other Lupus Social History Household Members: Family Housing: House Do you presently have visiting nurse or other home services: No Alcohol intake: current Alcohol intake frequency: holidays/special occasions only Comment: sleeping Patient Tobacco Use Status: Former Tobacco user e-Cigarette/Vaping Use: Never Used Second Hand Smoke Exposure: No Substance Use Type: Marijuana service: No Current occupational status: disabled Current occupational exposures/hazards: No Sexual orientation: Straight/Heterosexual Cognitive needs: No Hearing needs: No Vision needs: No Female Reproductive History Menstrual Age of Menarche: 11 Questionnaire PHQ-9 Over the last 2 weeks, how often have you been bothered by any of the following problems? 1. Little interest or pleasure in doing things: not at all 2. Feeling down, depressed, or hopeless: not at all 3. Trouble falling or staying asleep, or sleeping too much: nearly every day 4. Feeling tired or having little energy: several days 5. Poor appetite or overeating: not at all 6. Feeling bad about yourself - or that you are a failure or have let yourself or your family down: not at all 7. Trouble concentrating on things, such as reading the newspaper or watching television: not at all 8. Moving or speaking so slowly that other people could have noticed. Or the opposite - being so fidgety or restless that you have been moving around a lot more than usual: not at all 9. Thoughts that you would be better off or of hurting yourself in some way: not at all Total score: 4 Depression Screening Interpretation: Negative Depression Screening Done: Yes 36168 - PHQ-9 Billing: Yes Source: Developed by Drs. Wil Sharma, Lois Delcid, Smooth Timmons and colleagues, with an educational hali from [employer] Thrive Questionnaire Date Thrive assessed: 12/12/23 I am a: Patient What is your living situation today?: I do not have a steady places to live Within the past 12 months, did the food you bought not last and you didn't have the money to get more?: Never true Within the past 12 months, did you worry whether your food would run out before you got money to buy more?: Never true Do you have trouble paying for medicines?: No Do you have trouble getting transportation to medical appointments?: No Do you have trouble paying your heating and electricity bill?: No Do you have trouble taking care of your child, family member or friend?: No Do you have trouble with day-to-day activities such as bathing, preparing meals, shopping, managing finances, etc.?: No Are you currently unemployed and looking for a job?: No Are you interested in more education?: No Please select the resources that you would like help with: None Currently or been in a relationship where the following occur: No concerns reported THRIVE Score: 1 AUDIT C Alcohol Use Questionnaire (AUDIT-C) 1. How often do you have a drink containing alcohol?: Monthly or less 2. How many drinks containing alcohol do you have on a typical day when you are drinking?: 1 or 2 3. How often do you have six or more drinks on one occasion?: Less than monthly Total Score: 2 Score Reviewed/Action Taken: Yes OLESYA-7 AMB Questionnaire OLESYA-7 Date OLESYA - 7 assessed: 12/12/23 Feeling nervous, anxious, or on edge: 0 = Not at all Not being able to stop or control worryin = Not at all Worrying too much about different things: 3 = Nearly every day Trouble relaxin = Not at all Being so restless that it is hard to sit still: 0 = Not at all Becoming easily annoyed or irritable: 1 = Several days Feeling afraid as if something awful might happen: 0 = Not at all Total OLESYA-7 score (0-4 normal; 5-9 mild; 10-14 moderate; 15-21 severe): 4 Source: Developed by Drs. Wil Sharma, Lois Delcid, Smooth Timmons and colleagues, with an educational hali from [employer] OLESYA-7 Assessment Billing OLESYA-7 Assessment Tool: OLESYA-7 Assessment 44040 Review of Systems Const Denies chills, Denies fatigue, Denies fever(s), Denies headache(s) and Denies weakness Eyes Denies change in vision ENT Denies dizziness, Denies headache(s), Denies hearing loss, Denies nasal congestion, Denies sinus pain, Denies sinus pressure and Denies sore throat Card Denies chest pain, Denies lightheadedness, Denies dyspnea and Denies other ( palpitations) Resp Denies cough, Denies dyspnea and Denies wheezing GI Denies abdominal pain, Denies melena, Denies hematochezia, Denies change in bow el habits, Denies dyspepsia and Denies nausea Denies hematuria and Denies dysuria Musc Denies abnormal gait, Denies myalgias, Denies arthralgias, Denies numbness and Denies tingling Skin/Breast Denies rash, Denies unusual bruising and Denies wounds Neuro Denies abnormal gait, Denies dizziness, Denies headache(s), Denies memory loss, Denies numbness, Denies Sensory deficit (Neuro), Denies tingling and Denies weakness Psych Denies anxiety, Denies depression and Denies memory loss Endo Denies cold intolerance, Denies fatigue, Denies heat intolerance, Denies polydipsia and Denies polyuria Dylan/Lymph Denies easy bleeding and Denies easy bruising Aller/Immun Denies wheezing Physical exam (Primary Care) Vital Signs: Last Vital Signs Temp 97.9 F 12/12/23 14:26 Pulse 71 12/12/23 14:26 Resp 18 12/12/23 14:26 BP 96/60 12/12/23 14:26 Pulse Ox 98 12/12/23 14:26 Oxygen Delivery Method Room Air 12/12/23 14:26 BMI result Body Mass Index 30.4 Tobacco/Smoking Status: Tobacco use Status Tobacco use date assessed 12/12/23 12/12/23 14:31 Patient Tobacco Use Status Former Tobacco user 12/12/23 14:31 e-Cigarette/Vaping Use Never Used 12/12/23 14:31 PHQ-9: PHQ-9 Score PHQ-9: Total score 4 12/12/23 14:31 Depression Screening Interpretation: Negative Thrive Assessment: Date of Thrive Assessment Date Thrive assessed 12/12/23 12/12/23 14:31 Currently or been in a relationship where the following occur: No concerns reported Const General: no acute distress, well developed, alert and awake Nutritional Appearance: well nourished Orientation/consciousness: patient oriented x3 HENMT Head: Yes normocephalic and Yes atraumatic Ears: hearing grossly normal bilaterally and TM's normal bilaterally General nose exam: Normal external nose present and Normal nares present Mouth: Normal oral and palatal mucosa present and moist mucous membranes Teeth and gingiva: dentition normal Throat: Yes posterior oropharynx normal Eyes General: appearance normal, both eyes and all related structures Pupils: Equal, round and reactive pupils present and Pupil accommodation reflex normal EOM: EOMs intact bilaterally Neck Neck: Yes normal visual inspection, Yes no lymphadenopathy and Yes trachea midline Thyroid: Thyroid normal Carotids: no bruits Lymphatic: no lymphadenopathy noted Chest Chest palpation & inspection: normal inspection of the chest Resp Effort & Inspection: normal respiratory effort Auscultation: clear to auscultation bilaterally Cardio Rate: regular rate Rhythm: regular rhythm Heart sounds: S1 normal heart sound present, S2 normal heart sound present, no gallops, no murmurs and no rubs Bruits: no abdominal aortic bruits and no carotid bruits GI Palpation (GI): No Abdominal aortic bruit present, Soft to palpation, nontender, No hepatosplenomegaly present and No Rebound tenderness present Auscultation: normal bowel sounds General: Yes no CVA tenderness Back/Spine/Pelvis Back: no CVA tenderness Cervical Spine: cervical ROM normal and No Cervical spine tenderness Thoracic/Lumbar Spine: thoraco-lumbar ROM normal, No pain with thoraco-lumbar ROM, No thoracic spinal tenderness and No lumbar spinal tenderness Skin Lesions: no lesions Rashes: no rashes Trauma: no lacerations or abrasions Wounds: no wounds Nails: normal Neuro General: patient oriented x3 Cranial nerves: Yes Equal, round and reactive pupils present Cognition (Neuro): normal cognition Gait exam (Neuro): Normal gait present Motor exam (neuro): 5/5 motor strength present throughout Sensory Exam: No Sensory deficit (Neuro) Deep tendon reflexes (DTR's): Right patellar reflex intensity grade: 2+ and Left patellar reflex intensity grade: 2+ Extrem General: Yes normal to inspection and No edema Psych Appearance: grossly normal Affect: normal affect Attitude: cooperative Thought process: Normal thought process present Assessment and Plan Assessment & Plan (1) Migraine: Code(s): G43.909 - Migraine, unspecified, not intractable, without status migrainosus Plan: Followed?by?Neurology?and?was?given?Fioricet She?can?use?this?sparingly If?symptoms?are?becoming?more?frequent?she?should?follow-up?with?Neurology (2) Elevated LDL cholesterol level: Code(s): E78.00 - Pure hypercholesterolemia, unspecified Plan: She?is?on?atorvastatin.??Also?history?of?subarachnoid?hemorrhage. Check?lipid Continue?atorvastatin (3) Screening for colon cancer: Code(s): Z12.11 - Encounter for screening for malignant neoplasm of colon Plan: Patient?says?she?had?a ?colonoscopy?at[facility]about?4-5?years?ago?and?was?told?to?fol low-up?in?about?10?year Will?request?report (4) Breast cancer screening by mammogram: Code(s): Z12.31 - Encounter for screening mammogram for malignant neoplasm of breast Plan: Recent?mammogram?showed?benign?findings?and?recommended?annual?screen Up-to-date (5) Screening for cervical cancer: Code(s): Z12.4 - Encounter for screening for malignant neoplasm of cervix Plan: Last?Pap?smear?in?2021?and?followed?by?[facility]?infirmary attendant Follow-up?with?infirmary attendant?as?recommended (6) Adult general medical examination: Code(s): Z00.00 - Encounter for general adult medical examination without abnormal findings Plan: 58-year-old?female?presents?for?an?extended?exam Encouraged?healthy?diet?with?active?lifestyle?and?plenty?of?exercise Orders: Orders Comprehensive [place]. Panel Fast Today Z00.00 - Encounter for general adult medical examination without abnormal findings Lipid Panel Today Z00.00 - Encounter for general adult medical examination without abnormal findings TSH reflex Free T4 Today Z00.00 - Encounter for general adult medical examination without abnormal findings UA and rflx microscopic Today Z00.00 - Encounter for general adult medical examination without abnormal findings Complete Blood Count Auto Diff Today Z00.00 - Encounter for general adult medical examination without abnormal findings Microalbumin, Random (w Creat) Today I10 - Essential (primary) hypertension Medications: New ihjaphrvyw-[id number]-mpbs 50-300-40 mg (Fioricet) 1 cap PO Q8H 30 days PRN 10 caps 0RF pain Coding Level of Care Code Est Pt Level 4 (88110) Diagnoses Migraine G43.909 Elevated LDL cholesterol level E78.00 Screening for colon cancer Z12.11 Breast cancer screening by mammogram Z12.31 Screening for cervical cancer Z12.4 Adult general medical examination Z00.00 Additional Codes OLESYA-7 Assessment Billing - OLESYA-7 Assessment Tool: OLESYA-7 Assessment 01994 ([id number])
[2023-12-12 14:26] VITALS: BP 96/60; PULSE 71; RESP 18; TEMP 36.6; O2SAT 98; BMI 30.4
== END 2023-12-12 15:00 | disposition home or self-care (01) ==
PROVIDERS: PCP Family Medicine; Visit Provider Family Medicine
DX: G43.909 Migraine, unspecified, not intractable, without status migrainosus (principal); E78.00 Pure hypercholesterolemia, unspecified; Z12.11 Encounter for screening for malignant neoplasm of colon; Z12.31 Encounter for screening mammogram for malignant neoplasm of breast
CPT/HCPCS: 99214

== ENCOUNTER 2024-01-08 10:32 | Outpatient (REF) | payer MEDICARE, SELFPAY ==
[2024-01-08 14:13] LABS: MANUAL DIFF FLAG NO
[2024-01-08 14:22] LABS: Appearance Urine Turbid; Color Urine Dark Yellow; Glucose Urine UA Negative (Negative); Leukocyte Esterase Urine Small (1+) (Negative); Nitrite Urine Negative (Negative); PH 5.5 (5.0-9.0); Specific Gravity - Urine >= 1.030 (1.005-1.025); UMIC TRIGGER UA YES; Urine Blood Negative (Negative); Urine Ketones Trace mg/dL (Negative); Urine Protein 30 (1+) mg/dL (Neg-Trace)
[2024-01-08 14:25] LABS: Basophils Percent Auto 0.7 % (0-2); Hematocrit 38.5 % (37.0-47.0); Hemoglobin 12.7 g/dl (12.0-16.0); Lymphocytes Absolute Auto 1.4 X10*3/uL (1.2-4.9); Lymphocytes Percent Auto 33.2 % (20-40); Mean Corpuscular Hemoglobin 30.9 pg (27.0-33.0); Mean Corpuscular Volume 93.7 fL (80.0-98.0); Mean Platelet Volume 10.1 fL (9.4-12.3); Monocytes Absolute Auto 0.3 X10*3/uL (0.1-1.2); Neutrophils Absolute Auto 2.5 x10*3/uL (2.0-8.3); Neutrophils Percent Auto 59.1 % (45-73); Platelet Count 300 X10*3/uL (160-400); Red Blood Count 4.11 X10*6/uL (4.20-5.50); White Blood Count 4.3 X10*3/uL (4.8-10.8)
[2024-01-08 14:30] LABS: Bacteria Urine 3+ (None Seen); RBC Urine 0-2 /HPF (0-2); Squamous Epithelial Cell Urine >20 /HPF (0-2); WBC Urine 0-5 /HPF (0-5)
[2024-01-08 14:49] LABS: Alanine Aminotransferase 24 U/L (0-31); Albumin Level 4.5 g/dL (3.5-5.0); Alkaline Phosphatase 78 U/L (39-117); Anion Gap 12 (12-20); Aspartate Amino Transferase 21 U/L (5-31); Bilirubin Total 0.4 mg/dL (0.0-1.0); Blood Urea Nitrogen 11 mg/dL (9-16); Calcium 9.9 mg/dL (8.4-10.2); Carbon Dioxide 28 mmol/L (22-29); Chloride 106 mmol/L (96-108); Cholesterol 183 mg/dL (<200); Estimated Glomerular Filt Rate > 60; Glucose Fasting 103 mg/dL (60-99); HDL Cholesterol 73 mg/dL (>40); LDL Cholesterol Calculated 98 mg/dL (<100); Potassium 3.9 mmol/L (3.3-5.1); Sodium 142 mmol/L (135-145); Total Protein 7.2 g/dL (6.5-8.0); Triglycerides 63 mg/dL (<150)
[2024-01-08 14:49] LABS: Creatinine Urine 536.78 mg/dL; Microalbum/Creatinine Ratio Ur 5.2 ug/mg cr (<30)
[2024-01-08 15:05] LABS: TSH reflex Free T4 2.09 uIU/mL (0.32-4.0); Vitamin D 25-OH Total 53.6 ng/mL (>30)
[2024-01-09 17:58] LABS: Follicle Stimulating Hormone 106.1 mIU/mL
== END 2024-01-08 10:33 | disposition home or self-care (01) ==
LOC: HO.WFDLDS 10:32
PROVIDERS: Referring Provider Advanced Practice Midwife; Visit Provider Family Medicine
DX: Z00.00 Encounter for general adult medical examination without abnormal findings (principal); E55.9 Vitamin D deficiency, unspecified; I10 Essential (primary) hypertension; R23.2 Flushing; Z71.2 Person consulting for explanation of examination or test findings; Z96.89 Presence of other specified functional implants
CPT/HCPCS: 36415; 80053; 80061; 81001; 82043; 82306; 82570; 83001; 84443; 85025; 99212

== ENCOUNTER 2024-05-21 11:21 | Outpatient (REF) | payer MEDICARE, SELFPAY ==
[2024-05-21 12:16] LABS: Appearance Urine Cloudy; Color Urine Yellow; Glucose Urine UA Negative (Negative); Leukocyte Esterase Urine Small (1+) (Negative); Nitrite Urine Negative (Negative); Specific Gravity - Urine 1.025 (1.005-1.025); UMIC TRIGGER UA YES; Urine Blood Negative (Negative); Urine Ketones Trace mg/dL (Negative); Urine Protein Negative (Neg-Trace)
[2024-05-21 12:25] LABS: Bacteria Urine 4+ (None Seen); Hyaline Casts Urine 0-2 /LPF (0-2); RBC Urine 0-2 /HPF (0-2); Squamous Epithelial Cell Urine >20 /HPF (0-2)
[2024-05-21 12:43] LABS: Creatinine Urine 266.86 mg/dL; Microalbum/Creatinine Ratio Ur 5.9 ug/mg cr (<30)
[2024-05-21 12:53] LABS: Alanine Aminotransferase 49 U/L (0-31); Albumin Level 4.5 g/dL (3.5-5.0); Alkaline Phosphatase 100 U/L (39-117); Anion Gap 7 (12-20); Aspartate Amino Transferase 33 U/L (5-31); Bilirubin Total 0.4 mg/dL (0.0-1.0); Blood Urea Nitrogen 12 mg/dL (9-16); Calcium 9.6 mg/dL (8.4-10.2); Carbon Dioxide 31 mmol/L (22-29); Chloride 109 mmol/L (96-108); Cholesterol 163 mg/dL (<200); Estimated Glomerular Filt Rate > 60; Glucose Fasting 94 mg/dL (60-99); HDL Cholesterol 74 mg/dL (>40); LDL Cholesterol Calculated 80 mg/dL (<100); Potassium 4.2 mmol/L (3.3-5.1); Sodium 143 mmol/L (135-145); TSH reflex Free T4 1.12 uIU/mL (0.32-4.0); Total Protein 7.4 g/dL (6.5-8.0); Triglycerides 47 mg/dL (<150)
== END 2024-05-21 11:22 | disposition home or self-care (01) ==
LOC: HO.LAB 11:21
PROVIDERS: PCP Family Medicine; Visit Provider Family Medicine
DX: Z00.00 Encounter for general adult medical examination without abnormal findings (principal); I10 Essential (primary) hypertension
CPT/HCPCS: 36415; 80053; 80061; 81001; 81003; 82043; 82570; 84443

== ENCOUNTER 2024-05-25 10:25 | Outpatient (AMB) | payer MEDICARE, SELFPAY ==
--- NOTE | 2024-05-25 10:28 | A.OFFPC_ITS ---
Vital Signs 05/25/24 10:42 Height 5 ft 2 in Weight 166 lb 4 oz BMI 30.4 BP 110/64 Blood Pressure Location Lt brachial Position Sitting Respiration 16 Pulse 80 Pulse Source Pulse Oximeter Temp 98.2 F Temp Source Oral Pulse Oximetry (%) 98 Oxygen Delivery Method Room Air Intake Visit Reasons: F/u meds & labs Intake Note: follow up labs and med refill would like 3month supply Allergies Latex, Natural Rubber [LATEX, NATURAL RUBBER] Allergy (Intermediate, Verified 05/25/24 10:39) RASH, HIVES buspirone Adverse Reaction (Unknown, Verified 05/25/24 10:39) chest heaviness, increased anxiety pseudoephedrine Adverse Reaction (Unknown, Verified 05/25/24 10:39) unknown hydrocodone acetaminophen Allergy (Mild, Uncoded 08/22/23 09:30) sick Mirtazapine Adverse Reaction (Unknown, Uncoded 08/22/23 09:30) extreme somnolence Medication List - Last Reconciled 05/25/24 by Nathaniel Eckert MD acetaminophen (Tylenol Extra Strength) 1,000 mg PO Q6H PRN atorvastatin 10 mg PO BEDTIME 90 days bupropion HCl 75mg AM & 37.5mg PM orally 2 times a day; 90 days [id number]-[id number] 50-300-40 mg (Fioricet) 1 cap PO Q8H PRN 30 days cholecalciferol (vitamin D3) 50 mcg (2 x 25 mcg (1,000 unit)) PO DAILY 30 days fluticasone propionate 50 mcg/actuation (Flonase Allergy Relief) 1 spray intranasal Q12H 30 days lorazepam 0.5 mg PO Q12H PRN 30 days magnesium L-threonate mg PO meclizine 25 mg PO BID PRN 30 days melatonin 12 mg PO BEDTIME PRN nadide (bulk) 100% (Nicotinamide Adenine Dinucleotide (NAD)) IV therapy. omega-3 fatty acids 1,000 mg PO DAILY omeprazole 20 mg PO DAILY PRN 90 days paroxetine HCl 20 mg PO DAILY Tobacco use date assessed: 12/12/23 Dental Screening Dental Screen Date: 12/12/23 HPI F/u meds & labs HPI Details 59 y/o female presents to f/u meds, labs . Labs drawn 05/21/24. Reviewed labs with pt. Elevated liver enzymes. AST 33, ALT 49. Triglycerides 47. TC 163. LDL 80. HDL 74. [facility] Medical History (Updated 05/25/24 @ 11:14 by Dorian Wise) Contraception, device intrauterine Brain aneurysm Depression with anxiety Subarachnoid hemorrhage Lupus Hernia History of hiatal hernia Depression Gastroesophageal reflux disease Chronic GERD Fibromyalgia Surgical History History of repair of hiatal hernia History of nasal surgery Family History Mother Diabetes Rheumatoid arthritis Father Lung cancer Sister Rheumatoid arthritis Family/Other Lupus Social History Household Members: Family Housing: House Do you presently have visiting nurse or other home services: No Alcohol intake: current Alcohol intake frequency: holidays/special occasions only Comment: sleeping Patient Tobacco Use Status: Former Tobacco user e-Cigarette/Vaping Use: Never Used Second Hand Smoke Exposure: No Substance Use Type: Marijuana service: No Current occupational status: disabled Current occupational exposures/hazards: No Sexual orientation: Straight/Heterosexual Cognitive needs: No Hearing needs: No Vision needs: No Female Reproductive History Menstrual Age of Menarche: 11 Questionnaire PHQ-9 Over the last 2 weeks, how often have you been bothered by any of the following problems? 1. Little interest or pleasure in doing things: several days 2. Feeling down, depressed, or hopeless: several days 3. Trouble falling or staying asleep, or sleeping too much: several days 4. Feeling tired or having little energy: several days 5. Poor appetite or overeating: several days 6. Feeling bad about yourself - or that you are a failure or have let yourself or your family down: not at all 7. Trouble concentrating on things, such as reading the newspaper or watching television: not at all 8. Moving or speaking so slowly that other people could have noticed. Or the opposite - being so fidgety or restless that you have been moving around a lot more than usual: nearly every day 9. Thoughts that you would be better off or of hurting yourself in some way: not at all Total score: 8 Source: Developed by Drs. Wil L. ZacharyLois bingham, Smooth Timmons and colleagues, with an educational hali from [employer]. Thrive Questionnaire Date Thrive assessed: 12/12/23 I am a: Patient What is your living situation today?: I do not have a steady places to live I am temporarily staying with others Within the past 12 months, did the food you bought not last and you didn't have the money to get more?: Never true Within the past 12 months, did you worry whether your food would run out before you got money to buy more?: Never true Do you have trouble paying for medicines?: No Do you have trouble getting transportation to medical appointments?: No Do you have trouble paying your heating and electricity bill?: I choose not to answer this question Do you have trouble taking care of your child, family member or friend?: I choose not to answer this question Do you have trouble with day-to-day activities such as bathing, preparing meals, shopping, managing finances, etc.?: Yes Are you currently unemployed and looking for a job?: No Are you interested in more education?: No Please select the resources that you would like help with: None Currently or been in a relationship where the following occur: No concerns reported THRIVE Score: 1 AUDIT C Alcohol Use Questionnaire (AUDIT-C) 1. How often do you have a drink containing alcohol?: Monthly or less 2. How many drinks containing alcohol do you have on a typical day when you are drinking?: 1 or 2 3. How often do you have six or more drinks on one occasion?: Never Total Score: 1 OLESYA-7 AMB Questionnaire OLESYA-7 Date OLESYA - 7 assessed: 12/12/23 Feeling nervous, anxious, or on edge: 3 = Nearly every day Not being able to stop or control worryin = Nearly every day Worrying too much about different things: 3 = Nearly every day Trouble relaxin = Nearly every day Being so restless that it is hard to sit still: 2 = More than half the days Becoming easily annoyed or irritable: 2 = More than half the days Feeling afraid as if something awful might happen: 1 = Several days Total OLESYA-7 score (0-4 normal; 5-9 mild; 10-14 moderate; 15-21 severe): 17 Source: Developed by Lois Alexander B.W. Bhavin, Smooth Timmons and colleagues, with an educational hali from [employer]. Review of Systems Const Denies chills, Denies fatigue, Denies fever(s), Denies headache(s) and Denies weakness ENT Denies dizziness and Denies headache(s) Card Denies chest pain, Denies lightheadedness, Denies dyspnea and Denies other (Palpitations) Resp Denies cough, Denies dyspnea, Denies wheezing and Denies other ( shortness of breath) Musc Denies numbness and Denies tingling Neuro Denies dizziness, Denies headache(s), Denies numbness, Denies tingling, Denies paresthesias and Denies weakness Psych Denies anxiety and Denies depression Endo Denies fatigue Aller/Immun Denies wheezing Physical exam (Primary Care) Vital Signs: Last Vital Signs Temp 98.2 F 05/25/24 10:42 Pulse 80 05/25/24 10:42 Resp 16 05/25/24 10:42 BP 110/64 05/25/24 10:42 Pulse Ox 98 05/25/24 10:42 Oxygen Delivery Method Room Air 05/25/24 10:42 BMI result Body Mass Index 30.4 Tobacco/Smoking Status: Tobacco use Status Tobacco use date assessed 12/12/23 05/25/24 10:30 Patient Tobacco Use Status Former Tobacco user 05/25/24 10:30 e-Cigarette/Vaping Use Never Used 05/25/24 10:30 PHQ-9: PHQ-9 Score PHQ-9: Total score 8 05/25/24 10:30 Thrive Assessment: Date of Thrive Assessment Date Thrive assessed 12/12/23 05/25/24 10:30 Currently or been in a relationship where the following occur: No concerns reported Const General: no acute distress and well developed Nutritional Appearance: well nourished Orientation/consciousness: patient oriented x3 HENMT Head: Yes normocephalic and Yes atraumatic Eyes General: appearance normal, both eyes and all related structures Pupils: Equal, round and reactive pupils present EOM: EOMs intact bilaterally Resp Effort & Inspection: normal respiratory effort Auscultation: clear to auscultation bilaterally Cardio Rate: regular rate Rhythm: regular rhythm Heart sounds: S1 normal heart sound present, S2 normal heart sound present, no gallops, no murmurs and no rubs Neuro General: patient oriented x3 and gait normal Cranial nerves: Yes Equal, round and reactive pupils present Psych Affect: normal affect Coding Level of Care Code Est Pt Level 4 (05222) Diagnoses Depression with anxiety F41.8 Migraine G43.909 Elevated liver enzymes R74.8 History of subarachnoid hemorrhage Z86.79 Elevated LDL cholesterol level E78.00 Assessment & Plan Assessment & Plan (1) Depression with anxiety: Code(s): F41.8 - Other specified anxiety disorders Category: Medical Plan: Doing?well?on?current?medication?regimen No?changes?to?her?medications?today (2) Migraine: Code(s): G43.909 - Migraine, unspecified, not intractable, without status migrainosus Category: Medical Plan: Managed?with?occasional?use?of?Fioricet. Using?as?prescribed Continue?current?medications (3) Elevated liver enzymes: Code(s): R74.8 - Abnormal levels of other serum enzymes Category: Medical Plan: Mildly?elevated?liver?enzymes Encouraged?good?hydration,?weight?loss Watch?Tylenol?and?alcohol Recheck?liver?enzymes?next?blood?draw (4) History of subarachnoid hemorrhage: Code(s): Z86.79 - Personal history of other diseases of the circulatory system Category: Medical Plan: History?subarachnoid?hemorrhage?history?of?LDL?cholesterol?elevation Controlled?blood?pressure?and?lipids. (5) Elevated LDL cholesterol level: Code(s): E78.00 - Pure hypercholesterolemia, unspecified Category: Medical Plan: Taking?atorvastatin?10?mg?daily?as?prescribed Cholesterol?levels?peer?fairly?well?controlled. LDL?choles terol?was?more?previously?in?encouraged?diet?lower?in?saturated?fats?and?cholest vee.??No?change?medications?today. Will?continue?monitor. Continue?atorvastatin?as?prescribed Orders: Orders Comprehensive [place]. Panel Fast Today R74.8 - Abnormal levels of other serum enzymes, Z00.00 - Encounter for general adult medical examination without abnormal findings Lipid Panel Today E78.00 - Pure hypercholesterolemia, unspecified, Z00.00 - Encounter for general adult medical examination without abnormal findings Hemoglobin A1c Today R73.01 - Impaired fasting glucose
[2024-05-25 10:42] VITALS: BP 110/64; PULSE 80; RESP 16; TEMP 36.8; O2SAT 98; BMI 30.4
== END 2024-05-25 11:12 | disposition home or self-care (01) ==
PROVIDERS: PCP Family Medicine; Visit Provider Family Medicine
DX: F41.8 Other specified anxiety disorders (principal); G43.909 Migraine, unspecified, not intractable, without status migrainosus; R74.8 Abnormal levels of other serum enzymes; Z86.79 Personal history of other diseases of the circulatory system; E78.00 Pure hypercholesterolemia, unspecified

== ENCOUNTER → 2024-05-25 10:25 | Outpatient (BNVA) | payer MEDICARE, SELFPAY | PROVIDERS: PCP Family Medicine; Visit Provider Family Medicine | DX: F41.8 Other specified anxiety disorders (principal); G43.909 Migraine, unspecified, not intractable, without status migrainosus; R74.8 Abnormal levels of other serum enzymes; E78.00 Pure hypercholesterolemia, unspecified; Z86.79 Personal history of other diseases of the circulatory system | CPT/HCPCS: 99212 ==

== ENCOUNTER 2024-09-27 11:41 | Outpatient (REF) | payer MEDICARE, SELFPAY ==
--- OUTSIDE RECORDS SUMMARY | 2024-09-27 12:29 | XMS_ITS | Clinical Summary ---
Author Organization [facility] Address [address] [address] Phone Care Team Providers Care Payable Processor Name Role Phone Nathaniel Eckert MD Primary Care Provider Medications atorvastatin (LIPITOR) 20 MG tablet Take 20 mg by mouth daily. 07/28/2020 Active cholecalciferol (VITAMIN D3) 25 MCG (1,000 unit) tablet Take 2,000 Units by mouth daily. 08/11/2020 Active DULoxetine (CYMBALTA) 60 MG capsule Take 60 mg by mouth 2 (two) times a day. 09/05/2020 Active nabumetone (RELAFEN) 500 MG tablet Take 500 mg by mouth. Active omeprazole (PRILOSEC) 20 MG capsule TAKE ONE CAPSULE BY MOUTH EVERY DAY NEEDED FOR ACID REFLUX 08/11/2020 Active pregabalin (LYRICA) 300 MG capsule 08/17/2020 Active tiZANidine (ZANAFLEX) 4 MG tablet Take 4 mg by mouth nightly at bedtime. 08/17/2020 Active cyanocobalamin, vitamin B-12, 100 MCG tablet Take 100 mcg by mouth daily. Active Social History Tobacco Use Types Packs/Day Years Used Date Smoking Tobacco: Never Smokeless Tobacco: Never Education Answer Date Recorded Are you interested in more education? Not on stefan e 09/06/2022 Are you concerned about learning? Not on file 09/06/2022 No 09/06/2022 No 09/06/2022 Digital Access Answer Date Recorded No 10/05/2022 No 10/05/2022 No 10/05/2022 Reliable internet access at home? Not on file 10/05/2022 Device with a working camera? Not on file Comments Unknown Sex and Gender Information Value Date Recorded Sex Assigned at Female 08/08/2020 1:22 PM EDT Legal Sex Female 9:41 PM EDT Gender Identity Female 08/08/2020 1:22 PM EDT Sexual Orientation Straight 08/08/2020 1: 22 PM EDT Last Filed Vital Signs Vital Sign Reading Time Taken Comments Blood Pressure 121/69 09/15/2020 10:27 AM EDT Pulse 80 09/15/2020 10:27 AM EDT Temperature 36.5 ??C (97.7 ??F) 09/15/2020 10:27 AM E DT Respiratory Rate - - Oxygen Saturation 99% 09/15/2020 10:27 AM EDT Inhaled Oxygen Concentration - - Weight 76.3 kg (168 lb 4.8 oz) 09/15/2020 10:27 AM EDT Height 157.5 cm (5' 2 ) 09/15/2020 10:27 AM EDT Body Mass Index 30.78 09/15/2020 10:27 AM EDT Plan of Treatment Health Maintenance Due Date Last Done Comments LIPID PANEL 1965 DEPRESSION SCREENING 1977 HEPATITIS B SCREENING 1983 HEPATITIS C SCREENING 1983 HIV ONE-TIME SCREENING (18-6 5 YEARS) 1983 HEPATITIS B VACCINES (1 of 3 - 19+ 3-dose series) 1984 PAP SMEAR 1986 MAMMOGRAM 2005 COLOGUARD 2010 COLONOSCOPY 2010 COLORECTAL CANCER SCREENING 2010 FIT TEST 2010 FOBT 2010 SIGMOIDOSCOPY 2010 VIRTUAL COLONOSCOPY 2010 PNEUMOCOCCAL VACCINES (50+ y ears) (1 of 1 - PCV) 2015 ZOSTER VACCINES (1 of 2) 2015 Adult Td,Tdap Booster 07/13/2022 07/13/2012 INFLUENZA VACCINE (#1) 2023 COVID-19 VACCINE ( - 2023-2 5 season) 2024 SMOKING STATUS SCREENING (On ce After 26 Yrs) Completed 09/15/2020 HEPATITIS A VACCINES Aged Out No long er eligible based on patient's age to complete this topic HIB VACCINES Aged Out No longer eligi ble based on patient's age to complete this topic MENINGOCOCCAL VACCINES (ACWY) Aged Out No longer eligible based on patient's age to complete this topic Medical Devices Not on file Insurance MEDICARE PART A & B MEDICARE PART A & B MEDICARE PART A & B MEDICARE PART A & B MEDICARE PART A & B MEDICARE PART A & B Care Teams Payable Processor Relationship Specialty Start Date End Date Nathaniel Eckert MD [address] [place] [id number] PCP - General 08/08/20 Additional Source Comments The information contained in this document represents components of the legal health record. It is not the complete legal health record.[facility]
--- OUTSIDE RECORDS SUMMARY | 2024-09-27 12:29 | XMS_ITS | Data Portability ---
Author Organization [facility], , [facility] Address [address] [place] [address] Assessment No assessment recorded. Plan of Treatment Reminders Order Date Submit Date Provider Last Modified By Organization Details Last Modified Time Details Appointments None recorded. Lab TSH, serum or plasma [facility], [address] [place] [address], [id number], 4 09:53:40 vitamin D, 25-hydrox y, total, serum [facility], [address] [place] [address], [address], 4 14:14:[address] [facility], [address] [place] [address], [address], 4 08:50:52 CMP, serum or plasma [facility], [address] [place] [address], [address], 4 08:58:53 cholester ol, total, serum 014 [facility], [address] [place] [address], [address], 4 08:58:54 Referral None recorded. Procedures None recorded. Surgeries None recorded. Imaging None recorded. Medication Orders None recorded. Patient TargetsNo targets recorded. Patient Instructions Encounter Date Encounter Id Patient Instructions Last Modified By Organization Details Last Modified Time 01/03/2014 [id number] Well Visit, Ages 18 to 65: Care Instructions Not available 01/04/2014 09:39:41 Not available 2013 08:50:53 Reason for Referral None Reported. Results Created Date Observation Date Name Description Value Unit Range Abnormal Flag Note LastModifiedBy Organization Detail LastModifiedTime 01/04/20 14 01/04/2014 CBC WBC 7.3 K/? ? ?L 4.0-10 .0 Not Available [address], [address], 01/04/2014 07:37:06 01/04/20 14 01/04/2014 CBC RBC 3.99 M/? ? ?L 3.93-5 .22 Not Available [address], [address], 01/04/2014 07:37:06 01/04/20 14 01/04/2014 CBC HGB 12.7 g/dL 11.2-1 5.7 Not Available [address], [address], 01/04/2014 07:37:06 01/04/20 14 01/04/2014 CBC HCT 38.8 % 34.1-4 4.9 Not Available [address], [address], 01/04/2014 07:37:06 01/04/20 14 01/04/2014 CBC MCV 97.2 ? ? ?L 79.4-9 4.8 high Not Available [address], [address], 01/04/2014 07:37:06 01/04/20 14 01/04/2014 CBC MCH 31.8 pg 25.6-3 2.2 Not Available [address], [address], 01/04/2014 07:37:06 01/04/20 14 01/04/2014 CBC MCHC 32.7 g/dL 32.2-3 5.5 Not Available [address], [address], 01/04/2014 07:37:06 01/04/20 14 01/04/2014 CBC plt 339.0 K/? ? ?L 182.0- 369.0 Not Available [address], [address], 01/04/2014 07:37:06 01/04/20 14 01/04/2014 CBC MPV 10.4 9.4-12 .3 Not Available [address], [address], 01/04/2014 07:37:06 01/04/20 14 01/04/2014 CBC neut% 75.2 % 34.0-7 1.1 high Not Available [address], [address], 01/04/2014 07:37:06 01/04/20 14 01/04/2014 CBC neut# 5.5 1.6-6. 1 Not Available [address], [address], 01/04/2014 07:37:06 01/04/20 14 01/04/2014 CBC lymph % 18.3 % 19.3-5 1.7 low Not Available [address], [address], 01/04/2014 07:37:06 01/04/20 14 01/04/2014 CBC lymph # 1.3 K/? ? ?L 1.2-3. 7 Not Available [address], [address], 01/04/2014 07:37:06 01/04/20 14 01/04/2014 CBC mono% 6.3 % 4.7-12 .5 Not Available [address], [address], 01/04/2014 07:37:06 01/04/20 14 01/04/2014 CBC mono# 0.5 0.2-0. 4 high Not Available [address] [place], [address], 01/04/2014 07:37:06 01/04/20 14 01/04/2014 CBC eo% 0.1 % 0.7-5. 8 low Not Available [address], [address], 01/04/2014 07:37:06 01/04/20 14 01/04/2014 CBC eo# 0.0 0.0-0. 4 low Not Available [address], [address], 01/04/2014 07:37:06 01/04/20 14 01/04/2014 CBC baso% 0.1 % 0.1-1. 2 Not Available [address], [address], 01/04/2014 07:37:06 01/04/20 14 01/04/2014 CBC baso# 0.0 0.0-0. 1 low Not Available [address], [address], 01/04/2014 07:37:06 01/04/20 14 01/04/2014 CBC RDW-CV 13.0 % 11.7-1 4.4 Not Available [address], [address], 01/04/2014 07:37:06 01/04/20 14 01/04/2014 CMP, serum or plasm a glucose 82 mg/dL 70-100 Not Available [address], [address], 01/04/2014 08:58:53 01/04/20 14 01/04/2014 CMP, serum or plasm a BUN 11 mg/dL 7-18 Not Available [address], [address], 01/04/2014 08:58:53 01/04/20 14 01/04/2014 CMP, serum or plasm a creatinine 1.0 mg/dL 0.8-1. 3 Not Available [address], [address], 01/04/2014 08:58:53 01/04/20 14 01/04/2014 CMP, serum or plasm a B/C 11.0 ratio Not Available [address], [address], 01/04/2014 08:58:53 01/04/20 14 01/04/2014 CMP, serum or plasm a GFR 66.3 mL/mi n Recom janae d GFR by the Natio nal Kidne y Found ation >60 mL/mi n/1.7 3m2 - Radha l <60 mL/mi n/1.7 3m2 - Chron ic Kidne y Disea se <15 mL/mi n/1.7 3m2 - Kidne y Failu re Not Available [address], [address], 01/04/2014 08:58:53 01/04/20 14 01/04/2014 CMP, serum or plasm a GFR - if 76.2 mL/mi n For Afric an Ameri can patie nts: Resul ts Multi plied by 1.21 Not Available [address], [address], 01/04/2014 08:58:53 01/04/20 14 01/04/2014 CMP, serum or plasm a sodium 137 mmol/ L 136-14 5 Not Available [address], [address], 01/04/2014 08:58:53 01/04/20 14 01/04/2014 CMP, serum or plasm a potassium 4.0 mmol/ L 3.5-5. 1 Not Available [address], [address], 01/04/2014 08:58:53 01/04/20 14 01/04/2014 CMP, serum or plasm a chloride 101 mmol/ L 96-107 Not Available [address], [address], 01/04/2014 08:58:53 01/04/20 14 01/04/2014 CMP, serum or plasm a anion gap 10.6 5.0-15 .0 Not Available [address], [address], 01/04/2014 08:58:53 01/04/20 14 01/04/2014 CMP, serum or plasm a CO2 25 mmol/ L 21-32 Not Available [address], [address], 01/04/2014 08:58:53 01/04/20 14 01/04/2014 CMP, serum or plasm a calcium 8.8 mg/dL 8.5-10 .3 Not Available [address], [address], 01/04/2014 08:58:53 01/04/20 14 01/04/2014 CMP, serum or plasm a total protein 7.1 g/dL 6.4-8. 2 Not Available [address], [address], 01/04/2014 08:58:53 01/04/20 14 01/04/2014 CMP, serum or plasm a albumin 3.9 g/dL 3.4-5. 0 Not Available [address], [address], 01/04/2014 08:58:53 01/04/20 14 01/04/2014 CMP, serum or plasm a globulin 3.2 g/dL Not Available [address], [address], 01/04/2014 08:58:53 01/04/20 14 01/04/2014 CMP, serum or plasm a A/G 1.2 ratio 0.8-2. 0 Not Available [address], [address], 01/04/2014 08:58:53 01/04/20 14 01/04/2014 CMP, serum or plasm a total bilirubin 0.30 mg/dL 0.00-1 .00 Not Available [address], [address], 01/04/2014 08:58:53 01/04/20 14 01/04/2014 CMP, serum or plasm a AST 14 U/L 15-37 low Not Available [address], [address], 01/04/2014 08:58:53 01/04/20 14 01/04/2014 CMP, serum or plasm a ALT 24 U/L 30-65 low Not Available [address], [address], 01/04/2014 08:58:53 01/04/20 14 01/04/2014 CMP, serum or plasm a alk. phos. 51 U/L 50-136 Not Available [address], [address], 01/04/2014 08:58:53 01/04/20 14 01/04/2014 mathew stero l, total , serum cholesterol 190 mg/dL <200 mg/dl Ananya able 200-2 39 mg/dl Borde rline High >240 mg/dl High Not Available [address], [address], 01/04/2014 08:58:54 01/04/20 14 01/04/2014 TSH, serum or plasm a TSH 1.82 uIU/m L 0.50-6 .00 The Ameri can Colle ge of Endoc rinol ogy and Ameri can Thyro id Assoc iatio n recom mend goal TSH value s betwe en 1.0-2 .5 mIU/m L. Not Available [address], [address], 01/04/2014 09:53:40 01/04/20 14 01/06/2014 vitam in D, 25-hy droxy , total , serum vitamin D, 25-hydroxy, EIA 25.9 NG/mL 20.0-9 9.9 Thera py is based on measu remen t of total 25-OH D, with level s less than 20 ng/mL indic ative of Vitam in D defic iency . Level s betwe en 20ng/ mL and 30 ng/mL sugge st insuf ficie ncy. Optim al Level s are great er than 30 ng/mL . Not Available [address], [address], 01/06/2014 14:14:36 05/10/20 14 05/10/2014 ultra sound , doppl er duple x, venou s No observ ation record ed. [address] [address] 05/13/2014 10:58:06 Result Notes None recorded. Procedures Surgical History Date Name Laterality Status Provider Name and Address Organization Details Recorded Time Other (specify) completed Mery Natarajan MD [address] [place] [address], [phone], [facility] 01/03/2014 12:57:12 Imaging Results Imaging Date Name Status LastModified by Organiz ation Details LastModified Time 05/10/2014 ultrasound, doppler duplex, venous completed [address] [address] 05/13/2014 10:58:06 Procedure Notes None recorded. Medical Equipment None Reported. Allergies Allergen ID Allergen Name Allergen Category Reaction Reaction Severity Criticality Documentation Date Start Date Code Code System Note Provider Name and Address Organization Details Recorded Time 425532 acetamino phen / oxycodone medicatio n Not available Not available Not available 01/03/2014 82612 3 RxNorm LORENZA Dunne, [facility] 4 12:15:08 Medications Name Sig Start Date Stop Date Status Note LastModified by Organization Details LastModified Time Aviane 0.1 mg-20 mcg tablet active Not Available Not Available Not Available valacyclovir 500 mg tablet active Not Available Not Availabl e Not Available gabapentin 100 mg capsule active Not Available Not Available N ot Available paroxetine 40 mg tablet TAKE ONE TABLET( S) EVERY DAY active Not Available Not Available No t Available Vitals Date Recorded Body weight Body mass index (BMI) Body height Systolic blood pressure Diastolic blood pressure Provider Name and Address Organization Details Last Updated DateTime 01/03/2014 29048.00 209 g 28.7 kg/m2 157.48 cm 102 mm[Hg] 60 mm[Hg] Millicent Nieto MA [facility] 4 12:15:08 Social History Question Answer Notes LastModified by Organizat ion Details LastModified Time Tobacco Smoking Status Former Smoker quit age 22 Mery Natarajan MD [address] [place] [address], [phone], [facility] 01/03/2014 12:57:12 What Is Your Level Of Caffeine Consumption? Moderate Information not available 01/03/2014 Which Illicit Or Recreational Drugs Have You Used? 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 2 2 Girls . 17 .19 Information not available 01/03/2014 Seat Belts Used Routinely Yes Information not available 01/03/2014 Sex: Unknown Functional Status Question Answer Note LastModified by Organizat ion Details LastModified Time What is your level of alcohol consumption? None Information not available 01/03/2014 What is your occupation? un-employment s Information not available 01/03/2014 Mental Status None recorded. Family History Relationship Description Onset Age of this Age Resolved Age Notes LastModified by Organization Details LastModified Time Father Malignant neoplasm of lung Not available 2013 12:57:12 Mother Diabetes mellitus Not available 2013 12:57:12 Medical History Condition Response NEUROLOGIC N EYE Y RENAL / GENITOURINARY N HEMATOLOGIC N Allergic Rhinitis Y INFECTIOUS DISEASE METABOLIC N Depression Y SKIN N CARDIOVASCULAR N GERD Y MUSCULOSKELETAL N ENDOCRINE N RHEUMATOLOGIC N RESPIRATORY N CANCER N Gynecological History Statement/Question Response Current Control Method Other Obstetrics History GPAL:G 0 P 0 0 0 0 Immunizations Vaccine Type Date Status Note Provider Nam e and Address Organization Details Recorded Time Tdap 01/31/2012 completed LORENZA Dunne, [facility] 02/16/2014 16:48:05 Past Encounters Encounter ID Performer Location Encounter Start Date Encounter Closed Date Diagnosis/Indication Diagnosis SNOMED-CT Code Diagnosis ICD10 Code Diagnosis Note [id number] Chidi Dee MD , [facility], OFFICE [address] [place] [address] 01/03/2014 11:23:09 01/05/2014 15:36:18 Adult health examination [id number] Request OBGYN records for pap and mammogram this year, see Risk Assessment and Lifestyle Change Counseling section above Counseling [id number] Major depr essive disorder [id number] Labs today, patient will call if she needs refills. Health Concerns Section Related Observation LastModified by Organization Detai ls LastModified Time None Recorded Concern Status LastModified by Organization Details LastModified Time None Recorded Advance Directives Directive None Recorded Payers Encounter Date Sequence Insurance Name Policy Number Policy Bazzi Covered Member ID Bazzi Member ID Guarantor Name 01/03/2014 1 [place] : [facility] Sheri Bragg [id number] Sheri Landryurbanmichele Notes Date Note Type Note Provider Name and Address Organization Details Recorded Time 01/03/2014 text/html Patient reports her OBGYN started her on aviane due to hot flashes, previously took gabapentin for this but this is on hold. Takes paroxetine for many years without difficulty and valacyclovir for HSV outbreaks. Mery Natarajan MD [address] [place] [address], [place], [address], [facility] 01/04/2014 08:50:54 OBGyn Episode No OBEpisode recorded.
[2024-09-27 12:46] LABS: Estimated Average Glucose 111 mg/dL; Hemoglobin A1C 127.2297 umol/L; Hemoglobin A1c % 5.5 % (<6.0); Total Hemoglobin (HGBA1C) 3448.0375 umol/L
[2024-09-27 12:48] LABS: Appearance Urine Cloudy; Color Urine Yellow; Glucose Urine UA Negative (Negative); Leukocyte Esterase Urine Small (1+) (Negative); Nitrite Urine Negative (Negative); Specific Gravity - Urine 1.015 (1.005-1.025); UMIC TRIGGER UA YES; Urine Blood Negative (Negative); Urine Ketones Negative (Negative); Urine Protein Negative (Neg-Trace)
[2024-09-27 12:56] LABS: Bacteria Urine 4+ (None Seen); Hyaline Casts Urine 0-2 /LPF (0-2); RBC Urine 0-2 /HPF (0-2); Squamous Epithelial Cell Urine >20 /HPF (0-2)
[2024-09-27 13:07] LABS: Alanine Aminotransferase 43 U/L (0-31); Albumin Level 4.6 g/dL (3.5-5.0); Alkaline Phosphatase 87 U/L (39-117); Anion Gap 11 (12-20); Aspartate Amino Transferase 31 U/L (5-31); Bilirubin Total 0.4 mg/dL (0.0-1.0); Blood Urea Nitrogen 11 mg/dL (9-16); Calcium 9.6 mg/dL (8.4-10.2); Carbon Dioxide 29 mmol/L (22-29); Chloride 106 mmol/L (96-108); Cholesterol 196 mg/dL (<200); Estimated Glomerular Filt Rate > 60; Glucose Fasting 100 mg/dL (60-99); HDL Cholesterol 70 mg/dL (>40); LDL Cholesterol Calculated 111 mg/dL (<100); Potassium 4.3 mmol/L (3.3-5.1); Sodium 142 mmol/L (135-145); Total Protein 7.3 g/dL (6.5-8.0); Triglycerides 79 mg/dL (<150)
== END 2024-09-27 11:42 | disposition home or self-care (01) ==
LOC: HO.LAB 11:41
PROVIDERS: PCP Family Medicine; Visit Provider Family Medicine
DX: Z13.89 Encounter for screening for other disorder (principal)
CPT/HCPCS: 36415; 80053; 80061; 81001; 83036

== ENCOUNTER 2024-09-27 12:18 | Emergency (ER) | payer MEDICARE, SELFPAY ==
--- NOTE | ~2024-09-27 | XR_ITS ---
EXAMINATION: XR FEMUR, LEFT CLINICAL INFORMATION: pain, injury COMPARISON: Correlated to left hip x-ray dated July 26, 2016. TECHNIQUE: AP and lateral views of the left femur were obtained. FINDINGS: No acute cortical disruption. No lytic or blastic lesions. Degenerative changes in the medial compartment left knee no fully included. Metallic linear foreign bodies overlapping the left and right hemisacrum, likely status post Essure procedure.. XR/XR femur LT 2V IMPRESSION: No acute fracture. Electronically signed by: Melquiades Argueta MD 09/27/2024 01:00 PM EDT
[2024-09-27 12:21] VITALS: BP 117/69; PULSE 80; RESP 18; TEMP 36.3; O2SAT 96; BMI 30.3
--- NOTE | 2024-09-27 12:25 | ED_ITS ---
HPI - General Adult General Chief complaint: Extremity Injury, Upper Stated complaint: l leg pain swelling Time Seen by Provider: 09/27/24 16:56 Source: patient Mode of arrival: ambulatory Limitations: no limitations History of Present Illness ED Provider: Britni Kapoor PA-C HPI narrative: Patient is a 59 year old assigned female at with a history of GERD, chronic pain, vertigo, and migraines presenting to the emergency department today with left thigh pain. Patient states that over the last few months she has had intermittent left upper leg pain. Patient states that over the last 2 days it has been worse. Patient denies any dizziness, lightheadedness, abdominal pain, nausea, vomiting, fever, chills, blurry vision, double vision, loss of vision, chest pain, difficulty breathing, shortness of breath, back pain, night sweats, pain with urination, increased urinary frequency, increased urinary urgency, blood in her urine or stool, syncope or a near syncopal episode, recent trauma or falls, bowel incontinence, bladder incontinence, or any other complaints at this time. Relieving factors: none Related Data Home Medications ?Medication ?Instructions ?Recorded ?Confirmed acetaminophen 500 mg tablet 1,000 mg PO Q6H PRN 11/07/22 05/25/24 (Tylenol Extra Strength) nadide (bulk) 100 % powder ea miscellaneous 11/19/22 05/25/24 (Nicotinamide Adenine Dinucleotide (NAD)) magnesium L-threonate 48 mg mg PO 12/05/22 05/25/24 magnesium (667 mg) capsule melatonin 12 mg disintegrating 12 mg PO BEDTIME PRN 08/22/23 05/25/24 tablet omega-3 fatty acids 1,000 mg 1,000 mg PO DAILY 09/11/23 05/25/24 capsule Previous Rx's ?Medication ?Instructions ?Recorded atorvastatin 10 mg tablet 10 mg PO BEDTIME 90 days #90 tabs 05/25/24 fluticasone propionate 50 1 spray intranasal Q12H 90 days 05/25/24 mcg/actuation nasal #48 grams spray,suspension (Flonase Allergy Relief) omeprazole 20 mg capsule,delayed 20 mg PO DAILY PRN Acid Reflux 90 05/25/24 release days #90 caps paroxetine HCl 20 mg tablet 20 mg PO DAILY 90 days #90 tabs 05/25/24 bupropion HCl 75 mg tablet See Rx Instructions PO BID 90 days 06/03/24 #180 tabs uubhpodbov-uexbulgvagcxk-cgvwxgqd 1 cap PO Q8H PRN pain 30 days #10 06/03/24 50 mg-300 mg-40 mg capsule caps (Fioricet) cholecalciferol (vitamin D3) 25 50 mcg (2 x 25 mcg (1,000 unit)) 06/03/24 mcg (1,000 unit) tablet PO DAILY 90 days #180 tabs lorazepam 0.5 mg tablet 0.5 mg PO Q12H PRN anxiety 30 days 06/03/24 #60 tabs meclizine 25 mg tablet 25 mg PO BID PRN dizziness 30 days 06/03/24 #60 tabs Allergies Allergy/AdvReac Type Severity Reaction Status Date / Time Latex, Natural Rubber Allergy Intermediate RASH, HIVES Verified 09/27/24 12:24 [LATEX, NATURAL RUBBER] buspirone AdvReac Unknown chest Verified 05/25/24 10:39 heaviness, increased anxiety pseudoephedrine AdvReac Unknown unknown Verified 05/25/24 10:39 hydrocodone acetaminophen Allergy Mild sick Uncoded 08/22/23 09:30 Mirtazapine AdvReac Unknown extreme Uncoded 08/22/23 09:30 somnolence Review of Systems Constitutional: Constitutional: Reports no additional constitutional complaints, Denies chills, Denies fever(s) and Denies night sweats Eyes: Eyes: Reports no additional eye complaints, Denies blurry vision, Denies change in vision, Denies diplopia, Denies eye discharge, Denies loss of vision and Denies eye pain ENT: Denies dizziness Cardiovascular: Cardiovascular: Reports no additional cardiovascular complaints, Denies chest pain, Denies lightheadedness, Denies Loss of Consciousness and Denies dyspnea Respiratory: Respiratory: Reports no additional respiratory complaints and Denies dyspnea Gastrointestinal: Gastrointestinal: Reports no additional gastrointestinal complaints, Denies abdominal pain, Denies melena, Denies hematochezia, Denies change in bowel habits and Denies change in stool character Genitourinary: Genitourinary: Denies hematuria, Denies urinary frequency, Denies dysuria, Denies urinary incontinence, Denies urinary hesitancy and Denies urinary urgency Musculoskeletal: Musculoskeletal: Reports no additional musculoskeletal complaints, Denies numbness and Denies tingling Comments: left upper leg pain Neurologic: Denies dizziness, Denies loss of vision, Denies numbness and Denies tingling Psychiatric: Psychiatric: Reports no additional psychiatric complaints Endocrine: Endocrine: Reports no additional endocrine complaints Hematologic/Lymphatic: Hematologic/Lymphatic: Reports no additional hemato logic/lymphatic complaints Allergic/Immunologic: Allergic/Immunologic: Reports no additional allergic/immunologic complaints [facility] Past Medical History Attestation statement: The following information was validated with the patient. Source: old records reviewed and nursing notes reviewed Medical History Contraception, device intrauterine Brain aneurysm Depression with anxiety Subarachnoid hemorrhage Lupus Hernia History of hiatal hernia Depression Gastroesophageal reflux disease Chronic GERD Fibromyalgia Surgical History History of repair of hiatal hernia History of nasal surgery Family History Family History Mother Diabetes Rheumatoid arthritis Father Lung cancer Sister Rheumatoid arthritis Family/Other Lupus Social History Social History Household Members: Family Housing: House Do you presently have visiting nurse or other home services: No Alcohol intake: current Alcohol intake frequency: holidays/special occasions only Comment: sleeping Patient Tobacco Use Status: Former Tobacco user e-Cigarette/Vaping Use: Never Used Second Hand Smoke Exposure: No Substance Use Type: Marijuana Advance Directives: No Advance Directives Information Provided: Yes service: No Current occupational status: disabled Current occupational exposures/hazards: No Sexual orientation: Straight/Heterosexual Cognitive needs: No Hearing needs: No Vision needs: No Physical Exam ED Vital Signs: Vital Signs - 24 hr 09/27/24 12:21 09/27/24 17:03 Temperature 97.3 F 97.3 F Pulse Rate 80 80 Respiratory Rate 18 18 Blood Pressure 117/69 117/69 Pulse Oximetry 96 96 Oxygen Delivery Method Room Air Room Air BMI result Body Mass Index 30.3 Const General: cooperative, no acute distress, alert and awake Nutritional Appearance: well nourished Orientation/consciousness: patient oriented x3 HENMT Head: Yes normal to inspection and Yes atraumatic Ears: hearing grossly normal bilaterally and external ears normal General nose exam: Normal external nose present, no nasal discharge noted and no epistaxis Face and sinus: Yes normal facial exam, No abrasion and No laceration Mouth: Normal oral and palatal mucosa present, no drooling and no muffled voice Eyes General: appearance normal, both eyes and all related structures Periorbital: periorbital findings normal Eyelids: Yes eyelids normal Conjunctivae: conjunctivae normal Pupils: Equal, round and reactive pupils present EOM: EOMs intact bilaterally Neck Neck: Yes normal visual inspection, Yes full ROM and Yes no lymphadenopathy Resp Effort & Inspection: normal respiratory effort and able to speak in complete sentences Neuro General: patient oriented x3, moves all extremities and CN's II-XI intact bila terally Cranial nerves: Yes Equal, round and reactive pupils present Cognition (Neuro): normal cognition Extrem General: Yes normal to inspection, Yes full ROM and Yes capillary refill normal Psych Appearance: grossly normal Mental Status: mental status grossly normal Affect: normal affect Attitude: cooperative Thought process: Normal thought process present Thought content: Normal thought content present Insight: Good insight present (Psych) Course Course Course Narrative: RME performed by Britni Kapoor PA-C. Patient is a 59 year old assigned female at presenting to the emergency department with left thigh pain over the last few weeks. 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 Imaging ordered. Patient placed back in the waiting room pending room availability and results. Medical Decision Making Medical Decision Making MDM Narrative: Patient is a 59 year old assigned female at with a history of GERD, chronic pain, vertigo, and migraines presenting to the emergency department today with left thigh pain. Patient's physical exam was unremarkable. Patient's left femur x-ray showed no acute process. Patient's clinical presentation is most consistent with a left quadriceps strain. Patient has no evidence of DVT on exam with no known / reported risk factors. The patient's pain is anterior - making spinal source much less likely. I explained my physical exam findings as well as all test results to the patient. I answered all questions asked by the patient. I stressed the importance of the patient taking her medication as directed (either prescribed or as the over the counter packaging recommends). I stressed the importance of the patient following up with her primary care provider. I stressed the importance of the patient returning to the emergency department immediately if her symptoms were to worsen or if she were to develop any dizziness, shortness of breath, difficulty breathing, chest pain, blurry vision, loss of vision, nausea, vomiting, abdominal pain, fever, chills, back pain, or any other complaints. Patient verbalized agreement and understanding with this treatment plan and discharge. Differential Diagnosis Differential Diagnoses: The differential diagnosis associated with the presentation includes Left quadriceps strain Left upper leg pain Admission/Observation Consideration of admission/observation: Escalation of care including admission/observation considered Patient would have been admitted to the hospital had her work up had any findings where hospital admission was appropriate and her clinical presentation warranted hospital admission. Independent Interpretation I performed an independent interpretation of an: Plain X-Ray Interpretation: My interpretation is in agreement with the radiologist's impression of this imaging study. EXAMINATION: XR FEMUR, LEFT CLINICAL INFORMATION: pain, injury COMPARISON: Correlated to left hip x-ray dated July 26, 2016. TECHNIQUE: AP and lateral views of the left femur were obtained. FINDINGS: No acute cortical disruption. No lytic or blastic lesions. Degenerative changes in the medial compartment left knee no fully included. Metallic linear foreign bodies overlapping the left and right hemisacrum, likely status post Essure procedure. XR/XR femur LT 2V IMPRESSION: No acute fracture. Electronically signed by: Melquiades Argueta MD 09/27/2024 01:00 PM EDT Dictated By: Melquiades Enriquez MD Signed By: Electronically signed by Melquiades Montoya MD 09/27/24 1300 Radiology Impression Discussion of test interpretation with radiology: I have reviewed the radiologist's reading. Discharge Plan Discharge Clinical Impression: Quadriceps strain Patient Disposition: Home, Self-Care Instructions: Muscle Strain (DC) Additional Instructions: Your left femur x-ray was reassuring there is no pamela process going on. Your examination is most consistent with a quadriceps muscle strain. Apply heat (with a barrier between the heat source and your skin) to the area. Follow up with your primary care provider. Return to the emergency department immediately if your symptoms worsen or if you develop any numbness, tingling, dizziness, shortness of breath, difficulty breathing, chest pain, blurry vision, loss of vision, nausea, vomiting, abdominal pain, fever, chills, back pain, or any other complaints. Please see the information below about our Patient Portal. If you are not yet enrolled in the [facility] Patient Portal, you will receive an enrollment email invitation following your visit to any [facility]/formerly [facility] setting. You may also self-enroll in the Patient Portal by visiting our website: [email or web address] The following information is required to access the Patient Portal: - Your [facility] Medical Record Number - Your personal home email address (must match what is in your electronic medical record, Registration staff can assist with this) - Name - Date of Capabilities of the Patient Portal: - Message some providers - View upcoming appointments - Access your health summary, medical history, and visit history - View current conditions and allergies - View procedure and lab results - View your medications, including guidelines, side effects, and precautions - Complete pre-appointment questionnaires requested by your provider - Ready summary reports of your office visits and procedures To access the Patient Portal Mobile [employer], follow these directions: - Search [employer] in the [employer] Store or [employer] Store - Download the [employer] - Search for [facility] - Enter your login/password Prescriptions: No Action bupropion HCl 75 mg tablet See Rx Instructions PO BID 90 Days Qty: 180 3RF Rx Instructions: 75mg AM & 37.5mg PM orally 2 times a day; wmucgmjljg-vtodsuijjuulc-kalf [Fioricet] 50-300-40 mg capsule 1 cap PO Q8H PRN (Reason: pain) 30 Days Qty: 10 0RF cholecalciferol (vitamin D3) 25 mcg (1,000 unit) tablet 50 mcg PO DAILY 90 Days Qty: 180 3RF lorazepam 0.5 mg tablet 0.5 mg PO Q12H PRN (Reason: anxiety) 30 Days Qty: 60 0RF meclizine 25 mg tablet 25 mg PO BID PRN (Reason: dizziness) 30 Days Qty: 60 2RF acetaminophen [Tylenol Extra Strength] 500 mg tablet 1,000 mg PO Q6H PRN magnesium L-threonate 48 mg magnesium (667 mg) capsule PO Nicotinamide Adenine Dinuc. 100 % powder miscellaneous Rx Instructions: IV therapy. melatonin 12 mg tablet,disintegrating 12 mg PO BEDTIME PRN atorvastatin 10 mg tablet 10 mg PO BEDTIME 90 Days Qty: 90 3RF fluticasone propionate [Flonase Allergy Relief] 50 mcg/actuation spray,hernandez spension 1 spray intranasal Q12H 90 Days Qty: 48 2RF Rx Instructions: administer into each nostril omeprazole 20 mg capsule,delayed release(DR/EC) 20 mg PO DAILY PRN (Reason: Acid Reflux) 90 Days Qty: 90 3RF paroxetine HCl 20 mg tablet 20 mg PO DAILY 90 Days Qty: 90 3RF omega-3 fatty acids 1,000 mg capsule 1,000 mg PO DAILY Referrals: Nathaniel Eckert MD [Primary Care Provider] - Interventions: ED Discharge Assessment Last Done: 09/27/24 17:03 Discharge Date/Time: 09/27/24 17:04 Print Language: [place]
[2024-09-27 17:03] VITALS: BP 117/69; PULSE 80; RESP 18; TEMP 36.3; O2SAT 96
== END 2024-09-27 17:04 | disposition home or self-care (01) ==
PROVIDERS: Emergency Provider Emergency Medicine; PCP Family Medicine
DX: S76.112A Strain of left quadriceps muscle, fascia and tendon, initial encounter (principal); X58.XXXA Exposure to other specified factors, initial encounter; M79.652 Pain in left thigh; Y93.9 Activity, unspecified; Y92.9 Unspecified place or not applicable; Y99.9 Unspecified external cause status; K21.9 Gastro-esophageal reflux disease without esophagitis; R42 Dizziness and giddiness; F12.90 Cannabis use, unspecified, uncomplicated; Z79.899 Other long term (current) drug therapy
CPT/HCPCS: 36415; 73552; 80053; 80061; 81001; 83036; 99282; 99283

== ENCOUNTER → 2024-09-27 12:25 | Outpatient (BNV) | payer MEDICARE, SELFPAY | PROVIDERS: PCP Family Medicine; Visit Provider Radiology Diagnostic Radiology | DX: M79.652 Pain in left thigh (principal) | CPT/HCPCS: 73552 ==

== ENCOUNTER 2024-09-29 10:43 | Outpatient (AMB) | payer MEDICARE, SELFPAY ==
--- NOTE | 2024-09-29 10:45 | A.OFFPC_ITS ---
Vital Signs 09/29/24 10:50 Height 5 ft 2 in Weight 163 lb 6 oz BMI 29.9 BP 98/62 Blood Pressure Location Rt brachial Position Sitting Respiration 17 Pulse 87 Pulse Source Pulse Oximeter Temp 98.6 F Temp Source Temporal Artery Scan Pulse Oximetry (%) 97 Oxygen Delivery Method Room Air Intake Visit Reasons: f/u labs Intake Note: Sheri presents in the office today to go over her most recent lab results. Allergies Latex, Natural Rubber [LATEX, NATURAL RUBBER] Allergy (Intermediate, Verified 09/29/24 10:48) RASH, HIVES buspirone Adverse Reaction (Unknown, Verified 09/29/24 10:48) chest heaviness, increased anxiety pseudoephedrine Adverse Reaction (Unknown, Verified 09/29/24 10:48) unknown hydrocodone acetaminophen Allergy (Mild, Uncoded 09/29/24 10:48) sick Mirtazapine Adverse Reaction (Unknown, Uncoded 09/29/24 10:48) extreme somnolence Medication List - Last Reconciled 09/29/24 by Nathaniel Eckert MD acetaminophen (Tylenol Extra Strength) 1,000 mg PO Q6H PRN atorvastatin 10 mg PO BEDTIME 90 days bupropion HCl 75mg AM & 37.5mg PM orally 2 times a day; 90 days wglaechskf-rbsmfnzpiajhp-qacc 50-300-40 mg (Fioricet) 1 cap PO Q8H PRN 30 days cholecalciferol (vitamin D3) 50 mcg (2 x 25 mcg (1,000 unit)) PO DAILY 90 days fluticasone propionate 50 mcg/actuation (Flonase Allergy Relief) 1 spray intranasal Q12H 90 days lorazepam 0.5 mg PO Q12H PRN 30 days magnesium L-threonate mg PO meclizine 25 mg PO BID PRN 30 days melatonin 12 mg PO BEDTIME PRN nadide (bulk) 100% (Nicotinamide Adenine Dinucleotide (NAD)) IV therapy. 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 Recent ED visit 09/27/24 for L thigh pain. Had intermittent L upper leg pain which had worsened the past 2 days. L femur x-ray was reassuring. Exam most consistent with quadriceps muscle strain. Labs drawn 09/27/24. A1c 5.5%. Elevated ALT of 43. Triglycerides 79. TC 196. LDL 111. HDL 70. Ongoing anxiety/depression. She also expresses frustration about memory changes. She notes hx of brain aneurysm. HPI Comments History of Present Illness Details Documentation assistance for Nathaniel Eckert MD, was provided by Dorian Wise, Rubber Stamp Die Inspector on 09/29/2024 at 11:37 AM EST. I, Dr. Eckert, have read, observed, and verified documentation. [facility] Medical History Contraception, device intrauterine Brain aneurysm Depression with anxiety Subarachnoid hemorrhage Lupus Hernia History of hiatal hernia Depression Gastroesophageal reflux disease Chronic GERD Fibromyalgia Surgical History History of repair of hiatal hernia History of nasal surgery Family History Mother Diabetes Rheumatoid arthritis Father Lung cancer Sister Rheumatoid arthritis Family/Other Lupus Social History (Updated 09/29/24 @ 10:50 by Rayne Teixeira MA) Household Members: Family Housing: House Do you presently have visiting nurse or other home services: No Alcohol intake: current Alcohol intake frequency: holidays/special occasions only Comment: sleeping Patient Tobacco Use Status: Former Tobacco user e-Cigarette/Vaping Use: Never Used Second Hand Smoke Exposure: No service: No Current occupational status: disabled Current occupational exposures/hazards: No Sexual orientation: Straight/Heterosexual Cognitive needs: No Hearing needs: No Vision needs: No Female Reproductive History Menstrual Age of Menarche: 11 Questionnaire Thrive Questionnaire Date Thrive assessed: 05/18/24 I am a: Patient What is your living situation today?: I do not have a steady places to live I am temporarily staying with others Within the past 12 months, did the food you bought not last and you didn't have the money to get more?: Never true Within the past 12 months, did you worry whether your food would run out before you got money to buy more?: Never true Do you have trouble paying for medicines?: No Do you have trouble getting transportation to medical appointments?: No Do you have trouble paying your heating and electricity bill?: I choose not to answer this question Do you have trouble taking care of your child, family member or friend?: I choose not to answer this question Do you have trouble with day-to-day activities such as bathing, preparing meals, shopping, managing finances, etc.?: Yes Are you currently unemployed and looking for a job?: No Are you interested in more education?: No Please select the resources that you would like help with: None Currently or been in a relationship where the following occur: No concerns reported THRIVE Score: 1 OLESYA-7 AMB Questionnaire OLESYA-7 Date OLESYA - 7 assessed: 12/12/23 Source: Developed by Drs. Wil Sharma, Lois Delcid, Smooth Timmons and colleagues, with an educational hail from [employer]. Review of Systems Const Denies chills, Denies fatigue, Denies fever(s), Denies headache(s) and Denies weakness ENT Denies dizziness and Denies headache(s) Card Denies dyspnea Resp Denies cough, Denies dyspnea, Denies wheezing and Denies other (shortness of breath) Musc Denies numbness and Denies tingling Neuro Denies dizziness, Denies headache(s), Denies numbness, Denies tingling and Denies weakness Psych Denies anxiety and Denies depression Endo Denies fatigue Aller/Immun Denies wheezing Physical exam (Primary Care) Vital Signs: Last Vital Signs Temp 98.6 F 09/29/24 10:50 Pulse 87 09/29/24 10:50 Resp 17 09/29/24 10:50 BP 98/62 09/29/24 10:50 Pulse Ox 97 09/29/24 10:50 Oxygen Delivery Method Room Air 09/29/24 10:50 BMI result Body Mass Index 29.9 Tobacco/Smoking Status: Tobacco use Status Tobacco use date assessed 09/29/24 09/29/24 10:52 Patient Tobacco Use Status Former Tobacco user 09/29/24 10:50 e-Cigarette/Vaping Use Never Used 09/29/24 10:50 Thrive Assessment: Date of Thrive Assessment Date Thrive assessed 05/18/24 09/29/24 10:47 Currently or been in a relationship where the following occur: No concerns reported Const General: well developed; No acute distress Nutritional Appearance: well nourished Orientation/consciousness: patient oriented x3 HENMT Head: Yes normocephalic and Yes atraumatic Eyes General: appearance normal, both eyes and all related structures Pupils: Equal, round and reactive pupils present EOM: EOMs intact bilaterally Resp Effort & Inspection: normal respiratory effort Auscultation: clear to auscultation bilaterally Cardio Rate: regular rate Rhythm: regular rhythm Heart sounds: S1 normal heart sound present, S2 normal heart sound present, no gallops, no murmurs and no rubs Neuro General: patient oriented x3 and gait normal Cranial nerves: Yes Equal, round and reactive pupils present Psych Affect: normal affect Coding Level of Care Code Est Pt Level 5 (94183) Diagnoses Depression with anxiety F41.8 Elevated liver enzymes R74.8 Elevated fasting glucose R73.01 Left thigh pain M79.652 HLD (hyperlipidemia) E78.5 Memory changes R41.3 Assessment & Plan Assessment & Plan (1) Depression with anxiety: Code(s): F41.8 - Other specified anxiety disorders Category: Medical Plan: Taking?paroxetine?lorazepam?and?bupropion?as?prescribed Fairly?stable Continue?current?medication?regimen (2) Elevated liver enzymes: Code(s): R74.8 - Abnormal levels of other serum enzymes Category: Medical Plan: Liver?enzymes?are?improving Continue?good?hydration?and?weight?control Avoid?excess?Tylenol?and?alcohol Will?continue?to?monitor (3) Elevated fasting glucose: Code(s): R73.01 - Impaired fasting glucose Category: Medical Plan: Elevated?fasting?blood?sugar, A1c?at?top?normal?range Encouraged?diet?lower?in?sugars?and?starches (4) Left thigh pain: Code(s): M79.652 - Pain in left thigh Category: Medical Plan: Bilateral?thigh?pain?which?seems?to?be?associated?with?increas ed?walking?and?exercise Did?see?ED?regarding?this?but?symptoms?have?already?begun?to?improve Hydrate?well Gentle?stretching She?will?let?me?know?if?this?is?worsening (5) HLD (hyperlipidemia): Code(s): E78.5 - Hyperlipidemia, unspecified Category: Medical Plan: LDL?cholesterol?has?risen.??Goal?is?less?than?100 Will?increase?atorvastatin?to?20?mg?daily (6) Memory changes: Code(s): R41.3 - Other amnesia Category: Medical Plan: Will?refer?to?neuropsychiatry?for?testing She?spends?much?of?her?year[place]in[place]. She?will?for?a?specialist?there?and?I?will?send?a?referral. Medications: Changed From atorvastatin 10 mg PO BEDTIME 90 days 90 tabs 3RF To atorvastatin 20 mg PO BEDTIME 90 days 90 tabs 3RF Refilled wtztynmtli-emtkywakutqgj-jwgr 50-300-40 mg (Fioricet) 1 cap PO Q8H 30 days PRN 10 caps 0RF pain lorazepam 0.5 mg PO Q12H 30 days PRN 60 tabs 0RF anxiety
[2024-09-29 10:50] VITALS: BP 98/62; PULSE 87; RESP 17; TEMP 37; O2SAT 97; BMI 29.9
--- OUTSIDE RECORDS SUMMARY | 2024-09-29 12:10 | XMS_ITS | Clinical Summary ---
Author Organization [facility] Address [address] [address] Phone Care Team Providers Care Patient Access Coordinator Name Role Phone Nathaniel Eckert MD Primary [...] MEDICARE PART A & B Care Teams Patient Access Coordinator Relationship Specialty Start Date End Date Nathaniel Eckert MD [address] [place] [id number] PCP - General 08/08/20 Additional Source Comments The information contained in this document represents components of the legal health record. It is not the complete legal health record.[facility]
--- OUTSIDE RECORDS SUMMARY | 2024-09-29 12:10 | XMS_ITS | Encounter Summary ---
Author Organization [facility] Address [facility] [place] [address] Care Team Providers Care Data Virtualization Consultant Name Role Phone Romeo Chandler Primary Care Provider Fred e Encounter Details Date Type Department Care Team Description 10/13/2017 Lehr Attendant Report Medical Records [address] [place] [id number] Abstract, Provider Social History Tobacco Use Types Packs/Day Years Used Date Smoking Tobacco: Former Cigarettes Q uit: 09/10/2003 Smokeless Tobacco: Never Sex Assigned at Date Recorded Not on file documented as of this encounter Plan of Treatment Not on file documented as of this encounter Visit Diagnoses Not on filedocumented in this encounter Care Teams Data Virtualization Consultant Relationship Specialty Start Date End Date Romeo Chandler PCP - General Internal Medicine 09/17/17 documented as of this encounter
== END 2024-09-29 11:39 | disposition home or self-care (01) ==
LOC: HO.HMCFM 10:44
PROVIDERS: PCP Family Medicine; Visit Provider Family Medicine
DX: R74.8 Abnormal levels of other serum enzymes (principal); F41.8 Other specified anxiety disorders; R73.01 Impaired fasting glucose; M79.652 Pain in left thigh; E78.5 Hyperlipidemia, unspecified; R41.3 Other amnesia

== ENCOUNTER → 2024-09-29 10:43 | Outpatient (BNVA) | payer MEDICARE, SELFPAY | PROVIDERS: PCP Family Medicine; Visit Provider Family Medicine | DX: F41.8 Other specified anxiety disorders (principal); R74.8 Abnormal levels of other serum enzymes; R73.01 Impaired fasting glucose; E78.5 Hyperlipidemia, unspecified; R41.3 Other amnesia; M79.652 Pain in left thigh | CPT/HCPCS: 99212 ==